=== PATIENT | male | born 1950 | race Caucasian/White ===

== ENCOUNTER → 2016-08-30 | Outpatient (CLI) | payer OTHER ==
[2016-08-30 12:07] LABS: Blood Urea Nitrogen 13 mg/dL (9-20); Non-African American GFR(MDRD) >60 (>60 ml/min/1.73 sqM)
--- NOTE | 2016-08-30 13:48 | CT ---
EXAMINATION TYPE: CT abdomen pelvis w con DATE OF EXAM: 08/30/2016 1:30 PM REFERENCE: NONE HISTORY: Prostate Cancer C61 HISTORY: Prostate CA REFERENCE: NONE CT DLP: 1441 mGy Automated exposure control for dose reduction was used. TECHNIQUE: Helical acquisition through the abdomen and pelvis was obtained following the oral ingesti on of with Oral Contrast and following intravenous administration of 100 mL of Omnipaque 300. The brenda a was reformatted in axial, coronal and sagittal projections. FINDINGS: There are emphysematous changes throughout the lungs. There is no pleural or pericardial f luid. The heart is not enlarged. Within the abdomen, the liver, spleen and gallbladder are normal. Both adrenal glands are normal. Both kidneys demonstrate function and appear morphologically normal. The pancreas is unremarkable. There is a 4.5 cm infrarenal abdominal aortic aneurysm with concentric chronic thrombus within it. Th is extends to the bifurcation but does not involve the bifurcation. There is no significant retroperitoneal, iliac or inguinal adenopathy. The bladder is unremarkable. The prostate gland is not visualized. There are occasional diverticula within the sigmoid colon. There is no radiographic evidence of diver ticulitis. The appendix is not visualized. Small bowel loops are normal. There is no evidence of free fluid or free air. There is degenerative disc disease and hypertrophic spondylosis throughout the spine. There are some sclerotic endplate changes. There is a solitary area of sclerosis in the left femoral head. This like ly represents a bone island. IMPRESSION: 1. DIFFUSE EMPHYSEMATOUS CHANGES THROUGHOUT THE LUNGS. 2. INFRARENAL ABDOMINAL AORTIC ANEURYSM WITH MAXIMAL TRANSVERSE DIMENSION OF 4.5 CM. 3. MINIMAL DIVERTICULOSIS OF THE SIGMOID COLON. 4. MILD DEGENERATIVE CHANGE WITHIN THE SPINE.
--- NOTE | 2016-08-30 16:13 | NM ---
EXAMINATION TYPE: NM bone scan whole body DATE OF EXAM: 08/30/2016 3:30 PM COMPARISON: CT abdomen pelvis same date HISTORY: Prostate carcinoma Delayed whole-body scanning was performed following the injection of 27.2 mCi Tc 99m MDP. Images acq uired 3.5 hours post injection. FINDINGS: Soft tissue uptake is within normal limits. Uptake within the knees, feet, hands, shoulders, and spin e is likely degenerative. No areas of abnormal increased or decreased radiopharmaceutical uptake to s uggest metastatic disease. IMPRESSION: Degenerative changes.
== END | disposition home or self-care (01) ==
LOC: RADCTMAIN 11:23
PROVIDERS: ATTEND Urology
DX: I71.4 Abdominal aortic aneurysm, without rupture (principal); K57.30 Diverticulosis of large intestine without perforation or abscess without bleeding; R94.8 Abnormal results of function studies of other organs and systems; C61 Malignant neoplasm of prostate
CPT/HCPCS: 82565; 84520; 74177; 78306; 36415; A9503; Q9967

== ENCOUNTER → 2017-05-29 | Outpatient (CLI) | payer OTHER | END | disposition home or self-care (01) | LOC: LABWHC1 15:42 | PROVIDERS: ATTEND Physician Assistant | DX: Z01.818 Encounter for other preprocedural examination (principal) | CPT/HCPCS: 36415; 93005 ==

== ENCOUNTER → 2018-07-16 | Outpatient (CLI) | payer OTHER ==
--- NOTE | 2018-07-17 09:16 | CTL ---
EXAMINATION TYPE: CT Low Dose Lung DATE OF EXAM ORDERED: 07/16/2018 HISTORY: Personal history of tobacco abuse. Lung cancer screening CT DLP: [address]DI: 2.7 mGy Automated exposure control for dose reduction was used. SCREENING VISIT: Initial COMPARISON: None TECHNIQUE: Low dose computed tomography scan was performed through the chest at 1 mm thick sections a nd reconstructed images in the coronal plane at [address] DIAGNOSTIC QUALITY: Satisfactory FINDINGS: LUNG NODULES: Present, detailed below: There is a solid 3 mm pulmonary nodule appearing to be contiguous with the pleural extension and ther efore possibly related to apical scarring seen on series 4 image 40. This appears solid in nature. Si milar to this there is a 2 mm nodule on series 4 image 51 on the right. There is a 2 mm subpleural solid pulmonary nodule in the right middle lobe on series 4 image 155. Along the interlobar fissure there is an elongated possible intrafissural lymph node measuring 5 mm o n image 163. 2 mm solid pulmonary nodule seen within the left upper lobe on series 4 image 139. LUNGS: COPD: Severity: Moderate Fibrosis: Severity: Minimal biapical pleural parenchymal fibrosis. Lymph nodes: Nonenlarged RIGHT PLEURAL SPACE: Effusion: None Calcification: None Thickening: None Pneumothorax: None LEFT PLEURAL SPACE: Effusion: None Calcification: None Thickening: None Pneumothorax: None HEART: Heart Size: Nonenlarged Coronary calcification: Moderate Pericardial effusion: None OTHER FINDINGS: Upper abdomen: Grossly unremarkable unenhanced limited unenhanced portions. Bony thorax: Mild multilevel degenerative changes of the thoracic spine. Supraclavicular region: The thyroid gland is slightly prominent in size as it extends to the sternal border. Other: Ascending thoracic aorta is mildly enlarged measuring up to 4.3 cm. There is mild symmetric re troareolar probable gynecomastia. IMPRESSION: 1. Bilateral pulmonary nodules that are subcentimeter corresponding to a LUNG RADS category 2. Follow -up CT is recommended in 12 months to ensure stability. 2. Moderate underlying pulmonary emphysema. 3. Mild ascending thoracic aortic aneurysmal dilatation measuring 4.[address] CHEST RECOMMENDATION: Annual low dose CT thorax is recommended CT LUNG RAD: Lung-Rad 2 Benign Appearance or Behavior
== END ==
LOC: RADCTMAIN 15:45
PROVIDERS: ATTEND Family Medicine
DX: Z12.2 Encounter for screening for malignant neoplasm of respiratory organs (principal); I71.2 Thoracic aortic aneurysm, without rupture; J43.9 Emphysema, unspecified; R91.8 Other nonspecific abnormal finding of lung field; F17.210 Nicotine dependence, cigarettes, uncomplicated

== ENCOUNTER → 2018-12-25 | Outpatient (CLI) | payer OTHER ==
[2018-12-25 09:41] LABS: African American GFR (CKD) >90 (>60 ml/min/1.73 sqM); Blood Urea Nitrogen 16 mg/dL (9-20)
--- NOTE | 2018-12-25 12:07 | CT ---
EXAMINATION TYPE: CT abdomen pelvis w con DATE OF EXAM: 12/25/2018 COMPARISON: CT abdomen and pelvis August 30, 2016 HISTORY: Prostate CA per order. 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 DLP: 1207 mGycm, Automated Exposure Control for Dose Reduction was Utilized. CONTRAST: CT scan of the abdomen and pelvis is performed with oral and with IV Contrast, patient injected with 100 mL of Isovue 300. FINDINGS: LUNG BASES: Moderate emphysematous changes noted in the visualized lung bases. LIVER/GB: No significant abnormality is appreciated. PANCREAS: No significant abnormality is seen. SPLEEN: No significant abnormality is seen. ADRENALS: No significant abnormality is seen. KIDNEYS: No significant abnormality is seen. BOWEL: Oral contrast reaches level of the proximal to mid transverse colon. There is ectatic or redun dant transverse colon. There is no suspicious small or large bowel dilatation. PROSTATE/SEMINAL VESICLES: Prostate is not visualized presumed surgically absent. No suspicious recur rent mass at level prostate bed are identified. LYMPH NODES: No greater than 1cm abdominal or pelvic lymph nodes are appreciated. OSSEOUS STRUCTURES: Mild to moderate compression fracture involving superior L1 endplate is new from prior. It is sclerotic suggesting it is chronic in age however. There is moderate disc space narrowin g with endplate sclerosis at the lumbosacral junction. There is mild to moderate although probably an terior spurring with mild to moderate disc space narrowing involving L3-L4 and L4-L5 levels. No suspi cious new sclerotic foci are seen. OTHER: There is redemonstration of infrarenal AAA measuring approximately 6 to 7 cm in length sagitta l image 39. There is moderate to severe peripheral anomaly noncalcified plaque redemonstrated. Aneury sm measures up to 4.7 x 4.4 cm transversely axial image 37 which is felt increased in size from 4.3 x 4.0 cm prior study image 41. There is fairly severe plaque in the right common iliac artery causing stenosis likely greater than 50% axial image 48 and 49 for reference but no significant change from p rior. IMPRESSION: 1. No suspicious new mass or adenopathy is identified to suggest malignant prostatic neoplastic recur rence. 2. Enlarging AAA up to 4.7 cm current study. Advise at minimum 6 month surveillance and also consider surgical or endovascular referral. Significant stenosis greater than 50% though present in the right common iliac artery 3. Interval mild to moderate compression fracture L1 level from 2017 study but felt chronic in age.
--- NOTE | 2018-12-25 16:51 | NM ---
EXAMINATION TYPE: NM bone scan whole body DATE OF EXAM: 12/25/2018 COMPARISON: Prior bone scan 08/30/2016, CT 12/25/2018 HISTORY: Prostate cancer Delayed whole-body scanning was performed following the injection of 25.4 mCi Tc 99m MDP. Images acq uired 4 hours post injection. FINDINGS: Bandlike area of increased radio from a suitable uptake is noted at approximately the L1 vertebral romel dy level which is an interval finding and corresponds to the CT abnormality. Mild additional uptake p resent at the lumbosacral junction and lumbar spine likely is degenerative. Focus of increased uptake is present over the region of the lateral acetabulum as well as within the region of the posterior s acrum, interval findings. Uptake within the maxilla and mandible is likely due to periodontal disease . Degenerative uptake seen within the wrists and shoulders, sternoclavicular joints. Uptake in the an terior neck is stable. IMPRESSION: Metastatic disease is not excluded. Pelvic, lumbar MRI may be of benefit.
== END | disposition home or self-care (01) ==
LOC: RADCTMAIN 08:26
PROVIDERS: ATTEND Urology
DX: Z08 Encounter for follow-up examination after completed treatment for malignant neoplasm (principal); I71.4 Abdominal aortic aneurysm, without rupture; Z85.46 Personal history of malignant neoplasm of prostate; Z90.79 Acquired absence of other genital organ(s)
CPT/HCPCS: 82565; 84520; 74177; 36415; 78306; A9503; Q9967 ×2

== ENCOUNTER → 2019-10-09 | Outpatient (CLI) | payer OTHER | END | disposition home or self-care (01) | LOC: LABWHC1 14:36 | PROVIDERS: ATTEND Family Medicine | DX: Z20.828 Contact with and (suspected) exposure to other viral communicable diseases (principal) ==

== ENCOUNTER → 2020-01-07 | Outpatient (CLI) | payer OTHER ==
--- NOTE | 2020-01-07 08:37 | CT ---
EXAMINATION TYPE: CT chest wo con DATE OF EXAM: 01/07/2020 COMPARISON: Prior low-dose lung screening CT July 16, 2018. Older CT January 13, 2012. HISTORY: solitary pulmonary nodule CT DLP: 360.5 mGycm. Automated Exposure Control for Dose Reduction was Utilized. TECHNIQUE: CT scan of the thorax is performed without IV contrast. FINDINGS: LUNGS: A background moderate underlying emphysematous change is redemonstrated. Stable micronodules a nd scarlike opacity 4 reference largest right middle lobe anteriorly 5 by 2 mm scarlike opacity axia l image 35. No new greater than 4 mm suspicious enlarging pulmonary nodules. No pleural effusion or p neumothorax seen bilaterally. MEDIASTINUM: Lack of IV contrast is noted to limit evaluation for mediastinal and especially hilar ad enopathy. There are no definitive greater than 1 cm hilar or mediastinal lymph nodes. No cardiomega ly or pericardial effusion is seen. Coronary artery calcification is redemonstrated. Stable ascending aortic aneurysm up to 4.2 cm on current study axial image 33. OTHER: There is partial visualization of known AAA measuring 4.1 cm transversely axial images 75. Mil d symmetric bilateral subareolar gynecomastia redemonstrated. Prominent mild to moderate height loss involving the L1 vertebra superior endplate and the anterior aspect is now identified. This was subac [place] abdominal CT December 25, 2018 now chronic in age. IMPRESSION: Moderate emphysematous change without new or enlarging suspicious nodules.
== END | disposition home or self-care (01) ==
LOC: RADCTMAIN 06:35
PROVIDERS: ATTEND Family Medicine
DX: J43.9 Emphysema, unspecified (principal); R91.1 Solitary pulmonary nodule
CPT/HCPCS: 71250

== ENCOUNTER → 2020-10-21 | Outpatient (CLI) | payer OTHER ==
[2020-10-21 15:47] LABS: African American GFR (CKD) >90 (>60 ml/min/1.73 sqM); Blood Urea Nitrogen 14 mg/dL (9-20); Non-African American GFR(CKD) 89 (>60 ml/min/1.73 sqM)
--- NOTE | 2020-10-21 16:58 | CT ---
EXAMINATION TYPE: CT angio abdomen pelvis DATE OF EXAM: 10/21/2020 COMPARISON: 12/25/2018 INDICATION: Follow up for abdominal aortic aneurysm. DLP: 1834 mGycm, Automated exposure control for dose reduction was used. CONTRAST: 100ml mL of Isovue 370. Study performed without Oral Contrast TECHNIQUE: Axial images were obtained from above the diaphragm to the pubic rami in the axial plane a t 5 mm thick sections. Reconstructed images are reviewed on the computer in the coronal plane. 3-D reconstructed images performed on a separate computer by the technologist are presented in rotated on the PACS computer. FINDINGS: Limited CT sections are obtained the lung bases. The lung bases are clear. Emphysematous changes ar e evident. CT ABDOMEN: Liver: Normal Spleen: Normal Pancreas: Normal Adrenal glands: The adrenal glands are normal. Gallbladder: Normal Kidneys: No masses are evident. No hydronephrosis is present. No cysts are present. Delayed images were obtained through the kidneys, which remain unremarkable. Aorta: Vascular calcification is within the aorta. There is an abdominal aortic aneurysm present. Th is begins inferior to the renal arteries with a maximum AP diameter of 5.1 cm. This terminates at the bifurcation. The flow lumen is smaller than the aneurysm. Iliac vessels are calcified but patent. In ternal and external iliac vessels are patent. Common femoral arteries are patent. Profunda femoris an d superficial femoral arteries within the field of view are unremarkable. Three-D reconstructed image s are reviewed which underestimate the aneurysm size. No focal stenosis is identified. Inferior vena cava: Normal. CT PELVIS: Loops of bowel within the abdomen and pelvis are normal. Studies lateral contrast limiting: Evalu ation. Appendix: Normal as visualized. Urinary bladder: Normal. Genitourinary structures: Prostate appears normal Osseous structures: No suspicious lytic or sclerotic lesions. Degenerative disc changes are in the lo wer lumbar spine. IMPRESSIONS: 1. 5.1 cm AP dimension abdominal aortic aneurysm with a smaller flow lumen. This begins in the infra renal region and terminates at the bifurcation and this has increased in size from 2019.
== END | disposition home or self-care (01) ==
LOC: RADCTMAIN 15:02
PROVIDERS: ATTEND Thoracic Surgery (Cardiothoracic Vascular Surgery)
DX: I71.4 Abdominal aortic aneurysm, without rupture (principal)
CPT/HCPCS: 82565; 84520; 36415; 74174; Q9967

== ENCOUNTER 2020-12-10 11:20 | Day surgery (SDC) | payer OTHER ==
[2020-12-09 08:34] VITALS: BMI 24.7
[~2020-12-10 11:20] MED LIST: LACTATED RINGERS 1,000 ML IV SCH
[2020-12-10 11:54] VITALS: TEMP 98.5
[2020-12-10] MEDS ORDERED: LACTATED RINGERS 1,000 ML IV ONE ×2 (12:00→13:40)
[2020-12-10] MEDS ORDERED: PROPOFOL 10 MG/ML 20 ML VIAL IV ONE (13:23)
[2020-12-10] MEDS ORDERED: LIDOCAINE 1% INJ 10MG/ML (20 ML MDV) ONE (13:23)
[2020-12-10] MEDS ORDERED: IV FLUID CONTINUATION 800 ML IV ONE (13:40)
[2020-12-10 13:44] VITALS: PULSE 69
--- NOTE | 2020-12-10 13:52 | P.PCN ---
Date of Procedure: 12/10/20 Procedure(s) Performed: BRIEF HISTORY: Patient is a 70-year-old, pleasant, white male scheduled for an upper endoscopy as a part of value should of progressive dysphagia to solids for the last 2 months duration. He lost 5 pounds since onset of the symptoms. PROCEDURE PERFORMED: Esophagogastroduodenoscopy with biopsy . PREOPERATIVE DIAGNOSIS: Progressive dysphagia to solids and weight loss of 2 months duration IV sedation per anesthesia. PROCEDURE: After informed consent was obtained, the patient was brought into the endoscopy unit. IV sedation was administered by Anesthesia under continuous monitoring. Initially the Olympus GIF-140 video endoscope was inserted into the mouth. Esophagus intubated without any difficulty. It was gradually advanced into the the distal esophagus where there was a tight esophageal stricture with thickened mucosal folds and friable mucosa suspicious for neoplasm. Gentle manipulation I was able to advance the scope into thestomach and duodenum and carefully examined. The bulb of the duodenum appeared normal. and the second part of the duodenum there was a 2 cm slightly raised polyp identified and multiple biopsies were done from this area. The scope at this time was withdrawn to the stomach, adequately insufflated with air, and upon careful examination, mucosa of the antrum, body, cardia and the fundus appeared normal. The scope was then withdrawn into the esophagus. The GE junction was located at 41 cm from the incisors. The esophagus appeared normal. There were no erosions or ulcerations seen and the patient tolerated the procedure well. IMPRESSION: 1. Thickened mucosal folds with friable mucosa and tight esophageal stricture involving the distal esophagus extending from 38-41 cm from the incisors suspicious for neoplasm it is post multiple biopsies . 2 2 cm duodenal polyp in the second part of the duodenum status post multiple biopsies]. RECOMMENDATIONS: The findings of this examination were discussed with the patient as well as his family. He was advised to follow with the biopsy results. He'll be seen in office in 4-5 days to discuss the biopsy results. In the meantime he was advised to be on a liquid and soft diet.
[2020-12-10 13:56] VITALS: BP 116/73; RESP 16
== END 2020-12-10 14:07 | disposition home or self-care (01) ==
LOC: ORWHC2ENDO 11:20
PROVIDERS: ATTEND Internal Medicine Gastroenterology
DX: K22.2 Esophageal obstruction (principal); K31.7 Polyp of stomach and duodenum; J44.9 Chronic obstructive pulmonary disease, unspecified; F17.200 Nicotine dependence, unspecified, uncomplicated; Z79.82 Long term (current) use of aspirin
CPT/HCPCS: 43239; 88305; 88342; J2001; J2704

== ENCOUNTER → 2021-01-07 | Outpatient (CLI) | payer OTHER ==
[2021-01-07 08:49] LABS: African American GFR (CKD) >90 (>60 ml/min/1.73 sqM); Blood Urea Nitrogen 17 mg/dL (9-20); Non-African American GFR(CKD) >90 (>60 ml/min/1.73 sqM)
--- NOTE | 2021-01-07 10:35 | CT ---
EXAMINATION TYPE: CT ChestAbdPelvis w con DATE OF EXAM: 01/07/2021 COMPARISON: Chest CT January 07, 2020. CT abdomen and pelvis December 25, 2018. HISTORY: follow up esophageal cancer CT DLP: 780.8 mGycm. Automated Exposure Control for Dose Reduction was Utilized. CONTRAST: CT scan of the thorax, abdomen and pelvis is performed with IV Contrast, patient injected with 100 mL of Isovue 300. FINDINGS: LUNGS: Background of moderate underlying emphysematous change is redemonstrated. No new or enlarging greater than 5 mm nodules or masses. Stable 5 x 3 mm scarlike opacity right middle lobe axial image 3 4. No pleural effusion or pneumothorax seen. MEDIASTINUM: There are no greater than 1 cm hilar or mediastinal lymph nodes. No cardiomegaly or pe ricardial effusion is seen. OTHER: Bilateral subareolar gynecomastia redemonstrated.. LIVER/GB: No significant abnormality is appreciated. PANCREAS: No significant abnormality is seen. SPLEEN: No significant abnormality is seen. ADRENALS: No significant abnormality is seen. KIDNEYS: No significant abnormality is seen. BOWEL: Oral contrast has not reached terminal ileum level making evaluation of distal bowel suboptima l. Few diverticula in the sigmoid colon are present. No suspicious small or large bowel dilatation. GENITAL ORGANS: Prostate not visualized and presumed surgically absent. LYMPH NODES: No greater than 1cm abdominal or pelvic lymph nodes are appreciated. OSSEOUS STRUCTURES: Stable quxv-be-hfzkroom height loss superior L1 endplate. Moderate disc space jyoti rowing with endplate sclerosis L5-S1 level redemonstrated. OTHER: There is more prominent infrarenal AAA up to 5.0 cm axial image 84. Length of aneurysm is 6 to 7 cm coronal image 45. This is stable for more recent study October 21, 2020. Significant surrounding n oncalcified intramural plaque redemonstrated. No extension into common iliac arteries. Persistent sli ght aneurysm and prominent noncalcified plaque in the right common iliac artery similar to prior. No new stenosis. IMPRESSION: 1. No new mass or adenopathy to suggest neoplastic recurrence.
== END | disposition home or self-care (01) ==
LOC: RADCTMAIN 08:05
PROVIDERS: ATTEND Internal Medicine Hematology & Oncology
DX: C15.5 Malignant neoplasm of lower third of esophagus (principal); R91.8 Other nonspecific abnormal finding of lung field; I71.4 Abdominal aortic aneurysm, without rupture
CPT/HCPCS: 82565; 84520; 71260; 74177; Q9967

== ENCOUNTER → 2021-03-11 | Outpatient (CLI) | payer BC ==
--- NOTE | 2021-03-14 07:37 | PE ---
EXAMINATION TYPE: PET CT fusion skull to thigh DATE OF EXAM: 03/11/2021 COMPARISON: Full body CT January 07, 2021 HISTORY: Esophageal cancer on recent endoscopic biopsy. History of several types of cancers probati on. 2004 prostate. 2005 larynx. 2017 tongue. TECHNIQUE: Following the intravenous administration of 8.96 mCi of F-18 FDG, whole body images are p erformed from the skull base to the midthigh. Images are reviewed on the computer in the coronal, ax ial, and sagittal planes. Reconstructed rotating images are created on independent workstation and r eviewed on the computer. A localization and attenuation correction CT is performed in conjunction w ith the PET scan. Blood glucose level equals 92. SCAN: Subsequent Scan FINDINGS: SKULL BASE AND NECK: No suspicious areas of abnormal hypermetabolic uptake. CHEST, MEDIASTINUM, AND HILAR REGION: Moderate underlying emphysematous change is redemonstrated. Mil d intraluminal gastric uptake, similar slightly more prominent focal just under 1.0 cm uptake in the distal esophagus max SUV at level of diaphragmatic hiatus on axial image 134 is 4.38. No definitive suspicious areas of abnormal hypermetabolic uptake. No adjacent hypermetabolic adenopat hy. ABDOMEN AND PELVIS: Mild nonspecific uptake throughout the spleen without suspicious CT lesion. Dulce l excretion. No additional areas of abnormal hypermetabolic uptake. OSSEOUS STRUCTURES: No abnormal hypermetabolic uptake. OTHER CT: Moderate underlying emphysematous change redemonstrated. Bilateral gynecomastia again seen. Mild/moderate coronary artery calcification. There is 5.3 x 5.0 cm AAA axial image 186. No iliac artery extension. Few diverticula in the sigmoid colon. Prostate not visualized similar to prior, suspected surgically absent. Moderate disc space narrowing lumbosacral junction. Mild height loss superior L1 vertebra. IMPRESSION: Small focal uptake distal esophagus at level of diaphragmatic hiatus likely corresponds t o new recently biopsy proven neoplasm or adenocarcinoma. No active hypermetabolic adenopathy or metas tatic disease identified.
== END | disposition home or self-care (01) ==
LOC: RADPETMAIN 10:17
PROVIDERS: ATTEND Internal Medicine Hematology & Oncology
DX: C15.5 Malignant neoplasm of lower third of esophagus (principal)
CPT/HCPCS: 78815; A9552

== ENCOUNTER 2021-03-14 13:57 | Day surgery (SDC) | payer BC ==
[2021-03-11 09:26] VITALS: BMI 20.5
[~2021-03-14 13:57] MED LIST changes: +ACETAMINOPHEN TAB 500 MG TAB PO PRN; +DEXAMETHASONE SOD PHOSPHATE 4 MG/ML 1 ML VIAL IV ONE; +HEPARIN SODIUM,PORCINE/PF 5,000 UNIT/0.5 ML SYRINGE SQ PRN; +HYDROmorphone 0.5 MG/0.5 ML SYRINGE IVP PRN; +ONDANSETRON 4 MG/2 ML VIAL IVP ONE; +Pre Op ABX Message 1 EACH MISC MISCELLANE ONE
[2021-03-14] MEDS ORDERED: ONDANSETRON 4 MG/2 ML VIAL ONE (14:29)
--- NOTE | 2021-03-14 14:37 | P.GSHP ---
History of Present Illness H&P Date: 03/14/21 Chief Complaint: Esophageal cancer 70-year-old male here today for Port-A-Cath placement. Patient was recently diagnosed with esophageal cancer. Patient is having neoadjuvant chemoradiation. He has not had a port previously. He thinks he will be starting chemotherapy in the next week or so. Past Medical History Past Medical History: Cancer, COPD, Osteoarthritis (OA), Prostate Disorder Additional Past Medical History / Comment(s): abdominal aortic aneurysm, frequent diarrhea, hx skin cancer, prostate cancer, throat cancer, & oral cancer. , occasional vomiting, dysphagia. History of Any Multi-Drug Resistant Organisms: None Reported Past Surgical History: Appendectomy, Orthopedic Surgery, Prostate Surgery Additional Past Surgical History / Comment(s): rt shoulder surgery, oral cancer surgery, left cataract Past Anesthesia/Blood Transfusion Reactions: No Reported Reaction Past Psychological History: Anxiety, Depression Additional Psychological History / Comment(s): spouse states alittle Smoking Status: Current every day smoker, Heavy tobacco smoker Past Alcohol Use History: None Reported Additional Past Alcohol Use History / Comment(s): 2 PPD or less., has smoked fo r 54 yrs Past Drug Use History: Marijuana Additional Drug Use History / Comment(s): CURRENT MARIJUANA GUMMIES - Past Family History Mother Family Medical History: Cancer Additional Family Medical History / Comment(s): breast Medications and Allergies Home Medications Medication Instructions Recorded Confirmed Type Loperamide [Imodium] 6 mg PO QAM PRN 02/09/15 03/14/21 History Albuterol Sulfate [Proair 1 puff INHALATION DIRECTED PRN 12/09/20 03/14/21 History Digihaler] Aspirin [Adult Low Dose Aspirin EC] 81 mg PO DAILY 12/09/20 03/14/21 History Calcium Carbonate [Calcium] 600 mg PO DAILY 12/09/20 03/14/21 History Gabapentin 300 mg PO TID 12/09/20 03/14/21 History Fluticasone/Salmeterol 1 puff INHALATION DAILY 03/11/21 03/14/21 History [Fluticasone-Salmeterol 232-14] diphenhydrAMINE [Benadryl] 50 mg PO HS PRN 03/11/21 03/14/21 History Allergies Allergy/AdvReac Type Severity Reaction Status Date / Time pregabalin [From Lyrica] Allergy "spaced Verified 03/14/21 14:25 out and off balance" Surgical - Exam Physical exam: General: Well-developed, somewhat malnourished appearing HEENT: Normocephalic, sclerae nonicteric Abdomen: Nontender, nondistended Extremities: No edema Neuro: Alert and oriented Assessment and Plan (1) Esophageal cancer Narrative/Plan: 70-year-old male with recent diagnosis of esophageal cancer. We'll proceed with Port-A-Cath placement at this time. Risks of bleeding, infection, DVT, pneumothorax, catheter malfunction, anesthesia related complications were discussed. The patient understands and wishes to proceed. Current Visit: Yes Status: Acute Code(s): C15.9 - MALIGNANT NEOPLASM OF ESOPHAGUS, UNSPECIFIED SNOMED Code(s): 332151847
[2021-03-14] MEDS ORDERED: SODIUM CHLORIDE 0.9% 100 ML with ceFAZolin 2,000 MG IV ONE ×2 (15:26)
[2021-03-14] MEDS ORDERED: LIDOCAINE 1% INJ 10MG/ML (20 ML MDV) SQ ONE ×2 (15:28)
[2021-03-14] MEDS ORDERED: ACETAMINOPHEN TAB 325 MG TAB PO PRN (15:53)
[2021-03-14] MEDS ORDERED: NALOXONE 0.4 MG/ML 1 ML VIAL IV PRN (15:53)
--- NOTE | 2021-03-14 15:56 | P.OP ---
Date of Procedure: 03/14/21 Procedure(s) Performed: PREOPERATIVE DIAGNOSIS: Esophageal cancer POSTOPERATIVE DIAGNOSIS: Same PROCEDURE: Port-A-Cath placement with fluoroscopic and ultrasound guidance SURGEON: Triston EBL: Minimal ANESTHESIA: Sedation COMPLICATIONS: None OPERATIVE PROCEDURE: Patient was brought and placed on the operative table in the supine position. The patient was sedated per anesthesia that time. The chest and neck were prepped and draped in usual sterile fashion. The ultrasound probe was used to identify the location of the right internal jugular vein. The skin was localized with lidocaine. The Seldinger needle was advanced into the IJ under ultrasound guidance. The wire was advanced through the needle under fluoroscopic guidance into the superior vena cava. A port pocket was created in the right infraclavicular location. The catheter was tunneled from the wire entrance site to the port pocket. The port was then connected to the catheter. The dilator introducer was threaded over the guidewire. The guidewire and dilator were then removed. The catheter was advanced through the introducer and introducer was then removed. The tip was seen to be in the right atrial junction via fluoroscopy. A picture of the radiograph showing the tip at the radial digital junction was taken. Port was flushed with both saline and a Hep- Lock solution. There was good flow both in and out of the port. The port was sutured in underlying tissues using 3-0 silk sutures. The subcutaneous tissues were reapproximated using 3-0 Vicryl sutures and the skin at both locations using 4-0 Monocryl sutures. Skin glue and sterile dressings then applied. DISPOSITION: Stable to recovery room
[2021-03-14] MEDS ORDERED: LIDOCAINE 1% INJ 10MG/ML (20 ML MDV) ONE (16:06)
[2021-03-14] MEDS ORDERED: PROPOFOL 10 MG/ML 20 ML VIAL IV ONE (16:06)
[2021-03-14] MEDS ORDERED: MIDAZOLAM 2 MG/2 ML VIAL ONE (16:06)
[2021-03-14] MEDS ORDERED: PHENYLEPHRINE-0.9% NACL SYG 1,000 MCG/10 ML SYRINGE ONE (16:06)
[2021-03-14] MEDS ORDERED: .fentaNYL (PF) 50 MCG/ML 2 ML AMP ONE (16:06)
[2021-03-14 16:07] VITALS: TEMP 98
--- NOTE | 2021-03-14 16:28 | XR ---
EXAMINATION TYPE: XR chest 1V portable DATE OF EXAM: 03/14/2021 COMPARISON: Chest x-ray January 13, 2012. Most recent CT January 07, 2021. HISTORY: Esophageal cancer status post Mediport catheter insertion. TECHNIQUE: Single frontal view of the chest is obtained. FINDINGS: There is new right internal jugular Mediport catheter terminating in SVC. There is backgro und moderate underlying emphysematous change without suspicious focal air space opacity, pleural effu regis, or pneumothorax seen. The cardiac silhouette size is stable and within normal limits. The os seous structures remain demineralized. IMPRESSION: Chronic emphysematous change without acute pulmonary process. No pneumothorax after Medi port catheter insertion.
[2021-03-14 17:21] VITALS: BP 136/76; PULSE 68; RESP 16
--- NOTE | 2021-03-14 17:27 | FL ---
Fluoroscopy HISTORY: Port-A-Cath insertion 7 seconds fluoroscopy time supplied to the referring clinician. 1 intraoperative C-arm images docume nt the procedure. See dictated report from general surgery.
== END 2021-03-14 17:24 | disposition home or self-care (01) ==
LOC: OR 13:57
PROVIDERS: ATTEND Surgery
DX: C15.9 Malignant neoplasm of esophagus, unspecified (principal); J44.9 Chronic obstructive pulmonary disease, unspecified; I71.9 Aortic aneurysm of unspecified site, without rupture; Z98.890 Other specified postprocedural states; Z80.3 Family history of malignant neoplasm of breast; Z80.8 Family history of malignant neoplasm of other organs or systems; Z86.19 Personal history of other infectious and parasitic diseases; F41.9 Anxiety disorder, unspecified; F32.A Depression, unspecified; F17.210 Nicotine dependence, cigarettes, uncomplicated; D69.6 Thrombocytopenia, unspecified; D68.312 Antiphospholipid antibody with hemorrhagic disorder; D47.2 Monoclonal gammopathy; A08.8 Other specified intestinal infections; Z85.21 Personal history of malignant neoplasm of larynx; Z90.79 Acquired absence of other genital organ(s); Z85.46 Personal history of malignant neoplasm of prostate; Z85.828 Personal history of other malignant neoplasm of skin; Z85.819 Personal history of malignant neoplasm of unspecified site of lip, oral cavity, and pharynx; Z79.82 Long term (current) use of aspirin; Z79.899 Other long term (current) drug therapy; Z88.8 Allergy status to other drugs, medicaments and biological substances
CPT/HCPCS: 77001; 71045; 36561; 37252; C1788; J2250; J1100; J2405; J0690; J2001; J3010; J1642; J2370; J2704; J1644

== ENCOUNTER → 2021-05-20 | Outpatient (CLI) | payer BC ==
--- NOTE | 2021-05-20 12:13 | PE ---
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 A localization and attenuation correction CT scan was performed. Correlation to prior nuclear medicine PET/CT dated 03/11/2021 Chest and neck: The area of abnormal uptake seen on prior exam at the level the distal esophagus with some esophageal thickening is present, the activity has improved in the interval. There is no cervic al or supraclavicular adenopathy, no mediastinal, axillary, or hilar adenopathy. Coronary artery calc ifications are present. There is no pleural or pericardial effusion. No evident lung mass. Emphysemat ous changes are present within the lungs. There is a port present in the right pectoral region with t ip of the catheter in the superior vena cava. Ascending aortic aneurysm is present measuring approxim ately 4.6 cm. There are changes of gynecomastia. Coronary artery calcifications are present. ABDOMEN: Abdominal aortic aneurysm measures 5.9 cm. There is no retroperitoneal adenopathy or ascites . No evident liver mass or suspicious uptake. No pelvic adenopathy. Osseous structures show degenerative disc change and facet arthropathy in the lumbar spine. At the le nicole of the anterior left fifth rib there is some uptake identified which is mild and new, previously identified uptake along the left seventh and eighth ribs laterally is mild and decreased compared to prior. There is a fracture noted at the left eighth rib as on prior. IMPRESSION: There is interval improvement in the distal esophageal uptake. Correlate for history of t rauma, rib fracture as described on the left
== END | disposition home or self-care (01) ==
LOC: RADPETMAIN 07:19
PROVIDERS: ATTEND Internal Medicine Hematology & Oncology
DX: C15.5 Malignant neoplasm of lower third of esophagus (principal)
CPT/HCPCS: 78815; A9552

== ENCOUNTER → 2021-06-10 | Outpatient (CLI) | payer BC ==
[2021-06-10 07:51] LABS: African American GFR (CKD) >90 (>60 ml/min/1.73 sqM); Blood Urea Nitrogen 11 mg/dL (9-20); Non-African American GFR(CKD) >90 (>60 ml/min/1.73 sqM)
--- NOTE | 2021-06-10 09:10 | CT ---
EXAMINATION TYPE: CT angio abdomen pelvis DATE OF EXAM: 06/10/2021 INDICATION: aortic aneurysm CT DLP: 587.70 mGy.cm Automated Exposure Control for Dose Reduction was Utilized. TECHNIQUE AND CONTRAST: CT scan of the abdomen and pelvis is performed without and with IV Contrast, patient injected with 10 0 mL of Isovue 370. MIP and 3-D reconstruction images were performed and reviewed. COMPARISON: CT dated 18 April 2020 FINDINGS: Redemonstration of the previously seen infrarenal abdominal aortic aneurysm measuring 5.5 x 5.8 cm co mpared to 5.4 x 5.6 cm previously. Large mural thrombus is seen within the aneurysm with the patent l umen measures 3.3 x 2.1 cm. The aneurysm extends for 10.5 mm. No evidence of periaortic hematoma or c ollection. No extension of the aneurysm into the common iliac arteries. Ectasia of the right common i liac artery measuring up to 16mm, partially thrombosed without significant stenosis or occlusion. Extensive arterial atherosclerotic calcifications of the visualized lower thoracic and abdominal aort a. Atherosclerotic abdominal and pelvic arteries without significant stenosis or occlusion. The right hepatic artery is seen arising from the superior mesenteric artery. Opacified inferior mesenteric ar marlin. Single renal artery supplying each kidney. Inferior esophageal wall thickening, likely corresponding to the known esophageal carcinoma, kindly r efer to the PET scan report dated 05/20/2021. Unremarkable nondistended stomach, duodenum and small romel wel. Scattered uncomplicated colonic diverticulosis with segments of nonspecific colonic thickening, correlate with coloscopy results. No definite hepatic focal lesion. Unremarkable gallbladder, spleen, pancreas, adrenals and kidneys. The urinary bladder is not distended. No suspicious abdominal or pel michelle lymphadenopathy. No sizable ascites. COPD changes of the lung bases. Osteopenia. Stable L1 upper endplate depression and degenerative changes of the lower lumbar spine. IMPRESSION: Minimal interval increase in the size of the known infrarenal abdominal aortic aneurysm as described above. Other findings as detailed above.
== END | disposition home or self-care (01) ==
LOC: RADCTMAIN 06:54
PROVIDERS: ATTEND Surgery
DX: I71.4 Abdominal aortic aneurysm, without rupture (principal)
CPT/HCPCS: 82565; 84520; 36415; 74174; Q9967

== ENCOUNTER 2021-07-08 06:02 | Inpatient (IN) | payer BC, MEDICARE ==
[2021-07-06 12:08] VITALS: BMI 22.3
[~2021-07-08 06:02] MED LIST changes: -ACETAMINOPHEN TAB 500 MG TAB PO PRN; +ALPRAZolam 0.25 MG TAB PO PRN; -HEPARIN SODIUM,PORCINE/PF 5,000 UNIT/0.5 ML SYRINGE SQ PRN; -HYDROmorphone 0.5 MG/0.5 ML SYRINGE IVP PRN; -LACTATED RINGERS 1,000 ML IV SCH; +LIDOCAINE 1% (10MG/ML) FOR IV START INTRADERMA PRN; +MIDAZOLAM 2 MG/2 ML VIAL IV PRN; -Pre Op ABX Message 1 EACH MISC MISCELLANE ONE; +SODIUM CHLORIDE 0.9% 1,000 ML in EMPTY BAG 1 BAG IV ONE; +ZOLPIDEM 5 MG TAB PO PRN
[2021-07-08] MEDS ORDERED: SODIUM CHLORIDE 0.9% 1,000 ML IV ONE (06:16)
[2021-07-08 06:54] LABS: Basophils # (A) 0.1 k/uL (0-0.2); Basophils % (A) 1 %; Eosinophils # (A) 0.6 k/uL (0-0.7); Eosinophils % (A) 6 %; HCT 38.3 % (39.0-53.0); HGB 11.8 gm/dL (13.0-17.5); Lymphocytes # (A) 1.1 k/uL (1.0-4.8); Lymphocytes % (A) 11 %; MCH 29.2 pg (25.0-35.0); MCHC 30.8 g/dL (31.0-37.0); MCV 94.7 fL (80.0-100.0); Mean Platelet Volume 8.2; Monocytes # (A) 0.7 k/uL (0-1.0); Monocytes % (A) 8 %; Neutrophils # (A) 6.7 k/uL (1.3-7.7); Neutrophils % (A) 72 %; Platelet Count 201 k/uL (150-450); RBC 4.04 m/uL (4.30-5.90); RDW 15.3 % (11.5-15.5); WBC 9.3 k/uL (3.8-10.6)
[2021-07-08] MEDS ORDERED: ceFAZolin 1 GM in SODIUM CHLORIDE 0.9% 250 ML IRRIGATION PRN (07:00)
[2021-07-08] MEDS ORDERED: fentaNYL (PF) 50 MCG/ML 2 ML AMP IVP PRN (07:00)
[2021-07-08] MEDS ORDERED: HYDROmorphone 0.5 MG/0.5 ML SYRINGE IVP PRN (07:00)
[2021-07-08 07:03] LABS: African American GFR (CKD) >90 (>60 ml/min/1.73 sqM); Anion Gap 5 mmol/L; Blood Urea Nitrogen 15 mg/dL (9-20); Calcium 8.6 mg/dL (8.4-10.2); Carbon Dioxide 26 mmol/L (22-30); Chloride 108 mmol/L (98-107); Glucose 101 mg/dL (74-99); Non-African American GFR(CKD) >90 (>60 ml/min/1.73 sqM); Sodium 139 mmol/L (137-145)
[2021-07-08] MEDS ORDERED: PHENYLEPHRINE-0.9% NACL SYG 1,000 MCG/10 ML SYRINGE ONE (08:17)
[2021-07-08] MEDS ORDERED: ONDANSETRON 4 MG/2 ML VIAL ONE (08:17)
[2021-07-08] MEDS ORDERED: NITROGLYCERIN-D5W PMX 50 MG/250 ML BOTTLE IV ONE (08:17)
[2021-07-08] MEDS ORDERED: HYDROmorphone (PF) 1 MG/ML ONE (08:17)
[2021-07-08] MEDS ORDERED: fentaNYL (PF) 50 MCG/ML 2 ML AMP ONE (08:17)
[2021-07-08] MEDS ORDERED: MIDAZOLAM 2 MG/2 ML VIAL ONE (08:17)
[2021-07-08] MEDS ORDERED: PROTAMINE SULFATE 10 MG/ML 5 ML VIAL IV ONE (08:17)
[2021-07-08] MEDS ORDERED: GLYCOPYRROLATE 0.2 MG/ML 2 ML VIAL ONE (08:17)
[2021-07-08] MEDS ORDERED: NEOSTIGMINE 1 MG/ML 10 ML VIAL ONE (08:17)
[2021-07-08] MEDS ORDERED: HEPARIN SODIUM,PORCINE 10,000 UNIT/ML 1 ML VIAL ONE (08:17)
[2021-07-08] MEDS ORDERED: PROPOFOL 10 MG/ML 20 ML VIAL IV ONE (08:17)
[2021-07-08] MEDS ORDERED: ROCURONIUM 10 MG/ML (5 ML VIAL) IV ONE (08:17)
[2021-07-08] MEDS ORDERED: LIDOCAINE 1% INJ 10MG/ML (20 ML MDV) ONE (08:17)
[2021-07-08] MEDS ORDERED: LACTATED RINGERS 1,000 ML IV ONE (08:50)
[2021-07-08] MEDS ORDERED: IOPAMIDOL-250 100ML BTL INTRAARTER ONE ×2 (10:05→10:06)
[2021-07-08] MEDS ORDERED: ALBUTEROL NEBULIZED 2.5 MG/3 ML INHALATION PRN (11:28)
--- NOTE | 2021-07-08 11:40 | IR ---
EXAMINATION TYPE: IR canal boat captain aorta DATE OF EXAM: 07/08/2021 COMPARISON: NONE HISTORY: Abdominal aortic aneurysm Fluoroscopy support supplied to the referring clinician. See dictated report from vascular surgery, 11.1 minutes fluoroscopy time, 153 intraoperative C-arm images document the procedure
--- NOTE | 2021-07-08 15:09 | P.OP ---
Date of Procedure: 07/08/21 Preoperative Diagnosis: 5.9 cm infrarenal abdominal aortic aneurysm. Postoperative Diagnosis: Same. Procedure(s) Performed: #1: Ultrasound-guided cannulation of the right femoral artery 2 with placement of percutaneous closure device. #2: Placement of aortobiiliac endograft. Implants: Endurat lls stent graft system. Anesthesia: BOOGIE Surgeon: Ck Ackreman Estimated Blood Loss (ml): 50 Pathology: none sent Condition: stable Disposition: PACU Indications for Procedure: Patient is a 70-year-old male who was followed for an infrarenal abdominal aortic aneurysm. This is increased in size and now measures 5.9 cm in greatest transverse diameter. Anatomically the patient was felt to be a good candidate for stent graft procedure. Stent graft procedure as well as open repair of the aneurysm were discussed with the patient including risk and benefits of both options. Patient wished to proceed with stent graft repair. Description of Procedure: Patient was brought to the special procedure suite. He was administered general endotracheal anesthesia delivered by the primary anesthesiology. Calle catheter is placed to gravity drainage. Intravenously administered prophylactic antibiotics were administered in the perioperative phase. The patient's lower chest, abdomen, pelvic as well as anterior thigh areas were sterilely prepped and draped in the usual manner. Utilizing ultrasound the right common femoral artery was identified. With the aid of ultrasound a multipurpose needle was utilized to cannulate the artery. Once cannulated a Softip guidewire was advanced into the iliac artery. The needle was withdrawn and replaced with a 6-Scottish sheath. Perclose device was then placed in the tended for position and the 2-8 position. A similar procedure was performed on the left common femoral artery. Glidewire was advanced from the low left over which a marker pigtail catheter was positioned at the T12/L1 level. From the right a Lunderquist wire was advanced and position in the aortic knob. The patient was administered intravenous heparin and ACT was drawn and appropriate timeframe. This was found to be 254. From the right the main body measuring 28 x 14 x 103 mm was advanced over the Lunderquist guidewire after the sheath was withdrawn. Planing angiogram was then performed noting the origins of both the right and left renal arteries. The graft was then deployed just below the origin of the renal arteries until the contralateral gate opened. From the left a Glidewire was advanced through the pigtail catheter and the patient to catheter was withdrawn, being exchanged for an angled glide catheter. [place] wire and glide catheter combination were utilized to cannulate the gait. The glide catheter was advanced into the suprarenal aortic segment and the Glidewire was exchanged for a Lunderquist wire. The marker pigtail catheter was then advanced over the guidewire and a left iliac angiogram was performed. Distance between the flow divider and the origin of the internal iliac was noted. Subsequently a 16 x 10 x 124 mm stent graft was selected. The pigtail catheter and sheath were removed and over the wire the 16 x 10 x 124 mm stent graft was positioned and successfully deployed. The delivery device was removed and a 14-Scottish sheath was placed over the wire. From the right the main body was deployed Calle. Once deployed Calle a delivery device was then removed and a 14-Scottish sheath was placed from the right. The dilator was removed and the marker pigtail catheter was then advanced. Right iliac angiogram was performed with notation of the bifurcation of the common into the external and internal segments. A 16 x 13 x 146 mm stent graft was selected and successfully deployed. The delivery system was removed. Compliant balloon dilation was then performed at all points of contact of the stent graft and [place] arterial tree and overlapping segments. A total catheter was then readvanced and positioned at the L1 level. Completion angiogram was performed which did not demonstrate any evidence of any type of endoleak. With the above findings noted sheath on the right was removed and utilizing the previously placed Perclose suture the artery was successfully closed. A similar procedure was performed on the contralateral side. The patient was administered 25 mg of protamine to reverse the heparin effect. Patient tolerated procedure well, awoke without apparent complication was transferred to the recovery area satisfactory and stable condition area a palpable dorsalis pedis pulse was noted bilaterally at the completion of the procedure.
[2021-07-08] MEDS: LACTATED RINGERS 1,000 ML IV SCH ×2 (17:19→23:27)
[2021-07-08] MEDS: GABAPENTIN 300 MG CAP PO SCH ×2 (18:00→21:42)
[2021-07-08] MEDS: HYDROcodone/APAP 5-325MG 1 EACH TAB PO PRN (21:41)
[2021-07-09 00:21] VITALS: RESP 16
[2021-07-09 08:03] LABS: African American GFR (CKD) >90 (>60 ml/min/1.73 sqM); Anion Gap 4 mmol/L; Blood Urea Nitrogen 12 mg/dL (9-20); Calcium 8.2 mg/dL (8.4-10.2); Carbon Dioxide 23 mmol/L (22-30); Chloride 109 mmol/L (98-107); Glucose 106 mg/dL (74-99); Non-African American GFR(CKD) >90 (>60 ml/min/1.73 sqM); Potassium 4.2 mmol/L (3.5-5.1); Sodium 136 mmol/L (137-145)
[2021-07-09] MEDS ORDERED: ASPIRIN 81 MG PO SCH (09:00)
[2021-07-09 09:34] VITALS: BP 110/52; PULSE 57; TEMP 98
[2021-07-09] MEDS: HYDROcodone/APAP 5-325MG 1 EACH TAB PO PRN (09:35)
[2021-07-09] MEDS: GABAPENTIN 300 MG CAP PO SCH (09:36)
[2021-07-09] MEDS ORDERED: ALBUTEROL SULFATE 90 MCG INHALATION PRN (10:41)
--- NOTE | 2021-07-09 10:53 | P.CONS ---
History of Present Illness - Reason for Consult COPD - History of Present Illness Patient is a pleasant 70-year-old male is admitted at for elective aorto iliac endograft placement for a 55.9 cm infrarenal abdominal aortic aneurysm. Patient is clinically doing well and can use to smoke about 2 packs of cigarettes per day does have history of COPD but not in acute exacerbation. Patient denied any complaints at this time. REVIEW OF SYSTEMS: CONSTITUTIONAL: No fever, no malaise, no fatigue. HEENT: No recent visual problems or hearing problems. Denied any sore throat. CARDIOVASCULAR: No chest pain, orthopnea, PND, no palpitations, no syncope. PULMONARY: No shortness of breath, no cough, no hemoptysis. GASTROINTESTINAL: No diarrhea, no nausea, no vomiting, no abdominal pain. NEUROLOGICAL: No headaches, no weakness, no numbness. HEMATOLOGICAL: Denies any bleeding or petechiae. GENITOURINARY: Denies any burning micturition, frequency, or urgency. MUSCULOSKELETAL/RHEUMATOLOGICAL: Denies any joint pain, swelling, or any muscle pain. ENDOCRINE: Denies any polyuria or polydipsia. The rest of the 14-point review of systems is negative. PHYSICAL EXAMINATION: GENERAL: The patient is alert and oriented x3, not in any acute distress. Well developed, well nourished. HEENT: Pupils are round and equally reacting to light. EOMI. No scleral icterus. No conjunctival pallor. Normocephalic, atraumatic. No pharyngeal erythema. No thyromegaly. CARDIOVASCULAR: S1 and S2 present. No murmurs, rubs, or gallops. PULMONARY: Chest is clear to auscultation, no wheezing or crackles. ABDOMEN: Soft, nontender, nondistended, normoactive bowel sounds. No palpable organomegaly. MUSCULOSKELETAL: No joint swelling or deformity. EXTREMITIES: No cyanosis, clubbing, or pedal edema. NEUROLOGICAL: Gross neurological examination did not reveal any focal deficits. SKIN: No rashes. Assessment and plan COPD Without any acute exacerbation patient can be continued on inhaled steroids and inhalational treatments and as-needed basis -Abdominal aortic aneurysm for which patient received endograft. Patient can be discharged from medical perspective cleared by vascular surgery did reviewed the home medications no need for any changes in his home medications but continuation of aspirin as per primary service counseling regarding nicotine use was provided and patient was prescribed nicotine patches. -Lipidemia -Benign prostatic hypertrophy Past Medical History Past Medical History: Cancer, COPD, Hyperlipidemia, Osteoarthritis (OA), Prostate Disorder, Skin Disorder Additional Past Medical History / Comment(s): abdominal aortic aneurysm, hx skin cancer, hx prostate cancer, hx esophageal cancer, hx oral cancer, vocal cord cancer History of Any Multi-Drug Resistant Organisms: None Reported Past Surgical History: Appendectomy, Orthopedic Surgery, Prostate Surgery Additional Past Surgical History / Comment(s): rt shoulder surgery, oral cancer surgery, left cataract, egd, colonoscopy Past Anesthesia/Blood Transfusion Reactions: No Reported Reaction Smoking Status: Current every day smoker - Past Family History Mother Family Medical History: Cancer Additional Family Medical History / Comment(s): breast Medications and Allergies Home Medications Medication Instructions Recorded Confirmed Type Loperamide [Imodium] 6 mg PO QAM PRN 02/09/15 07/06/21 History Albuterol Sulfate [Proair 1 puff INHALATION Q6HR PRN 12/09/20 07/08/21 History Digihaler] Aspirin [Adult Low Dose Aspirin EC] 81 mg PO DAILY 12/09/20 07/08/21 History Calcium Carbonate [Calcium] 600 mg PO DAILY 12/09/20 07/08/21 History Gabapentin 300 mg PO TID 12/09/20 07/08/21 History Fluticasone/Salmeterol 1 puff INHALATION DAILY 03/11/21 07/08/21 History [Fluticasone-Salmeterol 232-14] diphenhydrAMINE [Benadryl] 50 mg PO HS PRN 03/11/21 07/06/21 History Atorvastatin [Lipitor] 80 mg PO DAILY 07/06/21 07/08/21 History HYDROcodone/APAP 5-325MG [Bodfish 1 tab PO TID 07/06/21 07/08/21 History 5-325] Nicotine 21Mg/24Hr Patch [Habitrol] 1 each TRANSDERM DAILY #14 patch 07/09/21 Rx Allergies Allergy/AdvReac Type Severity Reaction Status Date / Time pregabalin [From Lyrica] Allergy "spaced Verified 07/08/21 06:58 out and off balance" Physical Exam Vitals: Vital Signs Temp Pulse Resp BP BP BP BP 07/09/21 09:33 98 F 57 L 16 110/52 07/09/21 04:00 97.8 F 66 16 90/45 07/09/21 02:00 69 16 07/09/21 00:00 97.7 F 69 16 102/62 90/53 07/08/21 20:00 66 17 07/08/21 19:57 97.6 F 66 17 112/68 07/08/21 16:10 97.8 F 65 17 119/71 07/08/21 14:45 61 17 07/08/21 14:30 97.9 F 61 17 107/67 07/08/21 13:16 66 16 121/60 129/67 07/08/21 12:46 64 16 123/67 133/79 07/08/21 12:16 68 16 122/58 121/60 07/08/21 12:01 64 16 134/56 124/70 07/08/21 11:46 64 16 134/60 125/65 07/08/21 11:31 62 16 124/70 131/76 07/08/21 11:13 62 12 131/52 07/08/21 10:58 62 14 129/51 Pulse Ox 07/09/21 09:33 95 07/09/21 04:00 93 L 07/09/21 02:00 07/09/21 00:00 92 L 07/08/21 20:00 07/08/21 19:57 97 07/08/21 16:10 95 07/08/21 14:45 07/08/21 14:30 95 07/08/21 13:16 96 07/08/21 12:46 99 07/08/21 12:16 99 07/08/21 12:01 99 07/08/21 11:46 100 07/08/21 11:31 100 07/08/21 11:13 100 07/08/21 10:58 95 Intake and Output 07/08/21 07/09/21 07/09/21 22:59 06:59 14:59 Intake Total 120 240 Output Total 300 Balance 120 -300 240 Intake: Oral 120 240 Output: Urine 300 Other: Voiding Method Toilet Toilet Toilet Urinal Urinal Urinal Results CBC & Chem 7: 07/08/21 06:25 07/09/21 07:07 Labs: Abnormal Lab Results - Last 24 Hours (Table) 07/09/21 Range/Units 07:07 Sodium 136 L (137-145) mmol/L Chloride 109 H (98-107) mmol/L Creatinine 0.56 L (0.66-1.25) mg/dL Glucose 106 H (74-99) mg/dL Calcium 8.2 L (8.4-10.2) mg/dL
[2021-07-09] MEDS ORDERED: GABAPENTIN 300 MG CAP PO SCH (16:00)
[2021-07-09] MEDS ORDERED: HYDROcodone/APAP 5-325MG 1 EACH TAB PO SCH (16:00)
[2021-07-10] MEDS ORDERED: SYMBICORT 160-4.5 MCG INHALER INHALATION SCH (08:00)
[2021-07-10] MEDS ORDERED: ATORVASTATIN 80 MG TAB PO SCH (09:00)
--- NOTE | 2021-07-28 11:47 | P.DS ---
Providers Date of admission: 07/08/21 06:02 Attending physician: Ck Ackerman DO Consults: 07/08/21 05:52 Consult to Anesthesia Routine Consulting Provider: Anesthesia,Services Consult Reason/Comments: General anesthesia for Aortic Stent procedure 07/08/21 10:58 Consult Physician Routine Consulting Provider: Carina Ravi Consult Reason/Comments: medical management Do you want consulting provider notified?: Yes Primary care physician: [facility] [place] Course: Patient was admitted to the hospital with the intent of elective repair of infrarenal abdominal aortic aneurysm. He was evaluated by the department of anesthesiology and deemed a suitable anesthetic risk. On the date of admission is taken the special procedure suite where a stent graft repair of infrarenal abdominal aortic aneurysm was performed without incident. The first postoperative night was uneventful and the following day the patient was dismissed from the hospital. Plan - Discharge Summary Discharge Rx Participant: No New Discharge Prescriptions: New Nicotine 21Mg/24Hr Patch [Habitrol] 1 each TRANSDERM DAILY #14 patch No Action Loperamide [Imodium] 6 mg PO QAM PRN PRN Reason: Diarrhea Gabapentin 300 mg PO TID HYDROcodone/APAP 5-325MG [Phillips 5-325] 1 tab PO TID Calcium Carbonate [Calcium] 600 mg PO DAILY Aspirin [Adult Low Dose Aspirin EC] 81 mg PO DAILY Albuterol Sulfate [Proair Digihaler] 1 puff INHALATION Q6HR PRN PRN Reason: Shortness Of Breath Fluticasone/Salmeterol [Fluticasone-Salmeterol 232-14] 1 puff INHALATION DAILY diphenhydrAMINE [Benadryl] 50 mg PO HS PRN PRN Reason: Insomnia Atorvastatin [Lipitor] 80 mg PO DAILY Discharge Medication List Loperamide [Imodium] 6 mg PO QAM PRN 02/09/15 [History] Albuterol Sulfate [Proair Digihaler] 1 puff INHALATION Q6HR PRN 12/09/20 [History] Aspirin [Adult Low Dose Aspirin EC] 81 mg PO DAILY 12/09/20 [History] Calcium Carbonate [Calcium] 600 mg PO DAILY 12/09/20 [History] Gabapentin 300 mg PO TID 12/09/20 [History] Fluticasone/Salmeterol [Fluticasone-Salmeterol 232-14] 1 puff INHALATION DAILY 03/11/21 [History] diphenhydrAMINE [Benadryl] 50 mg PO HS PRN 03/11/21 [History] Atorvastatin [Lipitor] 80 mg PO DAILY 07/06/21 [History] HYDROcodone/APAP 5-325MG [Phillips 5-325] 1 tab PO TID 07/06/21 [History] Nicotine 21Mg/24Hr Patch [Habitrol] 1 each TRANSDERM DAILY #14 patch 07/09/21 [Rx] Follow up Appointment(s)/Referral(s): Ck Ackerman DO [Doctor of Osteopathic Medicine] - 1 Week (Please call office Sunday to schedule an appointment within the next week. ) Patient Instructions/Handouts: Esophageal Cancer (DC) Activity/Diet/Wound Care/Special Instructions: #1: Ambulate ad rosemary. #2: May shower over her wounds starting today. #3: Please voided in all tobacco products. #4: I would like to see her in the office in one week. #5: Please continue all your home medications and diet. Discharge Disposition: HOME SELF-CARE
== END 2021-07-09 13:04 | disposition home or self-care (01) | DRG 269 ==
LOC: 2ORMAIN 06:02 → 3SCARD 11:37
PROVIDERS: ADMIT Surgery; ATTEND Surgery
PROC: 04V03DZ Restriction of Abdominal Aorta with Intraluminal Device, Percutaneous Approach (ICD-10-PCS; principal; 2021-07-08 07:30)
DX: I71.4 Abdominal aortic aneurysm, without rupture (principal); E78.5 Hyperlipidemia, unspecified; F17.210 Nicotine dependence, cigarettes, uncomplicated; J44.9 Chronic obstructive pulmonary disease, unspecified; N40.0 Benign prostatic hyperplasia without lower urinary tract symptoms; Z79.82 Long term (current) use of aspirin; Z79.899 Other long term (current) drug therapy; Z85.01 Personal history of malignant neoplasm of esophagus; Z85.21 Personal history of malignant neoplasm of larynx; Z85.46 Personal history of malignant neoplasm of prostate; Z85.819 Personal history of malignant neoplasm of unspecified site of lip, oral cavity, and pharynx; Z85.828 Personal history of other malignant neoplasm of skin; Z79.51 Long term (current) use of inhaled steroids
CPT/HCPCS: 34705; 80048; 85025; 86850; 86900; 86901

== ENCOUNTER 2021-07-22 11:08 | Day surgery (SDC) | payer BC, MEDICARE ==
[2021-07-21 09:05] VITALS: BMI 22.3
[2021-07-22] MEDS: LACTATED RINGERS 1,000 ML IV SCH ×2 (12:10→12:47)
[2021-07-22] MEDS ORDERED: LIDOCAINE 1% (10MG/ML) FOR IV START INTRADERMA ONE (12:10)
[2021-07-22 12:18] VITALS: RESP 16; TEMP 98.5
[2021-07-22] MEDS ORDERED: LIDOCAINE 1% INJ 10MG/ML (20 ML MDV) ONE (13:08)
[2021-07-22] MEDS ORDERED: PROPOFOL 10 MG/ML 20 ML VIAL IV ONE (13:08)
--- NOTE | 2021-07-22 13:23 | P.PCN ---
Date of Procedure: 07/22/21 Procedure(s) Performed: BRIEF HISTORY: Patient is a 70-year-old, pleasant, white male scheduled for an upper endoscopy as a part of follow-up of follow-up of esophageal invasive carcinoma diagnosed in December 2020. He subsequently completed radiation and chemotherapy in the April of this year. He scheduled for an follow-up upper endoscopy today.. Is complaining of intermittent dysphagia to solids. PROCEDURE PERFORMED: Esophagogastroduodenoscopy with biopsy. PREOPERATIVE DIAGNOSIS: Follow-up distal esophageal adenocarcinoma diagnosed in December 2020. IV sedation per anesthesia. PROCEDURE: After informed consent was obtained, the patient was brought into the endoscopy unit. IV sedation was administered by Anesthesia under continuous monitoring. Initially the Olympus GIF-140 video endoscope was inserted into the mouth. Esophagus intubated without any difficulty. It was gradually advanced into the stomach and duodenum and carefully examined. The bulb and the second part of the duodenum appeared normal. The scope at this time was withdrawn to the stomach, adequately insufflated with air, and upon careful examination, mucosa of the antrum, body, cardia and the fundus appeared normal. The scope was then withdrawn into the esophagus. The GE junction was located at 41 cm from the incisors. There was no obvious mass identified. However the mucosal folds in the distal esophagus appeared slightly thickened and multiple biopsies were done from this area. There was no obvious esophageal stricture identified however there was some hesitancy to the passage of the scope into the stomach at the GE junction. Multiple biopsies were done from the distal esophagus and GE junction. The rest of the esophagus appeared normal. There were no erosions or ulcerations seen and the patient tolerated the procedure well. IMPRESSION: 1. Slightly thickened folds at the GE junction and distal esophagus with no obvious masses identified. Status post multiple biopsies to rule out neoplasm. RECOMMENDATIONS: The findings of this examination were discussed with the patient as well as his family. He was advised to follow with the biopsy results. He will follow with Dr. Salgado as scheduled..
[2021-07-22 14:28] VITALS: BP 106/65; PULSE 70
== END 2021-07-22 14:20 | disposition home or self-care (01) ==
LOC: ORWHC2ENDO 11:08
PROVIDERS: ATTEND Internal Medicine Gastroenterology
DX: K20.0 Eosinophilic esophagitis (principal); C15.9 Malignant neoplasm of esophagus, unspecified; J44.9 Chronic obstructive pulmonary disease, unspecified; F17.200 Nicotine dependence, unspecified, uncomplicated; Z92.3 Personal history of irradiation; Z92.21 Personal history of antineoplastic chemotherapy; Z79.899 Other long term (current) drug therapy; Z88.8 Allergy status to other drugs, medicaments and biological substances
CPT/HCPCS: 88305; 88312; 43239; J2001; J2704

== ENCOUNTER → 2021-09-30 | Outpatient (CLI) | payer BC, MEDICARE ==
--- NOTE | 2021-10-04 20:48 | PE ---
EXAMINATION TYPE: PET CT fusion skull to thigh DATE OF EXAM: 09/30/2021 CLINICAL HISTORY: 70-year-old male C1 5.5, restaging for esophageal cancer. Chemoradiation therapy co mpleted April 2021. TECHNIQUE: Following the intravenous administration of 11.4 mCi of F-18 FDG, whole body images are performed from the skull base to the midthigh. Images are reviewed on the computer in the coronal, a xial, and sagittal planes. Reconstructed rotating images are created on independent workstation and reviewed on the computer. A localization and attenuation correction CT is performed in conjunction with the PET scan. Glucose level: 95 mg/dL. Injection site: Right AC COMPARISON: 05/20/2021 FINDINGS: PET: There is new moderate uptake in the region of the left maxillary first premolar seems to correspond t o a new empty socket or prominent periodontal disease. Correlate for any interval tooth extraction. O therwise, physiologic FDG uptake within the neck. Trace FDG associated with mild bilateral gynecomastia is similar. There is new focal mild uptake associated with a 6 mm nodule along the central right upper lobe bronc hovascular bundles showing mild focal uptake, refer to axial image 81. Max SUV 1.8. Left T9 posterior elements with mild focal uptake is new and suspicious, max SUV 1.9. Occult on CT. Left-sided fifth anterior rib end now shows some subtle sclerosis and only trace residual FDG uptake, decreased from prior, suspected site of healed fracture. Otherwise, physiologic FDG uptake within the chest. Average liver SUV 1.6. Variable mild to moderate bowel uptake likely physiologic. Some scattered excreting FDG from the kidn eys also seen in the distal ureters. There is intense abnormal hypermetabolism involving the superior and posterior right acetabulum which is new, max SUV 5.6. Some associated subtle soft tissue replacement in the marrow space here on CT b ut otherwise largely occult on CT. ATTENUATION CORRECTION CT: As stated above, query interval extraction of the left maxillary first premolar. No cervical lymphade nopathy. Retropharyngeal course right ICA. Right anterior chest wall injection port. Catheter tip lower SVC. Heart normal size. Trace anterior p ericardial effusion is similar. Scattered mild coronary artery calcifications. Aneurysmal ascending a kimberly 4.3 cm with conventional vessel branching anatomy. Mildly aneurysmal upper descending thoracic a kimberly 3.8 cm as well as lower descending thoracic aorta at 3.8 cm as well. Couple borderline sized 1 cm mediastinal lymph nodes remain unchanged, particularly in the precarinal space. COPD with moderate emphysema. Dependent atelectasis. No consolidation or pleural effusion. No mesenteric or retroperitoneal lymphadenopathy. No dilated small bowel, free fluid, free air. Mild stool burden. No pericolonic inflammatory change. Interval endovascular stent graft repair of the patient's AAA. Diomede sac caliber of 5.3 cm versus 5. 9 cm, previously. Bladder is urine distended. Prostate gland is small or surgically absent. No abnormal fluid collectio n the pelvis or pelvic lymphadenopathy. Bones: No obvious osseous destructive process. The bony findings mentioned above, especially in the r ight acetabulum and T9 vertebral body are not well demonstrated on CT. L1 superior endplate deformity is unchanged. IMPRESSION: 1. Findings highly suggestive of new osseous metastatic disease. A small focus involving the left T9 posterior elements and a much larger area of osseous involvement of the right posterior and superior acetabulum, both largely occult on CT. 2. A new 6 mm mildly hypermetabolic nodule centrally in the right upper lobe is equivocal. Reactive b ronchial lymph node and early solitary metastatic pulmonary nodule are both possible. Also, given the background of COPD, ongoing follow-up to exclude the possibility of a synchronous lung primary. 3. The previous uptake involving the left fifth anterior rib end now shows some sclerosis and only tr britton residual FDG uptake, suspected site of healed rib fracture. 4. Query interval extraction of the patient's left maxillary first premolar and associated postproced ural FDG uptake here versus uptake related to periodontal disease. 5. Incidental: Interval endovascular stent graft repair of the patient's AAA. Diomede sac caliber 5.3 cm versus 5.9 cm, previously. Additional aneurysmal thoracic aorta with the ascending measuring up to 4.3 cm and descending measuring up to 3.8 cm.
== END | disposition home or self-care (01) ==
LOC: RADXRMAIN 09:46
PROVIDERS: ATTEND Internal Medicine Hematology & Oncology
DX: C15.5 Malignant neoplasm of lower third of esophagus (principal)
CPT/HCPCS: 78815; A9552

== ENCOUNTER → 2021-10-06 | Outpatient (CLI) | payer BC ==
--- NOTE | 2021-10-07 03:09 | MR ---
EXAMINATION TYPE: MR pelvis wo/w con DATE OF EXAM: 10/06/2021 COMPARISON: HISTORY: History of prostate cancer and prostate removed 2003. Low back pain and right hip pain CONTRAST: Standard multiplanar, multisequence MRI departmental protocol images were obtained without contrast a nd with 7 mL intravenous Gadavist gadolinium contrast. The proximal femurs appear intact. No sign of avascular necrosis. There is abnormal decreased signal on the T1 images in the right acetabulum that measures 3.5 cm. This has increased fluid signal on the proton density images and shows some minimal enhancement. The sacroiliac joints are intact. There is no free fluid in the pelvis. Bladder distends smoothly. No pelvic mass. There is also abnorm al small areas of decreased signal in the posterior aspect of the right acetabulum measuring up to 12 mm. There is visualization of the lower abdominal aorta which shows aneurysm and endovascular stent. Aneurysm measures 5 cm. No sign of pelvic lymphadenopathy. There is 1 cm focus of enhancement in the right iliac bone adjacent to the sacroiliac joint. IMPRESSION: Lesions demonstrated in the right acetabulum superiorly and posteriorly as well as the right iliac romel ne are consistent with metastatic disease in this patient with a history of prostate cancer. No fract ure seen.
== END | disposition home or self-care (01) ==
LOC: RADMRIMAIN 15:10
PROVIDERS: ATTEND Internal Medicine Hematology & Oncology
DX: C61 Malignant neoplasm of prostate (principal)
CPT/HCPCS: 72197; A9585

== ENCOUNTER → 2022-02-10 | Outpatient (CLI) | payer BC, MEDICARE ==
--- NOTE | 2022-02-11 11:36 | PE ---
EXAMINATION TYPE: PET CT fusion skull to thigh DATE OF EXAM: 02/10/2022 CLINICAL INDICATION:Male, 71 years old with history of C15.5 Esophagus Cancer; TECHNIQUE: Following the intravenous administration of 10.71 mCi of F-18 FDG, whole body images are performed from the skull base to the midthigh. Images are reviewed on the computer in the coronal, axial, and sagittal planes. Reconstructed rotating images are created on independent workstation and reviewed on the computer. A non-contrast CT is performed in conjunction with the PET scan. Glucose level 108 mg/dL COMPARISON: CT 06/10/2021, 01/07/2021, PET/CT 09/30/2021, FINDINGS: Mediastinal SUV mean is 0.8. Hepatic parenchyma SUV mean is 1.6. SKULL BASE AND NECK: No suspicious FDG activity. CHEST, MEDIASTINUM, AND HILAR REGION: Mild distal esophageal FDG activity with max SUV 2.3 not signif icantly different than prior Right pulmonary upper lobe focus of increased FDG activity max SUV 2.2, previously 1.8. ABDOMEN AND PELVIS: No suspicious FDG activity. OSSEOUS STRUCTURES: Scattered sclerotic foci are seen throughout the pelvis, proximal left humeral he ad, and spine with decrease in FDG activity when comparing to prior. Examples include posterior aceta bulum max SUV 1.1, previously 5.6 and in the vertebral body at T11 max SUV 1.0, previously 1.9. Also decrease in the left T9 posterior elements with comparing to prior. Left anterior rib fracture with mild FDG activity max SUV 1.9. OTHER CT: Atherosclerosis of the arterial vasculature. Right chest wall Apdejl-t-Eeeu with tip in the superior vena cava. The ascending thoracic aorta is mildly dilated measuring up to 14 mm. There is s evere centrilobular emphysema changes throughout the lungs. Aortic biiliac stent graft is in place. T here is scattered clonic diverticula present. IMPRESSION: 1. Minimal FDG activity of the/distal esophagus which could represent esophagitis. Attention on foll ow-up imaging in this is more superior to the area of primary. 2. Positive response to therapy with decrease in FDG activity within the osseous structures as seen on prior. 3. Right upper lobe focus of increased FDG activity near the bronchus has mildly increased from prio r. Follow-up surveillance with CT examinations is recommended. Could represent bronchitis versus janie y malignancy.
== END | disposition home or self-care (01) ==
LOC: RADPETMAIN 10:11
PROVIDERS: ATTEND Internal Medicine Hematology & Oncology
DX: C15.5 Malignant neoplasm of lower third of esophagus (principal)
CPT/HCPCS: 78815; A9552

== ENCOUNTER 2022-09-20 06:00 | Day surgery (SDC) | payer BC, MEDICARE ==
[2022-09-20] MEDS ORDERED: LIDOCAINE 1% (10MG/ML) FOR IV START INTRADERMA PRN (06:18)
[2022-09-20] MEDS ORDERED: LACTATED RINGERS 1,000 ML IV SCH (06:18)
[2022-09-20] MEDS ORDERED: LACTATED RINGERS 1,000 ML IV ONE (06:24)
[2022-09-20 06:34] VITALS: TEMP 97.5
[2022-09-20] MEDS ORDERED: PROPOFOL 10 MG/ML 20 ML VIAL IV ONE (07:00)
[2022-09-20] MEDS ORDERED: LIDOCAINE 2% INJ 20 MG/ML (2 ML VIAL) ONE (07:00)
--- NOTE | 2022-09-20 07:21 | P.PCN ---
Date of Procedure: 09/20/22 Procedure(s) Performed: BRIEF HISTORY: Patient is a 71-year-old pleasant white male scheduled for an elective colonoscopy as a part of screening for colon cancer. PROCEDURE PERFORMED: Colonoscopy with snare polypectomy. PREOPERATIVE DIAGNOSIS: Screening for colon cancer. IV sedation per Anesthesia. PROCEDURE: After informed consent was obtained, the patient, was brought into the endoscopy unit. IV sedation was administered by Anesthesia under continuous monitoring. Digital rectal examination was normal. Initially the Olympus CF-160 flexible video colonoscope was then inserted in the rectum, gradually advanced into the cecum without any difficulty. Careful examination was performed as the scope was gradually being withdrawn. Ileocecal valve and the appendiceal orifice were visualized and appeared normal. Prep was excellent. Mucosa of the cecum, ascending colon, appeared normal. In the transverse colon there was a 7 mm polyp that was removed by snare polypectomy. Rest of the transverse colon, descending colon, sigmoid colon, and rectum appeared normal. Scattered sigmoid diverticulosis. Retroflexion was performed in the rectum and no lesions were seen. The patient tolerated the procedure well. IMPRESSION: 7 mm sessile transverse colon polyp status post snare polypectomy Scattered sigmoid diverticulosis Rest of the colon appeared normal RECOMMENDATIONS: Findings of this examination were discussed with the patient as well as his family.. Is advised to follow with the biopsy results. If the biopsy can have a repeat colonoscopy in 5 years
[2022-09-20 07:28] VITALS: RESP 16
[2022-09-20 07:59] VITALS: BP 130/74; PULSE 72
== END 2022-09-20 08:09 | disposition home or self-care (01) ==
LOC: ORWHC2ENDO 06:00
PROVIDERS: ATTEND Internal Medicine Gastroenterology
DX: Z12.11 Encounter for screening for malignant neoplasm of colon (principal); D12.3 Benign neoplasm of transverse colon; K57.30 Diverticulosis of large intestine without perforation or abscess without bleeding; I71.40 Abdominal aortic aneurysm, without rupture, unspecified; E78.5 Hyperlipidemia, unspecified; J44.9 Chronic obstructive pulmonary disease, unspecified; F17.210 Nicotine dependence, cigarettes, uncomplicated; Z85.21 Personal history of malignant neoplasm of larynx; Z85.46 Personal history of malignant neoplasm of prostate; Z85.01 Personal history of malignant neoplasm of esophagus; Z92.21 Personal history of antineoplastic chemotherapy; Z92.3 Personal history of irradiation; Z79.51 Long term (current) use of inhaled steroids; Z79.82 Long term (current) use of aspirin; Z79.899 Other long term (current) drug therapy; Z90.49 Acquired absence of other specified parts of digestive tract; Z88.8 Allergy status to other drugs, medicaments and biological substances
CPT/HCPCS: 88305; 45385; J2704; J2001

== ENCOUNTER → 2022-11-03 | Outpatient (CLI) | payer BC ==
--- NOTE | 2022-11-04 12:36 | PE ---
EXAMINATION TYPE: PET CT fusion skull to thigh DATE OF EXAM: 11/03/2022 CLINICAL INDICATION:Male, 71 years old with history of C15.5; TECHNIQUE: Following the intravenous administration of 11.92 mCi of F-18 FDG, whole body images are performed from the skull base to the midthigh. Images are reviewed on the computer in the coronal, axial, and sagittal planes. Reconstructed rotating images are created on independent workstation and reviewed on the computer. A non-contrast CT is performed in conjunction with the PET scan. Glucose level 115 mg/dL COMPARISON: CT 08/23/2022., PET/CT most recent 05/26/2022 FINDINGS: Mediastinal SUV mean is 1.34. Hepatic parenchyma SUV mean is 1.97. SKULL BASE AND NECK: No suspicious radiotracer activity. CHEST, MEDIASTINUM, AND HILAR REGION: * Mild FDG activity around the right upper lobe superior lobe posterior bronchus maximum SUV 3.4, pr eviously 1.6 , 2.2, and 1.8. * No abnormal FDG activity within the esophagus more within the visualized thorax. ABDOMEN AND PELVIS: No suspicious radiotracer activity. OSSEOUS STRUCTURES: No suspicious radiotracer activity on today's exam areas of sclerosis are at [place] kground levels. OTHER CT: Right chest Znfoix-k-Dxdk tip terminating in the superior vena cava. Mild gynecomastia peralta ges bilaterally. Mild atherosclerosis of the arterial vasculature and coronary arteries. Inferior aor ta aortobiiliac stent graft is present. Few scattered colonic diverticula present. Ascending thoracic aorta is ectatic 4.3 cm in transverse dimension. IMPRESSION: 1. No suspicious FDG activity within the esophagus. 2. Interval increase in right upper lobe focus of FDG activity remains indeterminate. There appears t o be a opacified bronchus similar to prior on series 3 image 81. This is thought to involve the right upper lobe posterior segment bronchus near its origin consider bronchoscopy throughout underlying ma ss.
== END | disposition home or self-care (01) ==
LOC: RADPETMAIN 12:46
PROVIDERS: ATTEND Internal Medicine Hematology & Oncology
DX: C15.5 Malignant neoplasm of lower third of esophagus (principal)
CPT/HCPCS: 78815; A9552

== ENCOUNTER → 2023-04-04 | Outpatient (CLI) | payer BC ==
[2023-04-04 19:31] LABS: ALT 11 U/L (10-49); AST 19 U/L (14-35); Chol/HDL Ratio 3.26 Ratio
== END | disposition home or self-care (01) ==
LOC: LABWHC1 14:08
PROVIDERS: ATTEND Internal Medicine Cardiovascular Disease
DX: E78.2 Mixed hyperlipidemia (principal)
CPT/HCPCS: 36415; 80061; 84450; 84460

== ENCOUNTER → 2023-05-04 | Outpatient (CLI) | payer BC ==
--- NOTE | 2023-05-06 10:23 | PE ---
EXAMINATION TYPE: PET CT fusion skull to thigh DATE OF EXAM: 05/04/2023 CLINICAL INDICATION:Male, 72 years old with history of C15.5 Esophageal CA; TECHNIQUE: Following the intravenous administration of 12.49 mCi of F-18 FDG, whole body images are performed from the skull base to the midthigh. Images are reviewed on the computer in the coronal, axial, and sagittal planes. Reconstructed rotating images are created on independent workstation and reviewed on the computer. A non-contrast CT is performed in conjunction with the PET scan. Glucose level 68 mg/dL CT DLP: 438 mGycm, Automated exposure control for dose reduction was used. COMPARISON: CT None, PET/CT 11/03/2022 and dating back to 03/11/2021 FINDINGS: Mediastinal SUV mean is 1.9. Hepatic parenchyma SUV mean is 2.1. SKULL BASE AND NECK: No suspicious radiotracer activity. CHEST, MEDIASTINUM, AND HILAR REGION: * Right perihilar FDG activity max SUV 14.5, previously 2.2 that extends along the large airway seri es 3 image 97 . There may be postobstructive secretions within the upper lung airways. * Small pulmonary nodule in the right medial lower lung next to an osteophyte max SUV 2.4, likely ph ysiologic. * No abnormal uptake within the esophagus. ABDOMEN AND PELVIS: No suspicious radiotracer activity. MUSCULOSKELETAL STRUCTURES: * No suspicious radiotracer activity. * Physiologic uptake within the rotator cuff muscles max SUV 6.5. * Left superior acetabular uptake max SUV 18.7, previously 1.[address] correlate. * Other areas of sclerosis throughout the osseous structures including the right acetabulum with ext ensive sclerosis does not demonstrate abnormal uptake. Other sclerotic lesions throughout the spine a lso do not demonstrate uptake. OTHER CT: Right chest wall Gbuisy-l-Gkal tip terminating superior vena cava. Mild gynecomastia. Aorto biiliac stent graft is present. There is severe emphysema changes throughout the lungs. IMPRESSION: 1. Bronchial wall thickening with FDG activity concerning for malignancy/progression of disease. Not seen on immediate prior 10/26/2022. Small amount uptake was seen here on 02/10/2022 and 05/26/2022. Con aircraft refueller bronchoscopy with attention to the right upper lung airways 2. Focus of intense uptake along the superior left acetabulum concerning for active neoplasm. 3. Scattered sclerotic areas are seen throughout the osseous structures which are stable from 022. Findings most compatible with posttreatment changes.
== END | disposition home or self-care (01) ==
LOC: RADPETMAIN 15:30
PROVIDERS: ATTEND Internal Medicine Hematology & Oncology
DX: C15.5 Malignant neoplasm of lower third of esophagus (principal); Z85.01 Personal history of malignant neoplasm of esophagus
CPT/HCPCS: 78815; A9552

== ENCOUNTER → 2023-06-29 | Outpatient (CLI) | payer BC ==
--- NOTE | 2023-07-06 11:31 | MR ---
EXAMINATION TYPE: MR hip LT wo/w con DATE OF EXAM: 07/02/2023 COMPARISON: PET CT scan 05/04/2023, CT scan abdomen and pelvis 12/25/2018, and CT scan 11/03/2022, PET C T scan 05/26/2022, 09/30/2021, CT scan 12/25/2018, 08/30/2016 HISTORY: Left hip pain, Hx Lung and prostate cancer, CONTRAST: Standard multiplanar, multisequence MRI departmental protocol images were obtained without contrast a nd with 8 mL intravenous Gadavist gadolinium contrast. FINDINGS: The area of concern involving the anterior column\superior left acetabulum and a straight abnormal ma rrow signal characteristics. There is enhancement postcontrast lesion is felt compatible (. Multiple areas of sclerosis noted on the most recent CT scan demonstrate demonstrate concordant abnor mal signal pattern but demonstrate no definite enhancement. These foci are stable from the most recen t PET scan. However, are not seen on more distant CT scans dating back to 2016, 2018, or 2020. Althou gh small sclerotic metastatic foci are not excluded, these likely represent post therapeutic changes There is an additional area of abnormal signal involving the roof of the right acetabulum measuring 3 cm. There is peripheral rim enhancement. A lesion is not seen by prior CT scan. Guy to be suspiciou s for metastases or treated metastases. No pathologic adenopathy within the pelvis. The bladder distends normally. Changes of diverticulosis. No soft tissue mass is seen. Heterogeneous marrow within the lumbar spine likely related to marrow co nversion and discogenic marrow changes. There is multilevel severe degenerative disc disease of the v isualized lower lumbar spine. IMPRESSION: 1. Findings involving the anterior column\superior left acetabulum are concordant with recent PET/CT findings and compatible with metastases. 2. Lesion involving the right superior and posterior acetabulum was not present on numerous prior CT exams but appears stable from recent PET scan. There is peripheral rim enhancement. A treated metasta ses would be in the differential diagnosis. 3. Stable numerous areas of abnormal signal throughout the visualized osseous structures which are sc lerotic on prior CT scans. Favor these represent post therapeutic changes.
== END | disposition home or self-care (01) ==
LOC: RADMRIMAIN 16:26
PROVIDERS: ATTEND Radiology Radiation Oncology
DX: C34.11 Malignant neoplasm of upper lobe, right bronchus or lung (principal); C15.5 Malignant neoplasm of lower third of esophagus; Z92.21 Personal history of antineoplastic chemotherapy; Z85.828 Personal history of other malignant neoplasm of skin; Z85.46 Personal history of malignant neoplasm of prostate
CPT/HCPCS: 73723; A9585

== ENCOUNTER → 2023-10-01 | Outpatient (CLI) | payer BC ==
[2023-10-01 12:18] LABS: African American GFR (CKD) >90 (>60 ml/min/1.73 sqM); Blood Urea Nitrogen 22 mg/dL (9-20); Non-African American GFR(CKD) >90 (>60 ml/min/1.73 sqM)
--- NOTE | 2023-10-01 20:37 | CT ---
EXAMINATION TYPE: CT chest w con DATE OF EXAM: 10/01/2023 COMPARISON: 05/31/2023 HISTORY: 72-year-old C61, C34.11 f/u lung ca TECHNIQUE: Contiguous axial scanning of the chest after the administration of 100 mL of Isovue 300. Coronal/sagittal reconstructions performed. CT DLP: 307.6mGycm. Automatic exposure control utilized for a dose reduction. FINDINGS: Right anterior chest wall injection port with catheter tip at the mid SVC. Heart normal size without pericardial effusion. Mild aneurysm ascending aorta 4.1 cm is unchanged. Mild atherosclerotic plaque throughout the thoraci c aorta with conventional arch vessel branching anatomy. Borderline ectatic upper descending thoracic aorta 3.1 cm. Mildly dilated main right and left pulmonary arteries up to 2.6 cm disease suggesting underlying pulm onary arterial hypertension. Mild bilateral gynecomastia. Unchanged 1 cm right hilar lymph node. No thoracic lymphadenopathy by CT size criteria. However, the previous endobronchial soft tissue right suprahilar region within the right upper lobe b ronchus shows improvement. Minimal residual soft tissue thickening remains here, axial image 27. However, there are 3 new areas of nodularity within the right upper lobe measuring 2.3 x 1.0 cm, axia l image 18; 1.2 cm axial image 28; and 1.3 cm axial image 30. A few additional smaller pulmonary nodules measuring up to 5 mm also noted at the midlung level not clearly seen previously, axial image 38 and 40. No pleural effusion. Moderately advanced centrilobular emphysema. Visualized upper abdomen with partially visualized abdominal aortic endovascular stent graft. Bones: Chronic superior endplate deformity of L1. No osseous destructive process. IMPRESSION: 1. Previous endobronchial soft tissue right upper lobe bronchus shows improvement. Minimal residual s oft tissue thickening remains here. 2. However, there are new areas of nodularity throughout the right lung, largest in the right upper l obe measuring up to 2.3 cm. Infectious foci and new areas of neoplastic disease are in the differenti al. Short interval follow-up advised. 3. Background COPD with moderate to advanced emphysema.
== END | disposition home or self-care (01) ==
LOC: RADCTMAIN 11:27
PROVIDERS: ATTEND Internal Medicine Hematology & Oncology
DX: C61 Malignant neoplasm of prostate (principal); C34.11 Malignant neoplasm of upper lobe, right bronchus or lung; C15.5 Malignant neoplasm of lower third of esophagus; D69.6 Thrombocytopenia, unspecified; J43.9 Emphysema, unspecified; J44.9 Chronic obstructive pulmonary disease, unspecified
CPT/HCPCS: 82565; 84520; 71260; 36415; Q9967

== ENCOUNTER → 2024-01-04 | Outpatient (CLI) | payer MEDICARE ==
--- NOTE | 2024-01-06 22:50 | PE ---
EXAMINATION TYPE: PET CT fusion skull to thigh DATE OF EXAM: 01/04/2024 COMPARISON: CT chest 10/01/2023 Prior PET/CT: 05/04/2023 HISTORY: Esophageal cancer TECHNIQUE: Following the intravenous administration of 9.59 mCi of F-18 FDG, whole body images are p erformed from the skull base to the midthigh. Images are reviewed on the computer in the coronal, ax ial, and sagittal planes. Reconstructed rotating images are created on independent workstation and r eviewed on the computer. A localization and attenuation correction CT is performed in conjunction w ith the PET scan. DLP: 448.46 mGycm SCAN: Subsequent Blood glucose: 128 mg/dL Average Mediastinum SUV: 2.34 Average Liver SUV: 2.88 FINDINGS: NECK: No abnormal uptake THORAX: There is uptake within a small nodule within the posterior right lung, image 70, SUV 3.07. Ri ght hilar uptake may be present, image 70, SUV 2.53. A right infrahilar nodule has mild uptake measur ing 2.5 SUV, image 23. There is peripheral uptake within the posterior medial right midlung. Image 96 , SUV 3. I. Some mild uptake may be within the mid esophagus which is nonspecific. Esophagitis early recurrence c ould be considered. Example images 81, SUV 2.47. Image 61, SUV 4.6 ABDOMEN: Mild heterogeneity within the liver. Although not diagnostic of early metastasis could be co nsidered PELVIS: No abnormal uptake OSSEOUS STRUCTURES: Increased uptake is in the superior acetabular region on the left. This is increa sed in size from the prior examination. SUV measures 8.53 and is compatible with worsening neoplasm. LOCALIZATION CT: A stented aortic aneurysm is evident. Right inguinal hernia. COMPARISON: Uptake within the acetabulum has increased in size over the interval. Uptake within the r ight lung nodules is diminished from comparison. Possible uptake within the esophagus may be new. IMPRESSION: 1. Increasing size and intensity of a left acetabular metastatic osseous lesion. 2. Improved right lung nodules with diminished uptake compared to prior examination. 3. Mild nonspecific uptake may be within the esophagus in the liver. Early metastasis is not excluded . Consider EGD for evaluation of the esophagus. Consider MRI with contrast for evaluation of the live r. 4. Incidental note of right inguinal hernia without bowel involvement. [facility], , 01/06/2024 10:47 PM
== END | disposition home or self-care (01) ==
LOC: RADPETMAIN 14:18
PROVIDERS: ATTEND Internal Medicine Hematology & Oncology
DX: C15.5 Malignant neoplasm of lower third of esophagus
CPT/HCPCS: 78815

== ENCOUNTER 2024-02-02 17:53 | Emergency (ER) | payer MEDICARE ==
[2024-02-02 18:04] VITALS: RESP 18; TEMP 98.6
--- NOTE | 2024-02-02 18:12 | ED ---
Fall HPI - General Chief Complaint: Fall Stated Complaint: fall, head/back pain Time Seen by Provider: 02/02/24 17:54 Source: patient, EMS, RN notes reviewed Mode of arrival: EMS Limitations: no limitations - History of Present Illness Initial Comments: This is a 73-year-old male who presents to the emergency department for a fall. Patient fell 3 days ago getting off of a semi truck. States that the step he slipped on was about 3 feet off of the ground. Denies hitting his head or any loss of consciousness. Currently complains of pain over the left side of his neck, left shoulder, and left hip. He has some pain over the right shoulder as well. States that the left hip is the most bothersome. Pain is only prominent when trying to move. He is still able to ambulate if he uses a walker, but states that it is painful. Not taking any blood thinners. His sister called EMS today when she noticed that he was not getting much better. Not currently taking anything for pain. He was given Toradol by EMS with improvement in symptoms. MD Complaint: fall - Related Data Home Medications Medication Instructions Recorded Confirmed Loperamide [Imodium] 6 mg PO QAM PRN 02/09/15 05/31/23 Albuterol Sulfate [Proair 1 puff INHALATION Q6HR PRN 12/09/20 05/31/23 Digihaler] Aspirin [Adult Low Dose Aspirin EC] 81 mg PO DAILY 12/09/20 05/31/23 Calcium Carbonate [Calcium] 600 mg PO DAILY 12/09/20 05/31/23 Gabapentin 400 mg PO TID 12/09/20 05/31/23 Fluticasone Propion/Salmeterol 1 puff INHALATION BID 03/11/21 05/31/23 [Fluticasone-Salmeterol 232-14] diphenhydrAMINE [Benadryl] 50 mg PO HS PRN 03/11/21 05/31/23 Atorvastatin [Lipitor] 80 mg PO DAILY 07/06/21 05/31/23 Isosorbide Mononitrate [Isosorbide 30 mg PO DAILY 09/18/22 05/31/23 Mononitrate ER] Vitamin D3(Unknown Dose) 1 tab PO DAILY 09/18/22 05/31/23 Previous Rx's Medication Instructions Recorded Ketorolac [Toradol] 10 mg PO Q6HR PRN #15 tab 02/02/24 methocarbamoL [Robaxin-750] 1,500 mg PO TID PRN #30 tab 02/02/24 Allergies Allergy/AdvReac Type Severity Reaction Status Date / Time pregabalin [From Lyrica] Allergy "spaced Verified 05/31/23 13:56 out and off balance" Review of Systems ROS Statement: Those systems with pertinent positive or pertinent negative responses have been documented in the HPI. ROS Other: All systems not noted in ROS Statement are negative. 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 pt states he has been coughing up some blood and has spot on his lung per PET scan. History of Any Multi-Drug Resistant Organisms: None Reported Past Surgical History: Appendectomy, Orthopedic Surgery, Prostate Surgery Additional Past Surgical History / Comment(s): rt shoulder surgery, oral cancer surgery, left cataract, prostatectomy, aortic stent in abdomen Past Anesthesia/Blood Transfusion Reactions: No Reported Reaction Past Psychological History: No Psychological Hx Reported Smoking Status: Current every day smoker - Past Family History Sister(s) Family Medical History: Deep Vein Thrombosis (DVT) Mother Family Medical History: Cancer Additional Family Medical History / Comment(s): Breast cancer. General Exam Limitations: no limitations General appearance: alert, in no apparent distress Head exam: Present: atraumatic, normocephalic, normal inspection Eye exam: Present: normal appearance, PERRL, EOMI. Absent: scleral icterus, conjunctival injection, periorbital swelling Neck exam: Present: normal inspection, full ROM. Absent: tenderness, meningismus, lymphadenopathy Respiratory exam: Present: normal lung sounds bilaterally. Absent: respiratory distress, wheezes, rales, rhonchi, stridor Cardiovascular Exam: Present: regular rate, normal rhythm, normal heart sounds. Absent: systolic murmur, diastolic murmur, rubs, gallop, clicks Extremities exam: Present: other (Tenderness to palpation of the bilateral shoulders. Full range of motion. 2+ radial pulses bilaterally. Tenderness to palpation over the left hip. Range of motion limited by pain. No shortening or rotation. 2+ DP and PT pulses) Neurological exam: Present: alert, oriented X3, CN II-XII intact Psychiatric exam: Present: normal affect, normal mood Skin exam: Present: warm, dry, intact, normal color. Absent: rash Course Vital Signs 02/02/24 02/02/24 17:56 20:00 Temperature 98.6 F Pulse Rate 84 86 Respiratory 18 18 Rate Blood Pressure 116/70 119/76 O2 Sat by Pulse 97 99 Oximetry Medical Decision Making - Medical Decision Making This is a 73 year old male who presents to the emergency department for a fall. Was pt. sent in by a medical professional or institution? @ -No Did you speak to anyone other than the patient for history? @ -No Did you review nursing and triage notes? @ -Yes, and I agree, it is accurate with regards to the patient's symptoms. Were old charts reviewed? @ -No Differential Diagnosis? @ -Differential Musculoskeletal: Muscular strain, contusion, ligament sprain, fracture, arthritis, septic arthritis, bursitis, cellulitis, muscle spasm, nerve compression, DVT, arterial occlusion, herpes zoster, electrolyte abnormality, tumor.... This is not meant to be in all inclusive list EKG interpreted by me (3pts min.)? @ -Not obtained X-rays interpreted by me (1pt min.)? @ -X-ray of the left hip and AP pelvis and bilateral shoulders obtained. My interpretation of all images identifies no acute fractures. CT interpreted by me (1pt min.)? @ -Computed tomography scan of the brain and c-spine obtained. My interpretation identifies no evidence of an acute intracranial hemorrhage, skull fracture, or cervical spine fracture. CT scan of the pelvis obtained. My interpretation identifies no acute fractures. U/S interpreted by me (1pt. min.)? @ -Not obtained What testing was considered but not performed? (CT, X-rays, U/S, labs)? Why? @ -None What meds were considered but not given? Why? @ -None Did you discuss the management of the patient with other professionals? @ -No Did you reconcile home meds? @ -No Was smoking cessation discussed for >3mins.? @ -I discussed smoking cessation for greater than 3 minutes. The risk of smoking were discussed with the patient including but not limited to risks of cancer, stroke, coronary artery disease and COPD. Also discussed with patient were multiple methods of quitting smoking. Lastly we discussed the financial cost of smoking. Was critical care preformed (if so, how long)? @ -No Were there social determinants of health that impacted care today? How? (Homelessness, low income, unemployed, alcoholism, drug addiction, transpor tation, low edu. Level, literacy, decrease access to med. care, fpc, rehab)? @ -No Was there de-escalation of care discussed even if they declined? (Discuss DNR or withdrawal of care, Hospice)? @ -No What co-morbidities impacted this encounter? (DM, HTN, Smoking, COPD, CAD, Cancer, CVA, Hep., AIDS, mental health diagnosis, sleep apnea, morbid obesity)? @ -Smoking, osteoarthritis Was patient admitted / discharged? @ -Discharged. Computed tomography scan of the brain/c-spine obtained revealing no acute intracranial process or cervical spine fracture. CT scan of the pelvis obtained revealing no acute fractures. X-ray of the left hip and AP pelvis and x-ray of the bilateral shoulders obtained as well. All imaging revealed no acute fractures. The CT scan of the pelvis incidentally noted findings suggestive of colitis. Patient denies any GI symptoms. Toradol and Robaxin prescribed for pain control. Patient was able to get up and ambulate in the emergency department and was also able to get into his family's car without much assistance and was comfortable with discharge home. Advised follow-up with his primary care provider. Patient discharged home in stable condition. Case discussed with ED attending Dr. Stanley. Return precautions reviewed in depth, the patient is instructed to return to the emergency department with any new, worsening, or concerning symptoms. Patient verbalized understanding. Undiagnosed new problem with uncertain prognosis? @ -None Drug Therapy requiring intensive monitoring for toxicity (Heparin, Nitro, Insulin, Cardizem)? @ -None Were any procedures done? @ -None Diagnosis/symptom? @ -Fall, left hip pain, bilateral shoulder pain Acute, or Chronic, or Acute on Chronic? @ -Acute Uncomplicated (without systemic symptoms) or Complicated (systemic symptoms)? @ -Uncomplicated Side effects of treatment? @ -None Exacerbation, Progression, or Severe Exacerbation] @ -Not applicable Poses a threat to life or bodily function? @ -No - Radiology Data Radiology results: report reviewed, image reviewed Disposition Clinical Impression: Fall, Left hip pain, Shoulder pain, Nicotine dependence Disposition: HOME SELF-CARE Condition: Fair Instructions (If sedation given, give patient instructions): Fall Prevention for Older Adults (ED), Hip Pain (ED) Additional Instructions: Return to the emergency department with any new, worsening, or concerning symptoms. Take the Toradol with Tylenol as needed for pain relief. If you choose to take the Toradol, do not take any other anti-inflammatories such as ibuprofen, take one or the other. Take the Robaxin as 1 to 2 tablets up to 3-4 times daily. Follow up with your primary care provider in 1-2 days. Prescriptions: methocarbamoL [Robaxin-750] 1,500 mg PO TID PRN #30 tab PRN Reason: Pain Ketorolac [Toradol] 10 mg PO Q6HR PRN #15 tab PRN Reason: Pain Is patient prescribed a controlled substance at d/c from ED?: No Referrals: Stanton Ontiveros DO [Primary Care Provider] - 1-2 days Time of Disposition: 19:49
--- NOTE | 2024-02-02 19:02 | CT ---
EXAMINATION TYPE: CT brain melissa painting DATE OF EXAM: 02/02/2024 COMPARISON: CT chest 10/01/2023 HISTORY: 73-year-old male pain after fall. Patient reports 3 days ago falling from the step of his tr uck approximately 3 ft off the ground. Patient denies hitting head, loss of consciousness, being dizz y or lightheaded prior to falling. Patient complaining of pain in head, neck, back, right arm, left h ip. CT DLP: 1392.5 mGycm Automated exposure control for dose reduction was used. Technique: Examination of the head was done in axial plane without intravenous contrast. Coronal and sagittal reconstructions performed. CT of the cervical spine was obtained in axial plane without intravenous injection of contrast mater ial. Coronal and sagittal reformatted images were obtained from the axial views for evaluation of f ractures, spinal alignment and canal. FINDINGS: Head: There is no evidence of acute intracranial hemorrhage, acute ischemic changes, mass, mass-effect, or extra-axial fluid collection. There is no effacement of cerebral sulci or basal subarachnoid cister ns. There is no hydrocephalus. There is no midline shift. Atkins-white matter distinction is preserv ed. Leftward nasal septal deviation. Mild mucosal thickening ethmoid air cells. Orbits and globes are int act. No calvarial fracture. Mastoid air cells well pneumatized. Cervical spine: No craniocervical junction, predental space widening, or prevertebral soft tissue swelling. Degenerat madison change C1 dens articulation. Severe degenerative disc disease throughout as well as multilevel facet and uncovertebral joint arthr opathy. Disc osteophyte complexes contributing to moderate mild canal stenoses at multiple levels. No acute fracture seen. Degenerative grade 1 retrolisthesis C4-C5 and C5-C6. Trace grade 1 anterolisthesis T2-T3. Possible early developing 7 mm nodule right upper lung not seen previously. Moderate emphysematous ch mesha. Multilevel facet and uncovertebral joint arthropathy. There is variable moderate to severe bilateral neural foraminal stenosis throughout. Sagittal and coronal reformatted images confirm above findings. COMBINED IMPRESSION: 1. No acute intracranial abnormality seen. 2. No acute fracture of the cervical spine. Moderately advanced spondylotic change with degenerative grade 1 spondylolisthesis C4-C5, C5-C6, and T2-T3. 3. Multilevel moderate spinal canal stenosis. Variable moderate to severe bilateral neural foraminal stenoses. 4. Possible developing 7 mm right upper lung pulmonary nodule. Background COPD. Appropriate oncologic follow-up recommended. [facility], , 02/02/2024 7:00 PM
--- NOTE | 2024-02-02 19:24 | XR ---
EXAMINATION TYPE: XR shoulder complete 3 views each side BILAT, XR Hip 2 views LT and AP Pelvis DATE OF EXAM: 02/02/2024 COMPARISON: NONE HISTORY: 73-year-old male pain after fall FINDINGS: Right shoulder: Postsurgical shortening distal right clavicle at the AC joint. Smooth delineation of the greater tube rosity. Mild degenerative spurring glenohumeral joint. No acute fracture, subluxation, dislocation se en. Right anterior chest wall injection port noted, tip is estimated at the mid SVC. Left shoulder: Degenerative change AC joint with joint space narrowing and marginal spurring. There is narrowing of the subacromial space and some sclerosis of the greater tuberosity. No acute fracture, subluxation, o r dislocation. Pelvis and left hip: Aortobiiliac endovascular stent graft. Osteopenia. Mild marginal spurring in both hips no acute fract ure, subluxation, or dislocation seen. No lytic lesion superior left acetabulum. IMPRESSION: 1. Right shoulder: Postsurgical resection distal right clavicle. Mild degenerative spurring glenohume ral joint. No acute osseous abnormality seen. 2. Left shoulder: Severe AC joint. Some narrowing of the subacromial space may reflect an underlying rotator cuff tear. Otherwise, no acute osseous abnormality seen. 3. Pelvis and left hip: No acute osseous abnormality seen. Aortobiiliac endovascular stent graft. Kno wn lytic lesion superior left acetabulum. Patchy osteopenia throughout. [facility], , 02/02/2024 7:22 PM
--- NOTE | 2024-02-02 19:30 | CT ---
EXAMINATION TYPE: CT pelvis wo con DATE OF EXAM: 02/02/2024 COMPARISON: PET/CT 01/04/2024 HISTORY: 73-year-old male fall and left hip pain, Patient reports 3 days ago falling from the step of his truck approximately 3 ft off the ground. Patient denies hitting head, loss of consciousness, bunny ng dizzy or lightheaded prior to falling. Patient complaining of pain in head, neck, back, right arm, left hip. TECHNIQUE: Contiguous axial scanning of the pelvis without IV contrast. Coronal and sagittal reconstr uctions performed. Reconstructions generated on a dedicated workstation. CT DLP: 323.1 mGycm Automated exposure control for dose reduction was used. FINDINGS: Aortobiiliac endovascular stent graft. There is some circumferential thickening at the proximal to mi d sigmoid colon. Moderate to large stool burden. Lytic lesion superior left acetabulum appears larger at 2.5 cm versus 2.2 cm, previously. There is gr eater degree of moth eaten appearance and cortical breakthrough at the anterior cortical margin. No discrete fracture is identified. Patchy osteopenia throughout. Stable sclerosis posterior right ac etabulum. Moderate degenerative disc disease and facet arthropathy visualized lower lumbar spine. Small right inguinal hernia containing nonobstructed small bowel loops. IMPRESSION: 1. KNOWN LYTIC METASTATIC DISEASE SUPERIOR LEFT ACETABULUM. THE LESION MAY BE MINIMALLY LARGER AT 2.5 CM VERSUS 2.2 CM, PREVIOUSLY. Greater degree of moth-eaten appearance with small area of cortical br eakthrough at the anterior acetabular cortex. 2. Background osteopenia. No displaced fracture. 3. Circumferential wall thickening proximal to mid sigmoid colon. Correlate for symptoms of underlyin g colitis/acute diverticulitis. 4. Small right inguinal hernia containing some nonobstructed small bowel loops. [facility], , 02/02/2024 7:28 PM
[2024-02-02] MEDS: KETOROLAC 15 MG/ML 1 ML VIAL IM STA (19:52)
[2024-02-02] MEDS: ACET/COD 300 MG/30 MG STARTER PACK 6 TAB BTL PO STA (19:54)
[2024-02-02] MEDS: IBUPROFEN 600 MG STARTER PACK 4 TAB BTL PO STA (19:55)
[2024-02-02] MEDS: CYCLOBENZAPRINE 10MG STARTER 3 TAB BTL PO STA (19:55)
[2024-02-02 20:02] VITALS: BP 119/76; PULSE 86
== END 2024-02-02 20:09 | disposition home or self-care (01) ==
LOC: EC 17:53
CPT/HCPCS: 70450; 72125; 72192; 73502; 96372; 99284; 99406

== ENCOUNTER → 2024-04-18 | Outpatient (CLI) | payer MEDICARE ==
[2024-04-18 12:04] LABS: African American GFR (CKD) >90 (>60 ml/min/1.73 sqM); Blood Urea Nitrogen 22 mg/dL (9-20); Non-African American GFR(CKD) 89 (>60 ml/min/1.73 sqM)
--- NOTE | 2024-04-18 14:38 | CT ---
EXAMINATION TYPE: CT ChestAbdPelvis w con CT DLP: 787.6 mGycm, Automated exposure control for dose reduction was used. DATE OF EXAM: 04/18/2024 1:42 PM COMPARISON: CT pelvis 02/02/2024, PET/CT 01/04/2024, 05/04/2023, 11/03/2022, 05/26/2022, level [address] 10/01/2023, 05/31/2023, CTA abdomen and pelvis 06/10/2021 CLINICAL INDICATION:Male, 73 years old with history of C34.11 MALIGNANT NEOPLASM OF UPPER LOBE, RIGHT BRO; PHH, LUNG CA Technique: Multiple axial images of the chest, abdomen, and pelvis were obtained following the intrav enous administration of 100 mL Isovue-300. Oral contrast was administered. Two-dimensional coronal an d sagittal reconstructions were obtained. Findings: CHEST: LUNGS/ PLEURA: Advanced centrilobular emphysematous changes. No pleural effusion, pneumothorax, focal consolidation. The size of peripheral anterior right upper lobe 4 mm pulmonary nodule (series 7, im age 18). Similar appearance of posterior right upper lung focal opacity measuring up to 1.2 cm (serie s 7, image 24). This demonstrated some mild radiotracer uptake in heart PET/CT. Left upper lobe perip heral linear reticular scarring. Stable peripheral anterior left lower lobe 8 mm nodular opacity (ser ies 7, image 58). No corresponding FDG activity in prior PET/CT. Similar right superior perihilar zakia ear scarring. New posterior right upper lobe 6 mm pleural-based nodule (series 7, image 17). AIRWAY: Patent and unremarkable.. HEART: Size within normal limits.No pericardial effusion. Small coronary artery calcifications. MEDIASTINUM: No evidence of adenopathy. VASCULATURE: Stable ascending thoracic aortic aneurysm measuring up to 4.2 cm. Mild atherosclerotic calcification of the aorta and its branches. Right anterior chest wall IJ approach report with distal tip the catheter in the low SVC. No filling defect identified within the central pulmonary vasculatu re to suggest pulmonary embolism. MUSCULOSKELETAL: No acute osseous abnormalities. Bilateral shoulder arthropathy. Diffuse bone deminer alization. SOFT TISSUES/LYMPH NODES: Bilateral gynecomastia. LOWER NECK: No significant findings. ABDOMEN: ABDOMEN LIVER: Unremarkable GALLBLADDER AND BILE DUCTS: Unremarkable. PANCREAS: Unremarkable. SPLEEN: Unremarkable. ADRENAL GLANDS: Unremarkable. KIDNEYS AND URETERS: No evidence of hydronephrosis or renal calculus. The kidneys enhance symmetrical ly. Contrast is demonstrated within both collecting systems on the delayed phase. PELVIS BLADDER: Unremarkable REPRODUCTIVE: Prostate gland is surgically absent. ABDOMEN & PELVIS STOMACH AND BOWEL: Small hiatal hernia with circumferential wall thickening at the GE junction.Enteri c contrast reaches the mid small bowel. Moderate colonic stool burden. Few scattered distal colonic d iverticula without evidence for acute diverticulitis. No evidence of bowel obstruction. PERITONEUM: No evidence of pneumoperitoneum or free fluid. VASCULATURE: Postsurgical changes from aortobiiliac stent graft. Mild atherosclerotic calcification o f the aorta and its branches. The celiac access and SMA are widely patent. The bilateral single renal arteries are widely patent. Poor visualization of the SHEILA. The excluded distal abdominal aortic aneu rysm sac measures up to 4.0 cm. MUSCULOSKELETAL: No acute osseous abnormalities. Diffuse bone demineralization. Known metastatic lyti c lesion superior left acetabulum is redemonstrated with more sclerotic heterogenous appearance. Ther e is similar heterogenous sclerotic appearance within the superior aspect of the right acetabulum fro m prior exam. Similar sclerotic appearance of the posterior right acetabulum. These are at sites of p rior treated metastasis. Multilevel degenerative changes of the visualized spine. Similar superior en dplate compression deformity versus Schmorl's node involving the L1 vertebral body. LYMPH NODES: No evidence for lymphadenopathy. SOFT TISSUE/ABDOMINAL WALL: Right inguinal hernia containing nonobstructive small bowel. IMPRESSION: 1. Known lytic metastasis to a disease and lungs appear left acetabulum demonstrates a more scleroti c appearance from prior CT. She also sclerotic regions within the right acetabulum from prior metasta sis are stable. No new definitive osseous metastatic lesions. 2. Similar right upper lobe nodular opacity within couple new peripheral right upper lung nodular op acities measuring less than 1 cm. May reflect an infectious/inflammatory process however metastasis i s not excluded. Consider follow-up CT chest in 3 months. 3. Circumferential wall thickening of the esophagus at the GE junction with small hiatal hernia. Cor relate for esophagitis/GERD. 4. Postsurgical changes from aortobiiliac stent graft. Stable ascending thoracic aortic aneurysm shaunna suring 4.2 cm. [facility], Workstation: [id number], 04/18/2024 2:36 PM
== END | disposition home or self-care (01) ==
LOC: RADCTMAIN 11:16
PROVIDERS: ATTEND Internal Medicine Hematology & Oncology
DX: C34.11 Malignant neoplasm of upper lobe, right bronchus or lung (principal); K44.9 Diaphragmatic hernia without obstruction or gangrene; I71.21 Aneurysm of the ascending aorta, without rupture
CPT/HCPCS: 82565; 84520; 71260; 74177; 36415; Q9967

== ENCOUNTER 2024-04-26 20:00 | Inpatient (IN) | payer MEDICARE ==
[2024-04-26 20:10] LABS: Glucose,Whole Blood 107 mg/dL (70-110)
--- NOTE | 2024-04-26 20:14 | ED ---
Fall HPI - General Chief Complaint: Fall Stated Complaint: Fall Time Seen by Provider: 04/26/24 20:03 Source: patient, EMS, RN notes reviewed, old records reviewed Mode of arrival: EMS Limitations: no limitations - History of Present Illness Initial Comments: This is a 73-year-old male to the ER for evaluation presents today for evaluation of altered mental status. Patient is found down fall with left hip pain. 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 Fall Witnessed: yes, by family Place Fall Occurred: home Loss of Consciousness: none Prolonged Down Time?: no Symptoms Prior to Fall: none Location: head Severity: moderate Severity scale (1-10): 3 Context: tripped/slipped Associated Symptoms: denies - Related Data Home Medications Medication Instructions Recorded Confirmed Aspirin [Adult Low Dose Aspirin EC] 81 mg PO DAILY 12/09/20 04/27/24 Atorvastatin [Lipitor] 80 mg PO DAILY 07/06/21 04/27/24 Isosorbide Mononitrate [Isosorbide 30 mg PO DAILY 09/18/22 04/27/24 Mononitrate ER] Albuterol Sulfate [Albuterol 1 puff INHALATION RT-Q6H PRN 04/27/24 04/27/24 Sulfate Hfa] Gabapentin 600 mg PO TID 04/27/24 04/27/24 Previous Rx's Medication Instructions Recorded HYDROcodone/APAP 7.5-325MG [Flint 1 tab PO QID PRN #4 tab 05/01/24 7.5-325] Heparin Sodium,Porcine (1 ml) 5,000 unit SQ Q8HR each 05/01/24 [Heparin Sodium] Nicotine 21Mg/24Hr Patch [Habitrol] 1 patch TRANSDERM DAILY patch 05/01/24 Sennosides [Senokot] 8.6 mg PO BID tab 05/01/24 bisacodyL [Dulcolax] 10 mg PO DAILY PRN tab 05/01/24 polyethylene glycoL 3350 [Miralax] 17 gm PO DAILY packet 05/01/24 Allergies Allergy/AdvReac Type Severity Reaction Status Date / Time pregabalin [From Lyrica] Allergy "spaced Verified 04/27/24 08:57 out and off balance" Review of Systems ROS Statement: Those systems with pertinent positive or pertinent negative responses have been documented in the HPI. ROS Other: All systems not noted in ROS Statement are negative. 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 pt states he has been coughing up some blood and has spot on his lung per PET scan. Bone CA L hip History of Any Multi-Drug Resistant Organisms: None Reported Past Surgical History: Appendectomy, Orthopedic Surgery, Prostate Surgery Additional Past Surgical History / Comment(s): rt shoulder surgery, oral cancer surgery, left cataract, prostatectomy, aortic stent in abdomen Past Anesthesia/Blood Transfusion Reactions: No Reported Reaction Past Psychological History: No Psychological Hx Reported Smoking Status: Current every day smoker Past Alcohol Use History: None Reported Past Drug Use History: None Reported - Past Family History Sister(s) Family Medical History: Deep Vein Thrombosis (DVT) Mother Family Medical History: Cancer Additional Family Medical History / Comment(s): Breast cancer. General Exam Limitations: no limitations General appearance: alert, in no apparent distress Head exam: Present: atraumatic, normocephalic, normal inspection Eye exam: Present: normal appearance, PERRL, EOMI. Absent: scleral icterus, conjunctival injection, periorbital swelling ENT exam: Present: normal exam, mucous membranes moist Neck exam: Present: normal inspection. Absent: tenderness, meningismus, l ymphadenopathy Respiratory exam: Present: normal lung sounds bilaterally. Absent: respiratory distress, wheezes, rales, rhonchi, stridor Cardiovascular Exam: Present: regular rate, normal rhythm, normal heart sounds. Absent: systolic murmur, diastolic murmur, rubs, gallop, clicks GI/Abdominal exam: Present: soft, normal bowel sounds. Absent: distended, tenderness, guarding, rebound, rigid Extremities exam: Present: normal inspection, full ROM, normal capillary refill. Absent: tenderness, pedal edema, joint swelling, calf tenderness Back exam: Present: normal inspection Neurological exam: Present: alert, oriented X3, CN II-XII intact Psychiatric exam: Present: normal affect, normal mood Skin exam: Present: warm, dry, intact, normal color. Absent: rash Course Vital Signs 04/26/24 04/26/24 04/27/24 20:04 23:59 04:00 Temperature 98.2 F Pulse Rate 85 86 80 Respiratory 18 16 16 Rate Blood Pressure 157/76 132/81 144/92 O2 Sat by Pulse 97 96 100 Oximetry 04/27/24 04/27/24 04/27/24 06:00 08:47 10:06 Temperature 98.2 F Pulse Rate 77 84 84 Respiratory 16 16 16 Rate Blood Pressure 134/71 131/69 134/79 O2 Sat by Pulse 100 92 L 92 L Oximetry 04/27/24 04/27/24 04/27/24 11:17 12:53 13:04 Temperature Pulse Rate 90 89 Respiratory 16 18 Rate Blood Pressure 125/64 133/105 119/66 O2 Sat by Pulse 92 L 94 L Oximetry 04/27/24 04/27/24 13:17 14:23 Temperature Pulse Rate 100 100 Respiratory 18 18 Rate Blood Pressure 119/66 119/66 O2 Sat by Pulse 93 L 93 L Oximetry - Reevaluation(s) Reevaluation #1: 04/26/24 20:14 Medical records reviewed Reevaluation #2: 04/26/24 20:14 Patient symptoms unchanged Reevaluation #3: 04/26/24 21:26 Patient informed of results and questions answered Reevaluation #4: Was pt. sent in by a medical professional or institution (, PA, [employer]ER, urgent care, hospital, or intermediate...) When possible be specific @ -no Did you speak to anyone other than the patient for history (EMS, parent, family, police, friend...)? What history was obtained from this source @ -no Did you review nursing and triage notes (agree or disagree)? Why? @ -agree Are old charts reviewed (outside hosp., previous admission, EMS record, old EKG, old radiological studies, urgent care reports/EKG's, intermediate records)? Report findings @ -yes Differential Diagnosis (chest pain, altered mental status, abdominal pain women, abdominal pain men, vaginal bleeding, weakness, fever, dyspnea, syncope, he adache, dizziness, GI bleed, back pain, seizure, CVA, palpatations, mental health, musculoskeletal)? @ -prior EKG interpreted by me (3pts min.). @ -yes X-rays interpreted by me (1pt min.). @ -yes negative for acute disease CT interpreted by me (1pt min.). @ -Yes negative for acute disease U/S interpreted by me (1pt. min.). @ -no What testing was considered but not performed or refused? (CT, X-rays, U/S, labs)? Why? @ -none What meds were considered but not given or refused? Why? @ -none Did you discuss the management of the patient with other professionals (professionals i.e. Dr., PA, [employer]ER, lab, RT, psych nurse, dialysis social worker, gleason gear generator, teacher, sales and service officer, director case)? Give summary @ -no Was smoking cessation discussed for >3mins.? @ -no Was critical care preformed (if so, how long)? @ -no Were there social determinants of health that impacted care today? How? (Homelessness, low income, unemployed, alcoholism, drug addiction, transportation, low edu. Level, literacy, decrease access to med. care, snf, rehab)? @ -none Was there de-escalation of care discussed even if they declined (Discuss DNR or withdrawal of care, Hospice)? DNR status @ -no What co-morbidities impacted this encounter? (DM, HTN, Smoking, COPD, CAD, Cancer, CVA, ARF, Chemo, Hep., AIDS, mental health diagnosis, sleep apnea, morbid obesity)? @ -none Was patient admitted / discharged? Hospital course, mention meds given and route, prescriptions, significant lab abnormalities, going to OR and other pertinent info. @ - 73 male to the ER for evaluation of severe weakness and debility will admit for severe dehydration PT OT Admitted Undiagnosed new problem with uncertain prognosis? @ -no Drug Therapy requiring intensive monitoring for toxicity (Heparin, Nitro, Insulin, Cardizem)? @ -no Were any procedures done? @ -no Diagnosis/symptom? @ -Debility weakness multiple falls hip pain Acute, or Chronic, or Acute on Chronic? @ -Acute Uncomplicated (without systemic symptoms) or Complicated (systemic symptoms)? @ -Complicated Side effects of treatment? @ -no Exacerbation, Progression, or Severe Exacerbation? @ -exacerbation Poses a threat to life or bodily function? How? (Chest pain, USA, ID, pneumonia, PE, COPD, DKA, ARF, appy, cholecystitis, CVA, Diverticulitis, Homicidal, Suicid al, threat to staff... and all critical care pts) @ -yes extremes of age Reevaluation #5: Differential Weakness: Hypoglycemia, shock, sepsis, hyponatremia, anemia, infection, ID, ETOH, adverse medicine reaction, overdose, stroke, this is not meant to be an all-inclusive l ist. - Consultations Consultation #1: Spoke with [facility] who agrees to admit this patient Medical Decision Making - Medical Decision Making 73 male to the ER for evaluation of severe weakness and debility will admit for severe dehydration PT OT - Lab Data Result diagrams: 04/29/24 05:22 04/29/24 05:22 Lab Results 04/26/24 04/26/24 04/26/24 Range/Units 20:08 20:19 20:19 WBC 9.3 (3.8-10.6) k/uL RBC 3.56 L (4.30-5.90) m/uL Hgb 10.3 L (13.0-17.5) gm/dL Hct 32.3 L (39.0-53.0) % MCV 90.8 (80.0-100.0) fL MCH 29.1 (25.0-35.0) pg MCHC 32.0 (31.0-37.0) g/dL RDW 18.0 H (11.5-15.5) % Plt Count 171 (150-450) k/uL MPV 8.6 Neutrophils % 85 % Lymphocytes % 4 % Monocytes % 9 % Eosinophils % 1 % Basophils % 0 % Neutrophils # 7.9 H (1.3-7.7) k/uL Lymphocytes # 0.4 L (1.0-4.8) k/uL Monocytes # 0.9 (0-1.0) k/uL Eosinophils # 0.1 (0-0.7) k/uL Basophils # 0.0 (0-0.2) k/uL Hypochromasia Moderate Anisocytosis Slight Macrocytosis PT 12.8 H (10.0-12.5) sec INR 1.2 H (<1.2) APTT 27.1 (22.0-30.0) sec Sodium (137-145) mmol/L Potassium (3.5-5.1) mmol/L Chloride (98-107) mmol/L Carbon Dioxide (22-30) mmol/L Anion Gap mmol/L BUN (9-20) mg/dL Creatinine (0.66-1.25) mg/dL Est GFR (CKD-EPI) (>=60) Est GFR (CKD-EPI)AfAm (>60 ml/min/1.73 sqM) Est GFR (CKD-EPI)NonAf (>60 ml/min/1.73 sqM) BUN/Creatinine Ratio (12.00-20.00) Ratio Glucose (74-99) mg/dL POC Glucose (mg/dL) 107 (70-110) mg/dL POC Glu Dam Tender Assistant ID Phyllis Pickens Plasma Lactic Acid Prieto (0.7-2.0) mmol/L Calcium (8.4-10.2) mg/dL Phosphorus (2.5-4.5) mg/dL Magnesium (1.6-2.3) mg/dL Total Bilirubin (0.2-1.3) mg/dL AST (17-59) U/L ALT (4-49) U/L Alkaline Phosphatase (38-126) U/L Creatine Kinase (55-170) U/L Troponin I (0.000-0.034) ng/mL NT-Pro-B Natriuret Pep pg/mL Total Protein (6.3-8.2) g/dL Albumin (3.5-5.0) g/dL TSH (0.465-4.680) mIU/L Urine Color Urine Appearance (Clear) Urine pH (5.0-8.0) Ur Specific Bigfoot (1.001-1.035) Urine Protein (Negative) Urine Glucose (UA) (Negative) Urine Ketones (Negative) Urine Blood (Negative) Urine Nitrite (Negative) Urine Bilirubin (Negative) Urine Urobilinogen (<2.0) mg/dL Ur Leukocyte Esterase (Negative) 04/26/24 04/26/24 04/26/24 Range/Units 20:19 20:19 20:19 WBC (3.8-10.6) k/uL RBC (4.30-5.90) m/uL Hgb (13.0-17.5) gm/dL Hct (39.0-53.0) % MCV (80.0-100.0) fL MCH (25.0-35.0) pg MCHC (31.0-37.0) g/dL RDW (11.5-15.5) % Plt Count (150-450) k/uL MPV Neutrophils % % Lymphocytes % % Monocytes % % Eosinophils % % Basophils % % Neutrophils # (1.3-7.7) k/uL Lymphocytes # (1.0-4.8) k/uL Monocytes # (0-1.0) k/uL Eosinophils # (0-0.7) k/uL Basophils # (0-0.2) k/uL Hypochromasia Anisocytosis Macrocytosis PT (10.0-12.5) sec INR (<1.2) APTT (22.0-30.0) sec Sodium 133 L (137-145) mmol/L Potassium 3.9 (3.5-5.1) mmol/L Chloride 97 L (98-107) mmol/L Carbon Dioxide 30 (22-30) mmol/L Anion Gap 6 mmol/L BUN 21 H (9-20) mg/dL Creatinine 0.65 L (0.66-1.25) mg/dL Est GFR (CKD-EPI) (>=60) Est GFR (CKD-EPI)AfAm >90 (>60 ml/min/1.73 sqM) Est GFR (CKD-EPI)NonAf >90 (>60 ml/min/1.73 sqM) BUN/Creatinine Ratio (12.00-20.00) Ratio Glucose 96 (74-99) mg/dL POC Glucose (mg/dL) (70-110) mg/dL POC Glu Dam Tender Assistant ID Plasma Lactic Acid Prieto 1.3 (0.7-2.0) mmol/L Calcium 8.9 (8.4-10.2) mg/dL Phosphorus 3.2 (2.5-4.5) mg/dL Magnesium 1.7 (1.6-2.3) mg/dL Total Bilirubin 1.2 (0.2-1.3) mg/dL AST 53 (17-59) U/L ALT 19 (4-49) U/L Alkaline Phosphatase 374 H (38-126) U/L Creatine Kinase 548 H (55-170) U/L Troponin I 0.035 H* (0.000-0.034) ng/mL NT-Pro-B Natriuret Pep 3770 pg/mL Total Protein 5.8 L (6.3-8.2) g/dL Albumin 3.1 L (3.5-5.0) g/dL TSH 2.680 (0.465-4.680) mIU/L Urine Color Urine Appearance (Clear) Urine pH (5.0-8.0) Ur Specific Bigfoot (1.001-1.035) Urine Protein (Negative) Urine Glucose (UA) (Negative) Urine Ketones (Negative) Urine Blood (Negative) Urine Nitrite (Negative) Urine Bilirubin (Negative) Urine Urobilinogen (<2.0) mg/dL Ur Leukocyte Esterase (Negative) 04/26/24 04/26/24 04/27/24 Range/Units 22:26 23:59 05:17 WBC (3.8-10.6) k/uL RBC (4.30-5.90) m/uL Hgb (13.0-17.5) gm/dL Hct (39.0-53.0) % MCV (80.0-100.0) fL MCH (25.0-35.0) pg MCHC (31.0-37.0) g/dL RDW (11.5-15.5) % Plt Count (150-450) k/uL MPV Neutrophils % % Lymphocytes % % Monocytes % % Eosinophils % % Basophils % % Neutrophils # (1.3-7.7) k/uL Lymphocytes # (1.0-4.8) k/uL Monocytes # (0-1.0) k/uL Eosinophils # (0-0.7) k/uL Basophils # (0-0.2) k/uL Hypochromasia Anisocytosis Macrocytosis PT (10.0-12.5) sec INR (<1.2) APTT (22.0-30.0) sec Sodium (137-145) mmol/L Potassium (3.5-5.1) mmol/L Chloride (98-107) mmol/L Carbon Dioxide (22-30) mmol/L Anion Gap mmol/L BUN (9-20) mg/dL Creatinine (0.66-1.25) mg/dL Est GFR (CKD-EPI) (>=60) Est GFR (CKD-EPI)AfAm (>60 ml/min/1.73 sqM) Est GFR (CKD-EPI)NonAf (>60 ml/min/1.73 sqM) BUN/Creatinine Ratio (12.00-20.00) Ratio Glucose (74-99) mg/dL POC Glucose (mg/dL) (70-110) mg/dL POC Glu Dam Tender Assistant ID Plasma Lactic Acid Prieto (0.7-2.0) mmol/L Calcium (8.4-10.2) mg/dL Phosphorus (2.5-4.5) mg/dL Magnesium (1.6-2.3) mg/dL Total Bilirubin (0.2-1.3) mg/dL AST (17-59) U/L ALT (4-49) U/L Alkaline Phosphatase (38-126) U/L Creatine Kinase (55-170) U/L Troponin I 0.032 0.028 (0.000-0.034) ng/mL NT-Pro-B Natriuret Pep pg/mL Total Protein (6.3-8.2) g/dL Albumin (3.5-5.0) g/dL TSH (0.465-4.680) mIU/L Urine Color Yellow Urine Appearance Clear (Clear) Urine pH 5.5 (5.0-8.0) Ur Specific Bigfoot 1.038 H (1.001-1.035) Urine Protein Trace H (Negative) Urine Glucose (UA) Negative (Negative) Urine Ketones 1+ H (Negative) Urine Blood Negative (Negative) Urine Nitrite Negative (Negative) Urine Bilirubin 1+ H (Negative) Urine Urobilinogen 3.0 (<2.0) mg/dL Ur Leukocyte Esterase Negative (Negative) 04/27/24 04/27/24 04/29/24 Range/Units 05:17 05:18 05:22 WBC 7.8 (3.8-10.6) k/uL RBC 3.70 L (4.30-5.90) m/uL Hgb 10.6 L (13.0-17.5) gm/dL Hct 35.4 L (39.0-53.0) % MCV 95.5 (80.0-100.0) fL MCH 28.6 (25.0-35.0) pg MCHC 30.0 L (31.0-37.0) g/dL RDW 17.9 H (11.5-15.5) % Plt Count 161 (150-450) k/uL MPV 8.5 Neutrophils % 84 % Lymphocytes % 5 % Monocytes % 7 % Eosinophils % 1 % Basophils % 0 % Neutrophils # 6.6 (1.3-7.7) k/uL Lymphocytes # 0.4 L (1.0-4.8) k/uL Monocytes # 0.5 (0-1.0) k/uL Eosinophils # 0.1 (0-0.7) k/uL Basophils # 0.0 (0-0.2) k/uL Hypochromasia Marked Anisocytosis Slight Macrocytosis Slight PT (10.0-12.5) sec INR (<1.2) APTT (22.0-30.0) sec Sodium 134 L 138 (137-145) mmol/L Potassium 3.5 3.4 L (3.5-5.1) mmol/L Chloride 100 94 L (98-107) mmol/L Carbon Dioxide 28 29.5 (22-30) mmol/L Anion Gap 6 14.50 H mmol/L BUN 17 9.0 (9-20) mg/dL Creatinine 0.63 L 0.8 (0.66-1.25) mg/dL Est GFR (CKD-EPI) 93 (>=60) Est GFR (CKD-EPI)AfAm >90 (>60 ml/min/1.73 sqM) Est GFR (CKD-EPI)NonAf >90 (>60 ml/min/1.73 sqM) BUN/Creatinine Ratio 11.25 L (12.00-20.00) Ratio Glucose 88 84 (74-99) mg/dL POC Glucose (mg/dL) (70-110) mg/dL POC Glu Dam Tender Assistant ID Plasma Lactic Acid Prieto (0.7-2.0) mmol/L Calcium 8.4 8.2 L (8.4-10.2) mg/dL Phosphorus 3.6 (2.5-4.5) mg/dL Magnesium 1.7 (1.6-2.3) mg/dL Total Bilirubin 0.9 (0.2-1.3) mg/dL AST 48 (17-59) U/L ALT 18 (4-49) U/L Alkaline Phosphatase 377 H (38-126) U/L Creatine Kinase (55-170) U/L Troponin I (0.000-0.034) ng/mL NT-Pro-B Natriuret Pep pg/mL Total Protein 5.3 L (6.3-8.2) g/dL Albumin 2.8 L (3.5-5.0) g/dL TSH (0.465-4.680) mIU/L Urine Color Urine Appearance (Clear) Urine pH (5.0-8.0) Ur Specific Bigfoot (1.001-1.035) Urine Protein (Negative) Urine Glucose (UA) (Negative) Urine Ketones (Negative) Urine Blood (Negative) Urine Nitrite (Negative) Urine Bilirubin (Negative) Urine Urobilinogen (<2.0) mg/dL Ur Leukocyte Esterase (Negative) 04/29/24 Range/Units 05:22 WBC 7.5 (3.8-10.6) k/uL RBC 3.37 L (4.30-5.90) m/uL Hgb 9.8 L (13.0-17.5) gm/dL Hct 31.0 L (39.0-53.0) % MCV 92.0 (80.0-100.0) fL MCH 29.0 (25.0-35.0) pg MCHC 31.6 (31.0-37.0) g/dL RDW 18.0 H (11.5-15.5) % Plt Count 168 (150-450) k/uL MPV 8.4 Neutrophils % 85 % Lymphocytes % 4 % Monocytes % 8 % Eosinophils % 0 % Basophils % 0 % Neutrophils # 6.4 (1.3-7.7) k/uL Lymphocytes # 0.3 L (1.0-4.8) k/uL Monocytes # 0.6 (0-1.0) k/uL Eosinophils # 0.0 (0-0.7) k/uL Basophils # 0.0 (0-0.2) k/uL Hypochromasia Moderate Anisocytosis Slight Macrocytosis PT (10.0-12.5) sec INR (<1.2) APTT (22.0-30.0) sec Sodium (137-145) mmol/L Potassium (3.5-5.1) mmol/L Chloride (98-107) mmol/L Carbon Dioxide (22-30) mmol/L Anion Gap mmol/L BUN (9-20) mg/dL Creatinine (0.66-1.25) mg/dL Est GFR (CKD-EPI) (>=60) Est GFR (CKD-EPI)AfAm (>60 ml/min/1.73 sqM) Est GFR (CKD-EPI)NonAf (>60 ml/min/1.73 sqM) BUN/Creatinine Ratio (12.00-20.00) Ratio Glucose (74-99) mg/dL POC Glucose (mg/dL) (70-110) mg/dL POC Glu Dam Tender Assistant ID Plasma Lactic Acid Prieto (0.7-2.0) mmol/L Calcium (8.4-10.2) mg/dL Phosphorus (2.5-4.5) mg/dL Magnesium (1.6-2.3) mg/dL Total Bilirubin (0.2-1.3) mg/dL AST (17-59) U/L ALT (4-49) U/L Alkaline Phosphatase (38-126) U/L Creatine Kinase (55-170) U/L Troponin I (0.000-0.034) ng/mL NT-Pro-B Natriuret Pep pg/mL Total Protein (6.3-8.2) g/dL Albumin (3.5-5.0) g/dL TSH (0.465-4.680) mIU/L Urine Color Urine Appearance (Clear) Urine pH (5.0-8.0) Ur Specific Bigfoot (1.001-1.035) Urine Protein (Negative) Urine Glucose (UA) (Negative) Urine Ketones (Negative) Urine Blood (Negative) Urine Nitrite (Negative) Urine Bilirubin (Negative) Urine Urobilinogen (<2.0) mg/dL Ur Leukocyte Esterase (Negative) - EKG Data -: EKG Interpreted by Me (EKG is sinus 85 VT 116 QRS 111 QTc 440) - Radiology Data Radiology results: report reviewed (CT brain C-spine chest and pelvis x-ray left hip x-ray negative for traumatic injury), image reviewed Disposition Clinical Impression: Fall, Debility, Weakness Disposition: ADMITTED IP TO THIS [facility] Condition: Fair Is patient prescribed a controlled substance at d/c from ED?: No Time of Disposition: 21:20
[2024-04-26] MEDS: SODIUM CHLORIDE 0.9% 1,000 ML IV STA ×2 (20:19→20:20)
[2024-04-26] MEDS: ONDANSETRON 4 MG/2 ML VIAL IVP STA (20:20)
[2024-04-26] MEDS: MORPHINE SULFATE 4 MG/ML SYRINGE IV STA (20:20)
[2024-04-26 20:31] LABS: Anisocytosis Slight; Basophils % (A) 0 %; Eosinophils # (A) 0.1 k/uL (0-0.7); Eosinophils % (A) 1 %; HCT 32.3 % (39.0-53.0); HGB 10.3 gm/dL (13.0-17.5); Hypochromasia Moderate; Lymphocytes # (A) 0.4 k/uL (1.0-4.8); Lymphocytes % (A) 4 %; MCH 29.1 pg (25.0-35.0); MCV 90.8 fL (80.0-100.0); Mean Platelet Volume 8.6; Monocytes # (A) 0.9 k/uL (0-1.0); Monocytes % (A) 9 %; Neutrophils # (A) 7.9 k/uL (1.3-7.7); Neutrophils % (A) 85 %; Platelet Count 171 k/uL (150-450); RBC 3.56 m/uL (4.30-5.90); WBC 9.3 k/uL (3.8-10.6)
--- NOTE | 2024-04-26 20:43 | XR ---
EXAMINATION TYPE: XR chest 2V DATE OF EXAM: 04/26/2024 8:39 PM COMPARISON: Chest radiographs from 03/14/2021 CLINICAL INDICATION: Male, 73 years old with history of Weakness; [facility] TECHNIQUE: XR chest 2V Frontal and lateral views of the chest. FINDINGS: Lungs/Pleura: There is flattening of the diaphragm with increased lucency of the lungs. No evidence o f pneumothorax, pleural effusion or focal consolidation. Pulmonary vascularity: Unremarkable. Heart/mediastinum: Cardiomediastinal silhouette is unremarkable. Musculoskeletal: No acute osseous pathology. Other findings: None Right [id number] with tip in the superior vena cava. IMPRESSION: 1. Low lung volumes, No acute cardiopulmonary disease process. 2. COPD changes. [facility], , 04/26/2024 8:41 PM
[2024-04-26 20:45] LABS: ALT 19 U/L (4-49); AST 53 U/L (17-59); African American GFR (CKD) >90 (>60 ml/min/1.73 sqM); Albumin 3.1 g/dL (3.5-5.0); Alkaline Phosphatase 374 U/L (38-126); Anion Gap 6 mmol/L; Blood Urea Nitrogen 21 mg/dL (9-20); Calcium 8.9 mg/dL (8.4-10.2); Carbon Dioxide 30 mmol/L (22-30); Chloride 97 mmol/L (98-107); Creatine Kinase 548 U/L (55-170); Glucose 96 mg/dL (74-99); Magnesium 1.7 mg/dL (1.6-2.3); Non-African American GFR(CKD) >90 (>60 ml/min/1.73 sqM); Phosphorus 3.2 mg/dL (2.5-4.5); Sodium 133 mmol/L (137-145); Total Bilirubin 1.2 mg/dL (0.2-1.3); Total Protein 5.8 g/dL (6.3-8.2)
[2024-04-26 20:46] LABS: Potassium 3.9 mmol/L (3.5-5.1)
[2024-04-26 20:53] LABS: NT-Pro-B-Type Natriuretic Pept 3770 pg/mL
[2024-04-26 21:03] LABS: INR 1.2 (<1.2); Partial Thromboplastin Time 27.1 sec (22.0-30.0); Prothrombin Time 12.8 sec (10.0-12.5)
--- NOTE | 2024-04-26 21:20 | XR ---
EXAMINATION TYPE: XR Hip LT and AP Pelvis DATE OF EXAM: 04/26/2024 8:48 PM COMPARISON: 02/02/2024 CLINICAL INDICATION: Male, 73 years old with history of fall; PHH, pain TECHNIQUE: XR Hip LT and AP Pelvis; hip was examined in the frontal and lateral projections and a AP pelvis. FINDINGS: No evidence for acute process, joint dislocation or significant soft tissue swelling. Osteo phyte formation of the superior acetabulum of the hip. There is mild joint space narrowing. IMPRESSION: 1. No evidence for acute process. 2. Mild to moderate hip osteoarthrosis. [facility], , 04/26/2024 9:18 PM
[2024-04-26] MEDS ORDERED: ONDANSETRON 4 MG/2 ML VIAL IVP PRN (21:23)
[2024-04-26] MEDS ORDERED: NALOXONE 0.4 MG/ML 1 ML VIAL IV PRN (21:23)
--- NOTE | 2024-04-26 21:34 | CT ---
EXAMINATION TYPE: CT brain cspine wo con DATE OF EXAM: 04/26/2024 9:11 PM COMPARISON: 02/02/2024 CLINICAL INDICATION: Male, 73 years old with history of fall; Fell yesterday, No LOC, No thinners., p ain TECHNIQUE: Brain: Multiple axial CT images of the brain were obtained without IV contrast. Cspine: Axial CT images from the skull base to the inferior aspect of T2 we obtained without intraven ous contrast. Coronal and sagittal reformatted images were also reviewed. . CT DLP: 1416.9 mGycm, Automated exposure control for dose reduction was used. FINDINGS: Brain: Extra-axial spaces: No abnormal extra-axial fluid collections. Ventricular system: Dilatation in proportion to cerebral atrophy. Cerebral parenchyma: Cerebral atrophy. No acute intraparenchymal hemorrhage or mass effect. The camacho -white junction is well differentiated. Scattered hypoattenuating areas are seen within the white mat ter. Cerebellum: Unremarkable. Mass effect: No evidence of midline shift. Intracranial vasculature: Atherosclerotic calcifications of the intracranial vessels. Soft tissues: Normal. Calvarium/osseous structures: No depressed skull fracture. Paranasal sinuses and mastoid air cells: Clear. Visualized orbits: Orbital contents are intact. Cervical spine: Fracture: None. Osseous structures: Multilevel degenerative disc disease changes with endplate spurring and disc oste ophyte complex's. Vertebral alignment: Within normal limits. Spinal canal/Neural Foramina: No evidence of significant spinal canal narrowing. No evidence for sign ificant neural foraminal stenosis. Neck soft tissues: Prevertebral soft tissues are within normal limits. Other: The airway is patent. [id number] emphysema changes in lung apices. Right central venous catheter present. Multiple punctate and more larger opacities are seen within the right lung apex shaunna suring up to 11 mm, previously 8 mm and 2624. IMPRESSION: 1. No acute intracranial process. 2. Nonspecific white matter changes, likely secondary to chronic small vessel ischemic disease. 3. No evidence of cervical spine fracture. 4. Moderate to severe multilevel degenerative disc disease. 5. Slightly larger right apex grouped nodules compared to prior. [facility], , 04/26/2024 9:31 PM
[2024-04-26] MEDS: HYDROmorphone 1 MG/ML 1 ML SYRINGE IVP STA (21:42)
[2024-04-26] MEDS: SODIUM CHLORIDE 0.9% 1,000 ML IV SCH (21:45)
[2024-04-26 22:37] LABS: Appearance,Urine Clear (Clear); Bilirubin,Urine 1+ (Negative); Blood,Urine Negative (Negative); Color,Urine Yellow; Glucose,Urine (UA) Negative (Negative); Ketones,Urine 1+ (Negative); Leukocyte Esterase,Urine Negative (Negative); Nitrite,Urine Negative (Negative); PH, Urine 5.5 (5.0-8.0); Protein,Urine Trace (Negative); Specific Gravity,Urine 1.038 (1.001-1.035)
[2024-04-27] MEDS: MORPHINE SULFATE 4 MG/ML SYRINGE IV PRN (04:30)
[2024-04-27 05:31] LABS: Anisocytosis Slight; Basophils % (A) 0 %; Eosinophils # (A) 0.1 k/uL (0-0.7); Eosinophils % (A) 1 %; HCT 35.4 % (39.0-53.0); HGB 10.6 gm/dL (13.0-17.5); Hypochromasia Marked; Lymphocytes # (A) 0.4 k/uL (1.0-4.8); Lymphocytes % (A) 5 %; MCH 28.6 pg (25.0-35.0); MCV 95.5 fL (80.0-100.0); Macrocytosis Slight; Mean Platelet Volume 8.5; Monocytes # (A) 0.5 k/uL (0-1.0); Monocytes % (A) 7 %; Neutrophils # (A) 6.6 k/uL (1.3-7.7); Neutrophils % (A) 84 %; Platelet Count 161 k/uL (150-450); RDW 17.9 % (11.5-15.5); WBC 7.8 k/uL (3.8-10.6)
[2024-04-27 05:48] LABS: ALT 18 U/L (4-49); AST 48 U/L (17-59); African American GFR (CKD) >90 (>60 ml/min/1.73 sqM); Albumin 2.8 g/dL (3.5-5.0); Alkaline Phosphatase 377 U/L (38-126); Anion Gap 6 mmol/L; Blood Urea Nitrogen 17 mg/dL (9-20); Calcium 8.4 mg/dL (8.4-10.2); Carbon Dioxide 28 mmol/L (22-30); Chloride 100 mmol/L (98-107); Glucose 88 mg/dL (74-99); Magnesium 1.7 mg/dL (1.6-2.3); Non-African American GFR(CKD) >90 (>60 ml/min/1.73 sqM); Phosphorus 3.6 mg/dL (2.5-4.5); Potassium 3.5 mmol/L (3.5-5.1); Sodium 134 mmol/L (137-145); Total Bilirubin 0.9 mg/dL (0.2-1.3); Total Protein 5.3 g/dL (6.3-8.2)
[2024-04-27] MEDS: PANTOPRAZOLE 40 MG/10 ML VIAL IV SCH (08:58)
[2024-04-27] MEDS: ASPIRIN 81 MG PO SCH (10:37)
[2024-04-27] MEDS: ISOSORBIDE MONONITRATE ER 30 MG TAB.ER.24H PO SCH (10:37)
[2024-04-27] MEDS: ATORVASTATIN 80 MG TAB PO SCH (10:37)
[2024-04-27] MEDS: HYDROcodone/APAP 7.5-325MG 1 EACH TAB PO PRN (10:39)
--- NOTE | 2024-04-27 11:06 | P.HPIM ---
History of Present Illness This is a pleasant 73 years old male with past medical history of esophageal cancer, and also recently diagnosed with hip cancer and he is supposed to get radiotherapy this coming Sunday. He presents because of fall. He was bringing his groceries from the car to the house when he lost his step and he fell. Patient denies dizziness or loss of consciousness. After fall on his left side of the hip, is complaining from pain 6/10, he could not get up. He denies chest pain or dyspnea. No specific GI or symptoms. He complains from little cough and phlegm He smokes about 2 packs/day and he was counseled to quit and he agrees to the nicotine patch. No alcohol or illicit drugs. On exam he has significant bilateral leg swelling Patient is hemodynamically stable, afebrile Hemoglobin 10.6 other than that his CBC, BMP, LFT and INR were unremarkable Troponin is elevated 0.035, repeat troponin is normal at 0.032 at 0.032 at 0.0 28 proBNP is elevated 3770 CT of the head and brain is negative for acute process but there is slightly large right apex lung nodules Chest x-ray showing low lung volume with COPD chronic changes, no acute process other than that EKG sinus rhythm at [address] elevation but there is ST depression in V3-V5 Review of Systems Review of systems CONSTITUTIONAL: No fever, no malaise, no fatigue. HEENT: No recent visual problems or hearing problems. Denied any sore throat. CARDIOVASCULAR: No orthopnea, PND, no palpitations, no syncope. PULMONARY: No shortness of breath, no cough, no hemoptysis. GASTROINTESTINAL: No diarrhea, no nausea, no vomiting, no abdominal pain. Normoactive bowel sounds. NEUROLOGICAL: No headaches, no weakness, no numbness. HEMATOLOGICAL: Denies any bleeding or petechiae. GENITOURINARY: Denies any burning micturition, frequency, or urgency. MUSCULOSKELETAL/RHEUMATOLOGICAL: Denies any joint pain, swelling, or any muscle pain. ENDOCRINE: Denies any polyuria or polydipsia. 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 pt states he has been coughing up some blood and has spot on his lung per PET scan. Bone CA L hip History of Any Multi-Drug Resistant Organisms: None Reported Past Surgical History: Appendectomy, Orthopedic Surgery, Prostate Surgery Additional Past Surgical History / Comment(s): rt shoulder surgery, oral cancer surgery, left cataract, prostatectomy, aortic stent in abdomen Past Anesthesia/Blood Transfusion Reactions: No Reported Reaction Past Psychological History: No Psychological Hx Reported Smoking Status: Current every day smoker Past Alcohol Use History: None Reported Past Drug Use History: None Reported - Past Family History Sister(s) Family Medical History: Deep Vein Thrombosis (DVT) Mother Family Medical History: Cancer Additional Family Medical History / Comment(s): Breast cancer. Medications and Allergies Home Medications Medication Instructions Recorded Confirmed Type Aspirin [Adult Low Dose Aspirin EC] 81 mg PO DAILY 12/09/20 04/27/24 History Atorvastatin [Lipitor] 80 mg PO DAILY 07/06/21 04/27/24 History Isosorbide Mononitrate [Isosorbide 30 mg PO DAILY 09/18/22 04/27/24 History Mononitrate ER] Albuterol Sulfate [Albuterol 1 puff INHALATION RT-Q6H PRN 04/27/24 04/27/24 History Sulfate Hfa] Gabapentin 600 mg PO TID 04/27/24 04/27/24 History HYDROcodone/APAP 7.5-325MG [[place] 1 tab PO QID PRN 04/27/24 04/27/24 History 7.5-325] Allergies Allergy/AdvReac Type Severity Reaction Status Date / Time pregabalin [From Lyrica] Allergy "spaced Verified 04/27/24 08:57 out and off balance" Physical Exam Vitals: Vital Signs Temp Pulse Resp BP Pulse Ox 04/27/24 10:06 84 16 134/79 92 L 04/27/24 08:47 98.2 F 84 16 131/69 92 L 04/27/24 06:00 77 16 134/71 100 04/27/24 04:00 80 16 144/92 100 04/26/24 23:59 86 16 132/81 96 04/26/24 20:04 98.2 F 85 18 157/76 97 Intake and Output 04/26/24 04/27/24 04/27/24 22:59 06:59 14:59 Other: Weight 79.379 kg GENERAL: The patient is alert and oriented x3, not in any acute distress. Well developed, well nourished. HEENT: Pupils are round and equally reacting to light. EOMI. No scleral icterus. No conjunctival pallor. Normocephalic, atraumatic. No pharyngeal erythema. No thyromegaly. CARDIOVASCULAR: S1 and S2 present. No murmurs, rubs, or gallops. PULMONARY: Chest is clear to auscultation, no wheezing , no crackles. ABDOMEN: Soft, nontender, nondistended, normoactive bowel sounds. No palpable organomegaly. -MUSCULOSKELETAL: No joint swelling or deformity. Tenderness in the left hip area -EXTREMITIES: No cyanosis, clubbing,. Bilateral pitting leg edema 3+. NEUROLOGICAL: Gross neurological examination did not reveal any focal deficits. SKIN: No rashes. no petechiae. Results CBC & Chem 7: 04/27/24 05:17 04/27/24 05:18 Labs: Abnormal Lab Results - Last 24 Hours (Table) 04/26/24 04/26/24 04/26/24 Range/Units 20:19 20:19 20:19 RBC 3.56 L (4.30-5.90) m/uL Hgb 10.3 L (13.0-17.5) gm/dL Hct 32.3 L (39.0-53.0) % MCHC (31.0-37.0) g/dL RDW 18.0 H (11.5-15.5) % Neutrophils # 7.9 H (1.3-7.7) k/uL Lymphocytes # 0.4 L (1.0-4.8) k/uL PT 12.8 H (10.0-12.5) sec INR 1.2 H (<1.2) Sodium 133 L (137-145) mmol/L Chloride 97 L (98-107) mmol/L BUN 21 H (9-20) mg/dL Creatinine 0.65 L (0.66-1.25) mg/dL Alkaline Phosphatase 374 H (38-126) U/L Creatine Kinase 548 H (55-170) U/L Troponin I (0.000-0.034) ng/mL Total Protein 5.8 L (6.3-8.2) g/dL Albumin 3.1 L (3.5-5.0) g/dL Ur Specific [place] (1.001-1.035) Urine Protein (Negative) Urine Ketones (Negative) Urine Bilirubin (Negative) 04/26/24 04/26/24 04/27/24 Range/Units 20:19 22:26 05:17 RBC 3.70 L (4.30-5.90) m/uL Hgb 10.6 L (13.0-17.5) gm/dL Hct 35.4 L (39.0-53.0) % MCHC 30.0 L (31.0-37.0) g/dL RDW 17.9 H (11.5-15.5) % Neutrophils # (1.3-7.7) k/uL Lymphocytes # 0.4 L (1.0-4.8) k/uL PT (10.0-12.5) sec INR (<1.2) Sodium (137-145) mmol/L Chloride (98-107) mmol/L BUN (9-20) mg/dL Creatinine (0.66-1.25) mg/dL Alkaline Phosphatase (38-126) U/L Creatine Kinase (55-170) U/L Troponin I 0.035 H* (0.000-0.034) ng/mL Total Protein (6.3-8.2) g/dL Albumin (3.5-5.0) g/dL Ur Specific [place] 1.038 H (1.001-1.035) Urine Protein Trace H (Negative) Urine Ketones 1+ H (Negative) Urine Bilirubin 1+ H (Negative) 04/27/24 Range/Units 05:18 RBC (4.30-5.90) m/uL Hgb (13.0-17.5) gm/dL Hct (39.0-53.0) % MCHC (31.0-37.0) g/dL RDW (11.5-15.5) % Neutrophils # (1.3-7.7) k/uL Lymphocytes # (1.0-4.8) k/uL PT (10.0-12.5) sec INR (<1.2) Sodium 134 L (137-145) mmol/L Chloride (98-107) mmol/L BUN (9-20) mg/dL Creatinine 0.63 L (0.66-1.25) mg/dL Alkaline Phosphatase 377 H (38-126) U/L Creatine Kinase (55-170) U/L Troponin I (0.000-0.034) ng/mL Total Protein 5.3 L (6.3-8.2) g/dL Albumin 2.8 L (3.5-5.0) g/dL Ur Specific [place] (1.001-1.035) Urine Protein (Negative) Urine Ketones (Negative) Urine Bilirubin (Negative) Assessment and Plan Assessment: Fall without syncope Elevated troponin Left hip pain secondary to fall Bilateral leg swelling Recent history of hip cancer supposed to get radiotherapy in 1 week History of esophageal cancer hyperlipidemia Osteoarthritis COPD Plan: continue with aspirin and Lipitor Cardiology team consult Continue with PT/OT evaluation Pain management Orthopedic team consult Discontinue IV fluid and start IV Lasix Hematology/oncology team consult Labs and medication were reviewed.. Continue same treatment. Continue with sy mptomatic treatment. Resume home medication. Monitor labs and vitals. DVT and GI prophylaxis. Further recommendations as per clinical course of the patient DVT prophylaxis: Subcutaneous heparin GI Prophylaxis: Pepcid PT/OT: Pending Prognosis is guarded
[2024-04-27] MEDS ORDERED: FUROSEMIDE 40 MG TAB PO SCH (11:15)
[2024-04-27] MEDS: FUROSEMIDE 10 MG/ML 4 ML VIAL IV SCH (11:20)
[2024-04-27] MEDS: GABAPENTIN 300 MG CAP PO SCH (15:11)
[2024-04-27] MEDS: HEPARIN SODIUM,PORCINE 5,000 UNIT/ML 1 ML VIAL SQ SCH (15:12)
[2024-04-27] MEDS: NICOTINE 21MG/24HR PATCH TRANSDERM SCH (15:12)
[2024-04-28 10:29] VITALS: BMI 24.4
--- NOTE | 2024-04-28 11:11 | P.CRDCN ---
History of Present Illness Consult date: 04/28/24 Reason for Consult (text): High troponin, ST depression History of present illness: This is a 73-year-old male patient of Dr. Gladys Cordero with past medical history of coronary artery disease diagnosed on CT scan, tobacco use, hyperlipidemia, esop hageal cancer, history of aortoiliac endograft done in [address] Hayes. We have been asked to evaluate the patient for high troponin and ST depression. Patient presented to the hospital due to altered mental status and had a fall with left hip pain. Patient denies mental status changes. He states that he has had ongoing pain and after the fall became significantly worse. He states he was bringing his groceries in and tripped. He has been using crutches prior to the fall. He denies having any chest pain or chest pressure no shortness of breath. Regarding esophageal cancer, patient was scheduled to start radiation therapy today. Blood pressure 131/66, heart rate 93, pulse ox 98% on 2 L nasal cannula. -EKG: Sinus rhythm, incomplete right bundle branch block, LAD, T wave abnorm ality -Chest x-ray: Low lung volumes. No acute process. COPD. -Left hip and pelvis x-ray: No acute process -CT head and cervical spine. No acute intracranial process. No evidence of cervical spine fracture. -Laboratory studies: WBC 7.8, hemoglobin 10.6. Sodium 134, potassium 3.5, BUN 17 and creatinine 0.63. Troponin 0.035, 0.032 and 0.028. proBNP 3770. -Home cardiac medications: Aspirin 81 mg daily, atorvastatin 80 mg daily, isosorbide 30 mg daily -Lexiscan Cardiolite stress test performed in the office on 04/13/2023 reveals negative stress test by EKG criteria. Normal myocardial perfusion and function. Review Of Systems: At the time of my exam: CONSTITUTIONAL: Denies fever or chills. HEENT: Denies blurred vision, vision changes, or eye pain. Denies hemoptysis CARDIOVASCULAR: Denies chest pain. Denies orthopnea. Denies PND. Denies palpitations RESPIRATORY: Denies shortness of breath. GASTROINTESTINAL: Denies abdominal pain. Denies nausea or vomiting. HEMATOLOGIC: Denies bleeding disorders. GENITOURINARY: Denies any blood in urine. SKIN: Denies puritis. Denies rash. Physical examination: Gen: This is a 73-year-old male in no acute distress VS: reviewed HEENT: Head is atraumatic, normocephalic. Pupils equal, round. Sclerae is anicteric. Voice is hoarse. NECK: Supple. No JVD. LUNGS: Clear to auscultation. No wheezes or rhonchi. No intercostal retractions. HEART: Regular rate and rhythm. No murmur. ABDOMEN: Soft No tenderness. EXTREMITIES: No pedal edema. No calf tenderness. NEUROLOGICAL: Patient is awake, alert and oriented x3. Assessment: Elevated troponins type II OK Fall, mechanical Left hip pain Coronary artery disease Hyperlipidemia Esophageal cancer Tobacco use Plan: Resume patient's home cardiac medications Obtain 2-D echocardiogram and Doppler study to assess cardiac structure and function If echocardiogram is unremarkable, no plan for any further cardiac workup. Patient had a recent Lexiscan stress test done in the office which was negative. Thank you kindly for this consultation. Nurse practitioner note has been reviewed, I agree with documented findings and plan of care. Patient was seen and examined. I 73-year-old Past Medical History Past Medical History: Cancer, COPD, Hyperlipidemia, Musculoskeletal Disorder, Osteoarthritis (OA), Prostate Disorder, Skin Disorder Additional Past Medical History / Comment(s): abdominal aortic aneurysm has 1 stent, diarrhea, hx skin cancer, hx prostate cancer, hx throat/vocal cord cancer, hx oral cancer, esophageal cancer-had chemo & radiation completed 04/2021, couple patches of itchy skin, 90% blockage in one of coronary arteries- taking nitrate for, takes gabapentin for back pain. pt states he has been coughing up some blood and has spot on his lung per PET scan. Bone CA L hip History of Any Multi-Drug Resistant Organisms: None Reported Past Surgical History: Appendectomy, Orthopedic Surgery, Prostate Surgery Additional Past Surgical History / Comment(s): rt shoulder surgery, oral cancer surgery, left cataract, prostatectomy, aortic stent in abdomen Past Anesthesia/Blood Transfusion Reactions: No Reported Reaction Past Psychological History: No Psychological Hx Reported Smoking Status: Current every day smoker Past Alcohol Use History: None Reported Additional Past Alcohol Use History / Comment(s): 2 PPD, has smoked for 54 yrs Past Drug Use History: None Reported - Past Family History Sister(s) Family Medical History: Deep Vein Thrombosis (DVT) Mother Family Medical History: Cancer Additional Family Medical History / Comment(s): Breast cancer. Medications and Allergies Home Medications Medication Instructions Recorded Confirmed Type Aspirin [Adult Low Dose Aspirin EC] 81 mg PO DAILY 12/09/20 04/27/24 History Atorvastatin [Lipitor] 80 mg PO DAILY 07/06/21 04/27/24 History Isosorbide Mononitrate [Isosorbide 30 mg PO DAILY 09/18/22 04/27/24 History Mononitrate ER] Albuterol Sulfate [Albuterol 1 puff INHALATION RT-Q6H PRN 04/27/24 04/27/24 History Sulfate Hfa] Gabapentin 600 mg PO TID 04/27/24 04/27/24 History HYDROcodone/APAP 7.5-325MG [[place] 1 tab PO QID PRN 04/27/24 04/27/24 History 7.5-325] Allergies Allergy/AdvReac Type Severity Reaction Status Date / Time pregabalin [From Lyrica] Allergy "spaced Verified 04/27/24 08:57 out and off balance" Physical Exam Vitals: Vital Signs Temp Pulse Pulse Resp BP BP Pulse Ox 04/28/24 07:13 97.5 F L 93 20 131/66 98 04/28/24 00:35 98.5 F 89 18 124/68 98 04/27/24 19:06 98.3 F 71 16 118/83 91 L 04/27/24 14:30 98.2 F 103 H 16 122/63 94 L 04/27/24 14:23 100 18 119/66 93 L 04/27/24 13:17 100 18 119/66 93 L 04/27/24 13:04 119/66 04/27/24 12:53 89 18 133/105 94 L 04/27/24 11:17 90 16 125/64 92 L 04/27/24 10:06 84 16 134/79 92 L 04/27/24 08:47 98.2 F 84 16 131/69 92 L Intake and Output 04/27/24 04/28/24 04/28/24 22:59 06:59 14:59 Output Total 225 200 Balance -225 -200 Output: Urine 225 200 Other: Voiding Method Urinal Urinal # Voids 1 Results 04/27/24 05:17 04/27/24 05:18 Current Medications Generic Name Dose Route Start Last Admin Trade Name Freq PRN Reason Stop Dose Admin Hydrocodone Bitart/Acetaminophen 1 each 04/27/24 10:21 04/28/24 07:49 Hydrocodone/Apap 7.5-325mg 1 Each Tab PO 1 each QID PRN Administration Moderate Pain (Scale 4 to 6) Albuterol Sulfate 2.5 mg 04/27/24 10:21 Albuterol Nebulized 2.5 Mg/3 Ml INHALATION RT-Q6H PRN Shortness Of Breath Aspirin 81 mg 04/27/24 10:30 04/28/24 07:39 Aspirin 81 Mg PO 81 mg DAILY FAVIOLA Administration Atorvastatin Calcium 80 mg 04/27/24 10:30 04/28/24 07:39 Atorvastatin 80 Mg Tab PO 80 mg DAILY FAVIOLA Administration Furosemide 40 mg 04/27/24 11:15 04/28/24 07:39 Furosemide 10 Mg/Ml 4 Ml Vial IV 40 mg DAILY FAVIOLA Administration Gabapentin 600 mg 04/27/24 16:00 04/28/24 07:38 Gabapentin 300 Mg Cap PO 600 mg TID FAVIOLA Administration Heparin Sodium (Porcine) 5,000 unit 04/27/24 16:00 04/28/24 07:39 Heparin Sodium,Porcine 5,000 Unit/Ml 1 Ml Vial SQ 5,000 unit Q8HR FAVIOLA Administration Isosorbide Mononitrate 30 mg 04/27/24 10:30 04/28/24 07:38 Isosorbide Mononitrate Er 30 Mg Tab.Er.24h PO 30 mg DAILY FAVIOLA Administration Morphine Sulfate 4 mg 04/26/24 21:23 04/27/24 15:12 Morphine Sulfate 4 Mg/Ml Syringe IV 4 mg Q4HR PRN Administration Severe Pain (Scale 7 to 10) Naloxone HCl 0.2 mg 04/26/24 21:23 Naloxone 0.4 Mg/Ml 1 Ml Vial IV Q2M PRN Opioid Reversal Nicotine 1 patch 04/27/24 15:00 04/28/24 07:38 Nicotine 21mg/24hr Patch TRANSDERM 1 patch DAILY FAVIOLA Administration Ondansetron HCl 4 mg 04/26/24 21:23 Ondansetron 4 Mg/2 Ml Vial IVP Q8HR PRN Nausea And Vomiting Pantoprazole Sodium 40 mg 04/27/24 09:00 04/28/24 07:39 Pantoprazole 40 Mg/10 Ml Vial IV 40 mg DAILY FAVIOLA Administration Petrolatum 1 applic 04/27/24 23:58 Zinc Oxide Paste (Z-Guard) 1 Applic TOPICAL Q2HR PRN Wound Healing Protocol Intake and Output 04/27/24 04/28/24 04/28/24 22:59 06:59 14:59 Output Total 225 200 Balance -225 -200 Output: Urine 225 200 Other: Voiding Method Urinal Urinal # Voids 1 04/27/24 05:17 04/27/24 05:18
--- NOTE | 2024-04-28 13:04 | P.CNOR ---
History of Present Illness - [facility] Consult date: 04/28/24 Requesting physician: Lamonte E Sheet Consult reason: other (left hip pain after fall) History of present illness: Patient is a 73-year-old male who presents to the emergency department for evaluation due to altered mental status. Patient was found down after a fall with left hip pain. Patient does have a history of metastatic esophageal cancer with metastasis to the left acetabulum. Orthopedics was consulted due to left hip pain after the fall. Patient was seen at bedside this morning on 5 N. lying in the semirecumbent position. Patient states normally he does ambulate with t he aid of crutches. He says he has not ambulated since this past Sunday. Patient says he does follow with Dr. Salgado in regards to his cancer treatments. Patient states he has had some ongoing left hip pain as well as some low back pain. Patient denies any recent traumas or new areas of pain. Patient denies any previous surgery to the left hip. Patient also mentions she does have a history of some arthritis in the left hip. Patient states the pain is 6/10. Patient denies any saddle anesthesia. Patient denies any other orthopedic complaints at this time. Past Medical History Past Medical History: Cancer, COPD, Hyperlipidemia, Musculoskeletal Disorder, Osteoarthritis (OA), Prostate Disorder, Skin Disorder Additional Past Medical History / Comment(s): abdominal aortic aneurysm has 1 stent, diarrhea, hx skin cancer, hx prostate cancer, hx throat/vocal cord cancer, hx oral cancer, esophageal cancer-had chemo & radiation completed 04/2021, couple patches of itchy skin, 90% blockage in one of coronary arteries-taking nitrate for, takes gabapentin for back pain. pt states he has been coughing up some blood and has spot on his lung per PET scan. Bone CA L hip History of Any Multi-Drug Resistant Organisms: None Reported Past Surgical History: Appendectomy, Orthopedic Surgery, Prostate Surgery Additional Past Surgical History / Comment(s): rt shoulder surgery, oral cancer surgery, left cataract, prostatectomy, aortic stent in abdomen Past Anesthesia/Blood Transfusion Reactions: No Reported Reaction Past Psychological History: No Psychological Hx Reported Smoking Status: Current every day smoker Past Alcohol Use History: None Reported Additional Past Alcohol Use History / Comment(s): 2 PPD, has smoked for 54 yrs Past Drug Use History: None Reported - Past Family History Sister(s) Family Medical History: Deep Vein Thrombosis (DVT) Mother Family Medical History: Cancer Additional Family Medical History / Comment(s): Breast cancer. Medications and Allergies Home Medications Medication Instructions Recorded Confirmed Type Aspirin [Adult Low Dose Aspirin EC] 81 mg PO DAILY 12/09/20 04/27/24 History Atorvastatin [Lipitor] 80 mg PO DAILY 07/06/21 04/27/24 History Isosorbide Mononitrate [Isosorbide 30 mg PO DAILY 09/18/22 04/27/24 History Mononitrate ER] Albuterol Sulfate [Albuterol 1 puff INHALATION RT-Q6H PRN 04/27/24 04/27/24 History Sulfate Hfa] Gabapentin 600 mg PO TID 04/27/24 04/27/24 History HYDROcodone/APAP 7.5-325MG [[place] 1 tab PO QID PRN 04/27/24 04/27/24 History 7.5-325] Allergies Allergy/AdvReac Type Severity Reaction Status Date / Time pregabalin [From Lyrica] Allergy "spaced Verified 04/27/24 08:57 out and off balance" Physical Examination Inspection: Negative for any open fractures, significant open wounds/erythema. Some closed wounds present to the bilateral lower extremities over the shins. Sensation is equal, symmetric, by intact throughout the upper and lower extremities on exam. There is moderate tenderness with patient diffusely throughout the left hip. Some mild tenderness with patient diffusely throughout the lumbar spine at midline. Nontender on rest of exam. Patient does have limited range of motion in the left lower extremity and knee flexion's extension and hip flexion's extension secondary to referred pain, weakness and stiffness in the left hip. Patient is able to dorsi and plantarflex the left ankle albeit with limited motion. Patient is able to flex the right knee while resting in bed to about 60 degrees. Patient does have good range of motion throughout the bilateral upper extremities on exam. 4-/5 in all major motor groups in left lower extremity. 4/5 in all major motor groups in right lower extremity. 4+/5 in bilateral upper extremities =. Radial pulses intact, 2+ bilaterally. Cap refill under 3 seconds in digits of upper extremities. Negative Homans bilaterally. Results - Labs Labs: H & H 04/26/24 04/27/24 Range/Units 20:19 05:17 Hgb 10.3 L 10.6 L (13.0-17.5) gm/dL Hct 32.3 L 35.4 L (39.0-53.0) % Coagulation 04/26/24 Range/Units 20:19 INR 1.2 H (<1.2) Result Diagrams: 04/27/24 05:17 04/27/24 05:18 - Diagnostic results Hip x-ray: report reviewed, image reviewed (X-ray of the pelvis is negative for any fractures. There is evident osteoarthritis bilaterally. Negative for any dislocations.) Assessment and Plan Assessment: 1. Bilateral hip osteoarthritis; left hip pain; history of esophageal cancer with metastasis to the left acetabulum Plan: 1. Bilateral hip osteoarthritis; left hip pain; history of esophageal cancer with metastasis to the left acetabulum -I did discuss the findings of the imaging and exam with my attending, Dr. Turcios. At this time we are not recommending any emergent/urgent orthopedic surgical intervention. We are trevon mmending conservative measures with the use of pain medication and PT/OT. Patient may perform gentle range of motion exercises while resting in bed. Appreciate PT/OT recommendations. Patient okay to get up with the use of walker and assistance and bear weight to the bilateral lower extremities as tolerated. At this time we will defer the rest of the management to the primary medical team. Patient may follow-up in the outpatient setting as needed with Dr. Turcios. Orthopedics is signing off at this time. Please do not hesitate to contact us for any further questions. 2. Appreciate medical, cardiology, oncology management 3. Pain management -[place]; gabapentin 4. DVT prophylaxis -aspirin; heparin 5. GI prophylaxis -Protonix 6. PT/OT -weightbearing as tolerated with walker and assistance 7. Encourage incentive spirometer use 8. Appreciate consult Time with Patient: Less than 30
--- NOTE | 2024-04-28 19:40 | P.PN ---
Subjective This is a pleasant 73 years old male with past medical history of esophageal cancer, and also recently diagnosed with hip cancer and he is supposed to get radiotherapy this coming Sunday. He presents because of fall. He was bringing his groceries from the car to the house when he lost his step and he fell. Patient denies dizziness or loss of co nsciousness. After fall on his left side of the hip, is complaining from pain 09/16, he could not get up. He denies chest pain or dyspnea. No specific GI or symptoms. He complains from little cough and phlegm He smokes about 2 packs/day and he was counseled to quit and he agrees to the nicotine patch. No alcohol or illicit drugs. On exam he has significant bilateral leg swelling Patient is hemodynamically stable, afebrile Hemoglobin 10.6 other than that his CBC, BMP, LFT and INR were unremarkable Troponin is elevated 0.035, repeat troponin is normal at 0.032 at 0.032 at 0.0 28 proBNP is elevated 3770 CT of the head and brain is negative for acute process but there is slightly large right apex lung nodules Chest x-ray showing low lung volume with COPD chronic changes, no acute process other than that EKG sinus rhythm at [address] elevation but there is ST depression in V3-V5 04/28 Patient complaining from left hip pain secondary to acetabular metastatic disease related to his esophageal cancer Sister at bedside Patient states that he is supposed to get radiotherapy today but he missed his appointment because of the hospital Patient states he was able to ambulate at home using crutches with his left hip pain. No other new complaint no chest pain and dyspnea. And elevated troponin deemed by dog pound attendant secondary to type 2 diabetes mellitus We will consult hematology/oncology team And will consult PT/OT pending the recommendation Orthopedic team also evaluated the patient today per their recommendation no surgical intervention and patient can put weight on the lower extremity as tolerated Review of systems PULMONARY: No shortness of breath, no cough GASTROINTESTINAL: No diarrhea, no nausea, no vomiting, no abdominal pain. Normoactive bowel sounds. NEUROLOGICAL: No headaches, no weakness, no numbness. HEMATOLOGICAL: Denies any bleeding or petechiae. GENITOURINARY: Denies any burning micturition, frequency, or urgency. Active Medications Generic Name Dose Route Start Last Admin Trade Name Freq PRN Reason Stop Dose Admin Hydrocodone Bitart/Acetaminophen 1 each 04/27/24 10:21 04/28/24 07:49 Hydrocodone/Apap 7.5-325mg 1 Each Tab PO 1 each QID PRN Administration Moderate Pain (Scale 4 to 6) Albuterol Sulfate 2.5 mg 04/27/24 10:21 Albuterol Nebulized 2.5 Mg/3 Ml INHALATION RT-Q6H PRN Shortness Of Breath Aspirin 81 mg 04/27/24 10:30 04/28/24 07:39 Aspirin 81 Mg PO 81 mg DAILY FAVIOLA Administration Atorvastatin Calcium 80 mg 04/27/24 10:30 04/28/24 07:39 Atorvastatin 80 Mg Tab PO 80 mg DAILY FAVIOLA Administration Furosemide 40 mg 04/27/24 11:15 04/28/24 07:39 Furosemide 10 Mg/Ml 4 Ml Vial IV 40 mg DAILY FAVIOLA Administration Gabapentin 600 mg 04/27/24 16:00 04/28/24 17:24 Gabapentin 300 Mg Cap PO 600 mg TID FAVIOLA Administration Heparin Sodium (Porcine) 5,000 unit 04/27/24 16:00 04/28/24 17:24 Heparin Sodium,Porcine 5,000 Unit/Ml 1 Ml Vial SQ 5,000 unit Q8HR FAVIOLA Administration Isosorbide Mononitrate 30 mg 04/27/24 10:30 04/28/24 07:38 Isosorbide Mononitrate Er 30 Mg Tab.Er.24h PO 30 mg DAILY FAVIOLA Administration Morphine Sulfate 4 mg 04/26/24 21:23 04/28/24 17:27 Morphine Sulfate 4 Mg/Ml Syringe IV 4 mg Q4HR PRN Administration Severe Pain (Scale 7 to 10) Naloxone HCl 0.2 mg 04/26/24 21:23 Naloxone 0.4 Mg/Ml 1 Ml Vial IV Q2M PRN Opioid Reversal Nicotine 1 patch 04/27/24 15:00 04/28/24 07:38 Nicotine 21mg/24hr Patch TRANSDERM 1 patch DAILY FAVIOLA Administration Ondansetron HCl 4 mg 04/26/24 21:23 Ondansetron 4 Mg/2 Ml Vial IVP Q8HR PRN Nausea And Vomiting Pantoprazole Sodium 40 mg 04/27/24 09:00 04/28/24 07:39 Pantoprazole 40 Mg/10 Ml Vial IV 40 mg DAILY FAVIOLA Administration Petrolatum 1 applic 04/27/24 23:58 Zinc Oxide Paste (Z-Guard) 1 Applic TOPICAL Q2HR PRN Wound Healing Protocol Objective - Vital Signs Vital signs: Vital Signs Temp 99.2 F 04/28/24 12:25 Pulse 94 04/28/24 12:25 Resp 18 04/28/24 12:25 BP 91/48 04/28/24 12:25 Pulse Ox 95 04/28/24 12:25 FiO2 Intake & Output 04/27/24 04/28/24 04/28/24 18:59 06:59 18:59 Output Total 822 593 9861 Balance -550 -425 -1350 Weight 79.379 kg 79.379 kg Output: Urine 697 696 [id number] Other: Voiding Method Urinal Urinal Urinal # Voids 1 - Exam GENERAL: The patient is alert and oriented x3, not in any acute distress. Well developed, well nourished. HEENT: Pupils are round and equally reacting to light. EOMI. No scleral icterus. No conjunctival pallor. Normocephalic, atraumatic. No pharyngeal erythema. No thyromegaly. CARDIOVASCULAR: S1 and S2 present. No murmurs, rubs, or gallops. PULMONARY: Chest is clear to auscultation, no wheezing , no crackles. ABDOMEN: Soft, nontender, nondistended, normoactive bowel sounds. No palpable organomegaly. MUSCULOSKELETAL: No joint swelling or deformity. -EXTREMITIES: No cyanosis, clubbing, or pedal edema. Mild left hip tenderness, with limitation of movement because of pain NEUROLOGICAL: Gross neurological examination did not reveal any focal deficits. SKIN: No rashes. no petechiae. - Labs CBC & Chem 7: 04/27/24 05:17 04/27/24 05:18 Assessment and Plan Assessment: Fall without syncope Elevated troponin secondary to type 2 [place] Left hip pain secondary to metastatic esophageal cancer to the left acetabulum Bilateral leg swelling Recent history of hip cancer supposed to get radiotherapy in 1 week History of esophageal cancer hyperlipidemia Osteoarthritis COPD Plan: Consult hematology/oncology team and radiation oncology continue with aspirin and Lipitor C follow-up echocardiogram and if it is unremarkable is going to be cleared by dog pound attendant Continue with PT/OT evaluation Pain management Orthopedic team consult signed off the case, no need for surgical intervention Discontinue IV fluid and start IV Lasix Hematology/oncology team consult Labs and medication were reviewed.. Continue same treatment. Continue with symptomatic treatment. Resume home medication. Monitor labs and vitals. DVT and GI prophylaxis. Further recommendations as per clinical course of the patient DVT prophylaxis: Subcutaneous heparin GI Prophylaxis: Pepcid PT/OT: Pending Prognosis is guarded
[2024-04-29] MEDS: ZINC OXIDE PASTE (Z-GUARD) 1 APPLIC TOPICAL PRN (08:36)
[2024-04-29 08:41] LABS: BUN/Creat Ratio 11.25 Ratio (12.00-20.00); Calcium 8.2 mg/dL (8.7-10.3); Carbon Dioxide 29.5 mmol/L (21.6-31.8); Chloride 94 mmol/L (96-109); Glucose 84 mg/dL (70-110); Potassium 3.4 mmol/L (3.5-5.5); Sodium 138 mmol/L (135-145)
[2024-04-29] MEDS: POTASSIUM CHLORIDE ER 20 MEQ TAB.ER PO STA (11:59)
[2024-04-29 12:53] LABS: Anisocytosis Slight; Basophils % (A) 0 %; Eosinophils % (A) 0 %; HGB 9.8 gm/dL (13.0-17.5); Hypochromasia Moderate; Lymphocytes # (A) 0.3 k/uL (1.0-4.8); Lymphocytes % (A) 4 %; MCHC 31.6 g/dL (31.0-37.0); Mean Platelet Volume 8.4; Monocytes # (A) 0.6 k/uL (0-1.0); Monocytes % (A) 8 %; Neutrophils # (A) 6.4 k/uL (1.3-7.7); Neutrophils % (A) 85 %; Platelet Count 168 k/uL (150-450); RBC 3.37 m/uL (4.30-5.90); WBC 7.5 k/uL (3.8-10.6)
--- NOTE | 2024-04-29 13:19 | P.PN ---
Subjective This is a pleasant 73 years old male with past medical history of esophageal cancer, and also recently diagnosed with hip cancer and he is supposed to get radiotherapy this coming Sunday. He presents because of fall. He was bringing his groceries from the car to the house when he lost his step and he fell. Patient denies dizziness or loss of co nsciousness. After fall on his left side of the hip, is complaining from pain 09/16, he could not get up. He denies chest pain or dyspnea. No specific GI or symptoms. He complains from little cough and phlegm He smokes about 2 packs/day and he was counseled to quit and he agrees to the nicotine patch. No alcohol or illicit drugs. On exam he has significant bilateral leg swelling Patient is hemodynamically stable, afebrile Hemoglobin 10.6 other than that his CBC, BMP, LFT and INR were unremarkable Troponin is elevated 0.035, repeat troponin is normal at 0.032 at 0.032 at 0.0 28 proBNP is elevated 3770 CT of the head and brain is negative for acute process but there is slightly large right apex lung nodules Chest x-ray showing low lung volume with COPD chronic changes, no acute process other than that EKG sinus rhythm at [address] elevation but there is ST depression in V3-V5 04/28 Patient complaining from left hip pain secondary to acetabular metastatic disease related to his esophageal cancer Sister at bedside Patient states that he is supposed to get radiotherapy today but he missed his appointment because of the hospital Patient states he was able to ambulate at home using crutches with his left hip pain. No other new complaint no chest pain and dyspnea. And elevated troponin deemed by cleaning crew member secondary to type 2 diabetes mellitus We will consult hematology/oncology team And will consult PT/OT pending the recommendation Orthopedic team also evaluated the patient today per their recommendation no surgical intervention and patient can put weight on the lower extremity as tolerated 04/29 Patient still complaining from pain in his left hip area related to his metastatic cancerous disease Patient evaluated by radiation oncology today and they were trying to give him a dose of radiotherapy however patient declined because he feels so weak and tired I discussed the case with the patient and his sister at bedside. Looks like patient wants to pursue treatment with more palliative approach. The patient and his sister both asked me for him to be DNR and also they ask for hospice consult which is requested Patient is currently looks pain controlled and continue on narcotics and stool softeners as ordered Possible patient will need to be discharged to facility under hospice care if needed as it is hard for him to manage his care at home by himself or with limited family help Objective - Vital Signs Vital signs: Vital Signs Temp 97.8 F 04/29/24 11:55 Pulse 94 04/29/24 11:55 Resp 16 04/29/24 11:55 BP 99/55 04/29/24 11:55 Pulse Ox 99 04/29/24 11:55 FiO2 Intake & Output 04/28/24 04/29/24 04/29/24 18:59 06:59 18:59 Intake Total 240 797 Output Total 1950 100 Balance -1950 140 797 Weight 79.379 kg Intake: Oral 240 797 Output: Urine 1950 100 Other: Voiding Method Urinal Urinal Diaper Incontinent # Voids 1 2 - Exam GENERAL: The patient is alert and oriented x3, not in any acute distress. Well developed, well nourished. HEENT: Pupils are round and equally reacting to light. EOMI. No scleral icterus. No conjunctival pallor. Normocephalic, atraumatic. No pharyngeal erythema. No thyromegaly. CARDIOVASCULAR: S1 and S2 present. No murmurs, rubs, or gallops. PULMONARY: Chest is clear to auscultation, no wheezing , no crackles. ABDOMEN: Soft, nontender, nondistended, normoactive bowel sounds. No palpable organomegaly. MUSCULOSKELETAL: No joint swelling or deformity. -EXTREMITIES: No cyanosis, clubbing, or pedal edema. Mild left hip tenderness, with limitation of movement because of pain NEUROLOGICAL: Gross neurological examination did not reveal any focal deficits. SKIN: No rashes. no petechiae. - Labs CBC & Chem 7: 04/29/24 05:22 04/29/24 05:22 Labs: Abnormal Lab Results - Last 24 Hours (Table) 04/29/24 04/29/24 Range/Units 05:22 05:22 RBC 3.37 L (4.30-5.90) m/uL Hgb 9.8 L (13.0-17.5) gm/dL Hct 31.0 L (39.0-53.0) % RDW 18.0 H (11.5-15.5) % Lymphocytes # 0.3 L (1.0-4.8) k/uL Potassium 3.4 L (3.5-5.5) mmol/L Chloride 94 L (96-109) mmol/L Anion Gap 14.50 H (4.00-12.00) mmol/L BUN/Creatinine Ratio 11.25 L (12.00-20.00) Ratio Calcium 8.2 L (8.7-10.3) mg/dL Assessment and Plan Assessment: Fall without syncope Elevated troponin secondary to type 2 DC Left hip pain secondary to metastatic esophageal cancer to the left acetabulum Bilateral leg swelling Recent history of hip cancer supposed to get radiotherapy in 1 week History of esophageal cancer hyperlipidemia Osteoarthritis COPD Plan: Patient and sister asking for the patient to be DNR and asking for hospice consult which is requested upon their wishes. This looks appropriate and helpful for the patient to control his symptoms and directly care towards the symptoms rather than the disease itself. Consult hematology/oncology team and radiation oncology continue with aspirin and Lipitor C follow-up echocardiogram and if it is unremarkable is going to be cleared by cleaning crew member Continue with PT/OT evaluation Pain management Orthopedic team consult signed off the case, no need for surgical intervention Discontinue IV fluid and start IV Lasix Hematology/oncology team consult Labs and medication were reviewed.. Continue same treatment. Continue with symptomatic treatment. Resume home medication. Monitor labs and vitals. DVT and GI prophylaxis. Further recommendations as per clinical course of the patient DVT prophylaxis: Subcutaneous heparin GI Prophylaxis: Pepcid PT/OT: Pending Prognosis is guarded
--- NOTE | 2024-04-29 13:20 | P.PN ---
Subjective Progress Note Date: 04/29/24 Reason for Consult (text): High troponin, ST depression History of present illness: This is a 73-year-old male patient of Dr. Gladys Cordero with past medical history of coronary artery disease diagnosed on CT scan, tobacco use, hyperlipidemia, esophageal cancer, history of aortoiliac endograft done in [address] Hayes. We have been asked to evaluate the patient for high troponin and ST depression. Patient presented to the hospital due to altered mental status and had a fall with left hip pain. Patient denies mental status changes. He states that he has had ongoing pain and after the fall became significantly worse. He states he was bringing his groceries in and tripped. He has been using crutches prior to the fall. He denies having any chest pain or chest pressure no shortness of breath. Regarding esophageal cancer, patient was scheduled to start radiation therapy today. Blood pressure 131/66, heart rate 93, pulse ox 98% on 2 L nasal cannula. -EKG: Sinus rhythm, incomplete right bundle branch block, LAD, T wave abnormality -Chest x-ray: Low lung volumes. No acute process. COPD. -Left hip and pelvis x-ray: No acute process -CT head and cervical spine. No acute intracranial process. No evidence of cervical spine fracture. -Laboratory studies: WBC 7.8, hemoglobin 10.6. Sodium 134, potassium 3.5, BUN 17 and creatinine 0.63. Troponin 0.035, 0.032 and 0.028. proBNP 3770. -Home cardiac medications: Aspirin 81 mg daily, atorvastatin 80 mg daily, isosorbide 30 mg daily -Lexiscan Cardiolite stress test performed in the office on 04/13/2023 reveals negative stress test by EKG criteria. Normal myocardial perfusion and function. 04/29 Patient seen and examined. Patient is complaining of significant hip pain. He has been seen by orthopedics with no plan for any surgical interventions. Patient is also not eating or drinking. He was scheduled for radiation therapy but has refused that due to pain. Blood pressure 120/64, heart rate 109, pulse ox 97% on 3 L nasal cannula. Sodium 138, potassium 3.4, BUN 9 and creatinine 0.8. Patient has been maintained on IV Lasix 40 mg daily. Repeat chest x-ray will be ordered as well as CBC. Echocardiogram is pending. Physical examination: Gen: This is a 73-year-old male uncomfortable d/t pain VS: reviewed HEENT: Head is atraumatic, normocephalic. Pupils equal, round. Sclerae is anicteric. Voice is hoarse. NECK: Supple. No JVD. LUNGS: Clear to auscultation. No wheezes or rhonchi. No intercostal retractions. HEART: Regular rate and rhythm. No murmur. ABDOMEN: Soft No tenderness. EXTREMITIES: No pedal edema. No calf tenderness. NEUROLOGICAL: Patient is awake, alert and oriented x3. Assessment: Elevated troponins type II VT Fall, mechanical Left hip pain Coronary artery disease Hyperlipidemia Esophageal cancer with metastatic disease Tobacco use Plan: Continue patient's home cardiac medications Continue patient on IV Lasix 40 mg daily Monitor ANDRE, daily weights, electrolytes and renal function Repeat chest x-ray for CHF follow-up Obtain 2-D echocardiogram and Doppler study to assess cardiac structure and function Nurse practitioner note has been reviewed, I agree with documented findings and plan of care. Patient was seen and examined. I 73-year-old Objective - Vital Signs Vital signs: Vital Signs Temp 98.1 F 04/29/24 07:08 Pulse 109 H 04/29/24 08:42 Resp 16 04/29/24 07:08 BP 120/64 04/29/24 08:42 Pulse Ox 97 04/29/24 08:42 FiO2 Intake & Output 04/28/24 04/29/24 04/29/24 18:59 06:59 18:59 Intake Total 240 797 Output Total 1950 100 Balance -1950 140 797 Weight 79.379 kg Intake: Oral 240 797 Output: Urine 1950 100 Other: Voiding Method Urinal Urinal Diaper Incontinent # Voids 1 2 - Labs CBC & Chem 7: 04/29/24 05:22 04/29/24 05:22 Labs: Abnormal Lab Results - Last 24 Hours (Table) 04/29/24 Range/Units 05:22 Potassium 3.4 L (3.5-5.5) mmol/L Chloride 94 L (96-109) mmol/L Anion Gap 14.50 H (4.00-12.00) mmol/L BUN/Creatinine Ratio 11.25 L (12.00-20.00) Ratio Calcium 8.2 L (8.7-10.3) mg/dL
[2024-04-29] MEDS: SENNOSIDES 8.6 MG TAB PO SCH (14:04)
[2024-04-29] MEDS: bisacodyL 5 MG TABLET.DR PO PRN (14:04)
[2024-04-29] MEDS: polyethylene glycoL 3350 17 GM POWD.PACK PO SCH (14:04)
--- NOTE | 2024-04-29 15:09 | XR ---
EXAMINATION TYPE: XR chest 1V portable DATE OF EXAM: 04/29/2024 COMPARISON: 04/26/2024 CLINICAL INDICATION: Male, 73 years old with history of CHF; , TECHNIQUE: XR chest 1V portable views of the chest. FINDINGS: The lungs are clear and there is no pneumothorax, pleural effusion, or focal pneumonia. Heart size normal and no overt failure. Osseous structures demonstrate hypertrophic and degenerative changes of the spine. Emphysematous changes. Mediport catheter seen with the tip overlying the SVC. Suspect ther e is a metallic device overlying the upper vertebral column possibly related to IVC filter correlate clinically. IMPRESSION: 1. COPD. The interstitium is slightly increased relative to the prior exam and could represent early venous congestion or interstitial pneumonitis. [facility], , 04/29/2024 3:07 PM
--- NOTE | 2024-04-29 18:02 | CA ---
Transthoracic Echo Report Name: Shaun Arreola Age: 73 Gender: M : 1950 Exam Date: 04/29/2024 14:54 Exam Location: [facility] Ht (in): 71 Wt (lb): 175 Ordering Physician: Jackie Barriga Attending/Referring Phys: [id number], Linus Camera Supervisor Kate Christianson, MATTHEW Procedure CPT: Indications: LVF Cardiac Hx: Technical Quality: Technically difficult study Contrast 1: Total Dose (mL): Contrast 2: Total Dose (mL): MEASUREMENTS (Male / Female) Normal Values 2D ECHO LV Diastolic Diameter PLAX 4.8 cm 4.2 - 5.9 / 3.9 - 5.3 cm LV Systolic Diameter PLAX 3.7 cm IVS Diastolic Thickness 1.0 cm 0.6 - 1.0 / 0.6 - 0.9 cm LVPW Diastolic Thickness 1.1 cm 0.6 - 1.0 / 0.6 - 0.9 cm LV Relative Wall Thickness 0.4 RV Internal Dim ED PLAX 3.5 cm LA Systolic Diameter LX 2.9 cm 3.0 - 4.0 / 2.7 - 3.8 cm M-MODE LV Diastolic Diameter MM 5.0 cm 4.2 - 5.9 / 3.9 - 5.3 cm LV Systolic Diameter MM 3.2 cm LV Cardiac Index MM Teich 3635.7 cm???/min???m??? IVS Diastolic Thickness MM 0.9 cm 0.6 - 1.0 / 0.6 - 0.9 cm LVPW Diastolic Thickness MM 0.9 cm 0.6 - 1.0 / 0.6 - 0.9 cm LV Relative Wall Thickness MM 0.4 0.24 - 0.42 / 0.22 - 0.42 LV Mass Index MM 80.4 g/m??? 49 - 115 / 43 - 95 g/m??? Aortic Root Diameter MM 3.2 cm AV Cusp Separation MM 2.1 cm DOPPLER AV Peak Velocity 92.7 cm/s AV Peak Gradient 3.4 mmHg MV Area PHT 2.8 cm??? Mitral E Point Velocity 57.4 cm/s Mitral A Point Velocity 75.5 cm/s Mitral E to A Ratio 0.8 MV Deceleration Time 273.7 ms TR Peak Velocity 210.9 cm/s TR Peak Gradient 17.8 mmHg Right Ventricular Systolic Press 22.8 mmHg FINDINGS Left Ventricle Left ventricular ejection fraction is estimated at 50-55 %. Left ventricular cavity size normal. Left ventricular wall thickness normal. Right Ventricle Mild right ventricular dilatation. Right ventricular systolic pressure within normal limits. Right Atrium Right atrium not well visualized. No right atrial thrombus or mass seen. Left Atrium Normal left atrial size. No left atrial thrombus or mass present. Mitral Valve Mitral valve not well visualized. Aortic Valve Aortic valve not well visualized. Mild aortic regurgitation. Tricuspid Valve Structurally normal tricuspid valve. Mild tricuspid regurgitation. Pulmonic Valve Structurally normal pulmonic valve. Trace pulmonic regurgitation. Pericardium No pericardial effusion. Aorta Normal size aortic root and proximal ascending aorta. CONCLUSIONS Left ventricular ejection fraction 50-55% Mild aortic regurgitation Mild tricuspid regurgitation No pericardial effusion Previewed by: Dr. Roosevelt Anand DO (Electronically Signed) Final Date: 29 April 2024 18:01
--- NOTE | 2024-04-29 18:20 | P.CONS ---
History of Present Illness - Reason for Consult Consult date: 04/29/24 Hx eso carcinoma, bone mets Requesting physician: Lamonte E Sheet - Chief Complaint weak, fall, debility - History of Present Illness Mr. Arreola is a pleasant patient of Dr. Salgado'freddie with a history of prostate cancer as well as esophageal carcinoma. Patient was diagnosed December 2020 when he presented with complaints of progressive dysphagia, EGD revealed thickened mucosal folds with friable mucosa at distal esophagus extending from 38 to 41 cm from incisor, biopsy positive for invasive adenocarcinoma with high- grade dysplasia, HER2 negative, NGS positive for TP53, PIK 3 and CDK 2A mutations. Low TMB, MS-S, PDL CPS score to. Staging CT CAP revealed no evidence of metastatic disease. EUS revealed completely obstructing mass endoscopic stage T3 N0. 03/11/2021 PET was negative for metastatic disease. Patient was started on neoadjuvant treatment with FOLFOX and radiation, completed 04/22/2021. Follow-up scans showed significant improvement. Patient was sent to [facility] for consideration for esophagectomy however, due to aneurysm he was referred back to vascular, ultimately he was not felt to be a surgical candidate. 07/27/2021 repeat EGD and biopsy was negative for malignancy. 10/04/2021 follow-up PET showed osseous mets at T9 and large area right posterior acetabulum, 6 mm right upper lobe lung nodule, PSA was 84. Patient had Hx of prostate carcinoma with prostatectomy in 2003. In October 2017 PSA was 1.97. 11/2018 PSA was 13.1, he was given a dose of Lupron at that time. PSA 0.3 in November 2019. February 2020 it was up to 6.7. He was given another dose of Lupron. 11/2021 he was started on Lupron and Xgeva. 02/10/[address] wed improvement in pelvic lesions related to metastatic prostate cancer, mild uptake at distal esophagus. PSA and PET scans have continued to be monitored with no evidence of disease, PSA <1. 04/14/2023 PET scan showed uptake right perihilar area associated with postobstructive changes in the right upper lobe, new uptake left acetabulum, stable sclerotic pelvic lesions. 05/31/2023 transbronchial biopsy of right upper lobe, positive for squamous cell carcinoma, lung primary. MRI of the hip 07/06/2023 showed a new lesion, patient refused bone biopsy. PSA was at 1.4. He was started on concurrent weekly Taxol/carbo with radiation, completed August 2023. 01/03/2024 PET showed improvement in lung ca ncer, no recurrent esophageal cancer however, left acetabulum lesion was increasing. Repeat CT CAP showed stable bone lesions, 2 subcentimeter lung nodules. Patient was referred to Rad Onc for painful bone mets, lost insurance and has not had treatment of any kind since Dec 2023. Maintenance immunotherapy with Imfinzi for NSCLC was denied by insurance. Plan to continue on Lupron. CT CAP 04/18/24-with contrast known lytic metastatic disease to left acetabulum more sclerotic appearance, no new definitive bony lesions. Similar right upper lobe nodule opacity measuring less than 1 cm circumferential thickening at the esophagus Pt currently admitted for fall, general debility. He reports that he has been ambulating with crutches because of the pain. He states that it was a misstep. He denied any headaches, dizziness, syncope, numbness or tingling, no vision loss or other neurological symptoms. Patient denies any other problems other than the pain in the right hip. X-ray of the left hip and pelvis no evidence for an acute process, mild to moderate hip osteoarthritis. Head and cervical spine CT without contrast no acute intercranial process, moderate to severe multilevel degenerative disc disease no fractures. Cardiology has seen the patient for elevated trop and ST elevation. Orthopedics has evaluated, no orthopedic surgical intervention planned. Pending Rad Onc evaluation Review of Systems 14 point review of systems is negative except as stated in HPI Past Medical History Past Medical History: Cancer, COPD, Hyperlipidemia, Musculoskeletal Disorder, Osteoarthritis (OA), Prostate Disorder, Skin Disorder Additional Past Medical History / Comment(s): abdominal aortic aneurysm has 1 stent, diarrhea, hx skin cancer, hx prostate cancer, hx throat/vocal cord cancer, hx oral cancer, esophageal cancer-had chemo & radiation completed 04/2021, couple patches of itchy skin, 90% blockage in one of coronary arteries- taking nitrate for, takes gabapentin for back pain. pt states he has been coughing up some blood and has spot on his lung per PET scan. Bone CA L hip History of Any Multi-Drug Resistant Organisms: None Reported Past Surgical History: Appendectomy, Orthopedic Surgery, Prostate Surgery Additional Past Surgical History / Comment(s): rt shoulder surgery, oral cancer surgery, left cataract, prostatectomy, aortic stent in abdomen Past Anesthesia/Blood Transfusion Reactions: No Reported Reaction Past Psychological History: No Psychological Hx Reported Smoking Status: Current every day smoker Past Alcohol Use History: None Reported Additional Past Alcohol Use History / Comment(s): 2 PPD, has smoked for 54 yrs Past Drug Use History: None Reported - Past Family History Sister(s) Family Medical History: Deep Vein Thrombosis (DVT) Mother Family Medical History: Cancer Additional Family Medical History / Comment(s): Breast cancer. Medications and Allergies Home Medications Medication Instructions Recorded Confirmed Type Aspirin [Adult Low Dose Aspirin EC] 81 mg PO DAILY 12/09/20 04/27/24 History Atorvastatin [Lipitor] 80 mg PO DAILY 07/06/21 04/27/24 History Isosorbide Mononitrate [Isosorbide 30 mg PO DAILY 09/18/22 04/27/24 History Mononitrate ER] Albuterol Sulfate [Albuterol 1 puff INHALATION RT-Q6H PRN 04/27/24 04/27/24 History Sulfate Hfa] Gabapentin 600 mg PO TID 04/27/24 04/27/24 History HYDROcodone/APAP 7.5-325MG [[place] 1 tab PO QID PRN 04/27/24 04/27/24 History 7.5-325] Allergies Allergy/AdvReac Type Severity Reaction Status Date / Time pregabalin [From Lyrica] Allergy "spaced Verified 04/27/24 08:57 out and off balance" Physical Exam Vitals: Vital Signs Temp Pulse Resp BP Pulse Ox 04/29/24 11:55 97.8 F 94 16 99/55 99 04/29/24 08:42 109 H 120/64 97 04/29/24 07:08 98.1 F 72 16 98/57 97 04/29/24 01:44 98.1 F 102 H 17 118/69 93 L 04/28/24 19:19 97.5 F L 109 H 18 112/62 93 L 04/28/24 17:25 137/76 Intake and Output 04/29/24 04/29/24 04/29/24 06:59 14:59 22:59 Intake Total 240 1037 Balance 240 1037 Intake: Oral 240 1037 Other: Voiding Method Urinal Diaper Incontinent # Voids 2 - Constitutional General appearance: average body habitus, cooperative, no acute distress - EENT Eyes: anicteric sclerae, EOMI, poor dentition ENT: hearing grossly normal, normal oropharynx - Neck Neck: no lymphadenopathy - Respiratory Respiratory: bilateral: CTA - Cardiovascular Rhythm: regular Heart sounds: normal: S1, S2 Abnormal Heart Sounds: no systolic murmur, no diastolic murmur, no rub, no S3 Gallop, no S4 Gallop, no click, no other leg Peripheral Edema: bilateral: None - Gastrointestinal General gastrointestinal: no absent bowel sounds, no decreased bowel sounds, no distended, no hepatomegaly, no hyperactive bowel sounds, normal bowel sounds, no organomegaly, no rigid, no scaphoid, soft, no splenomegaly, no tenderness, no umbilical hernia, no ventral hernia - Integumentary Dry skin. Patient reports that the small abrasions on his forehead are from him falling asleep at his desk and his head occasionally hitting the table - Neurologic Neurologic: CNII-XII intact (Grossly) - Musculoskeletal Musculoskeletal: generalized weakness, strength equal bilaterally - Psychiatric Psychiatric: A&O x's 3, appropriate affect, intact judgment & insight Results CBC & Chem 7: 04/29/24 05:22 04/29/24 05:22 Labs: Abnormal Lab Results - Last 24 Hours (Table) 04/29/24 04/29/24 Range/Units 05:22 05:22 RBC 3.37 L (4.30-5.90) m/uL Hgb 9.8 L (13.0-17.5) gm/dL Hct 31.0 L (39.0-53.0) % RDW 18.0 H (11.5-15.5) % Lymphocytes # 0.3 L (1.0-4.8) k/uL Potassium 3.4 L (3.5-5.5) mmol/L Chloride 94 L (96-109) mmol/L Anion Gap 14.50 H (4.00-12.00) mmol/L BUN/Creatinine Ratio 11.25 L (12.00-20.00) Ratio Calcium 8.2 L (8.7-10.3) mg/dL Comments: X-ray reports reviewed CT Scan - head: report reviewed Assessment and Plan (1) Fall Current Visit: Yes Status: Acute Priority: High Code(s): W19.XXXA - UNSPECIFIED FALL, INITIAL ENCOUNTER SNOMED Code(s): 6954945 (2) Oligometastatic cancer Current Visit: Yes Status: Acute Priority: High Code(s): C79.9 - SECONDARY MALIGNANT NEOPLASM OF UNSPECIFIED SITE SNOMED Code(s): 8481566996 (3) Pain due to malignant neoplasm metastatic to bone Current Visit: Yes Status: Acute Priority: High Code(s): G89.3 - NEOPLASM RELATED PAIN (ACUTE) (CHRONIC); C79.51 - SECONDARY MALIGNANT NEOPLASM OF BONE SNOMED Code(s): 100483891 (4) Prostate carcinoma Current Visit: Yes Status: Chronic Priority: Medium Code(s): C61 - MALIGNANT NEOPLASM OF PROSTATE SNOMED Code(s): 041224975 (5) Carcinoma, lung Current Visit: Yes Status: Chronic Priority: Medium Code(s): C34.90 - MALIGNANT NEOPLASM OF UNSP PART OF UNSP BRONCHUS OR LUNG SNOMED Code(s): 340178200 (6) Esophageal cancer Current Visit: Yes Status: Chronic Priority: Medium Code(s): C15.9 - MALIGNANT NEOPLASM OF ESOPHAGUS, UNSPECIFIED SNOMED Code(s): 826634093 (7) Anemia Current Visit: Yes Status: Chronic Priority: Medium Code(s): D64.9 - ANEMIA, UNSPECIFIED SNOMED Code(s): 442953765 Plan: Fall, worse pain post fall -Patient states he has been walking with crutches because of painful bone let. He states that fall was a misstep. He reports that he fell on the left side where he has the bone met. -Patient was previously referred to radiation oncology for painful bone mets. Due to start treatment soon. Radiation Oncology consulted -Continue aggressive pain management, titrate for patient comfort -Medications for prevention of narcotic induced constipation History of prostate cancer, esophageal cancer and lung cancer -Diagnosis and treatment of each as stated in HPI -Patient remains on Lupron for prostate cancer. Most recent PSA 1.9 on 04/22 -Patient is not on any treatment for esophageal or lung cancer -Most recent CT CAP 04/18. No evidence of disease other than one acetabular bony metastasis. Oligometastatic disease. Patient has refused biopsy of the same, Dr. Salgado thinks that the bone met is from lung cancer. -Patient was referred to radiation oncology for painful bony metastases, he was supposed to start radiation soon. -Cont routine imaging and f/u with Dr. Salgado Mild anemia -Mild chronic anemia, secondary to extensive history of treatment for malignancy -Baseline hemoglobin 10 range -Continue to monitor for now. Transfuse for hemoglobin less than 7. -Further workup for the same can be completed outpatient
[2024-04-30] MEDS: ALBUTEROL NEBULIZED 2.5 MG/3 ML INHALATION PRN (09:35)
--- NOTE | 2024-04-30 11:12 | P.PN ---
Subjective Progress Note Date: 04/30/24 Reason for Consult (text): High troponin, ST depression History of present illness: This is a 73-year-old male patient of Dr. Gladys Cordero with past medical history of coronary artery disease diagnosed on CT scan, tobacco use, hyperlipidemia, esophageal cancer, history of aortoiliac endograft done in [address] Hayes. We have been asked to evaluate the patient for high troponin and ST depression. Patient presented to the hospital due to altered mental status and had a fall with left hip pain. Patient denies mental status changes. He states that he has had ongoing pain and after the fall became significantly worse. He states he was bringing his groceries in and tripped. He has been using crutches prior to the fall. He denies having any chest pain or chest pressure no shortness of breath. Regarding esophageal cancer, patient was scheduled to start radiation therapy today. Blood pressure 131/66, heart rate 93, pulse ox 98% on 2 L nasal cannula. -EKG: Sinus rhythm, incomplete right bundle branch block, LAD, T wave abnormality -Chest x-ray: Low lung volumes. No acute process. COPD. -Left hip and pelvis x-ray: No acute process -CT head and cervical spine. No acute intracranial process. No evidence of cervical spine fracture. -Laboratory studies: WBC 7.8, hemoglobin 10.6. Sodium 134, potassium 3.5, BUN 17 and creatinine 0.63. Troponin 0.035, 0.032 and 0.028. proBNP 3770. -Home cardiac medications: Aspirin 81 mg daily, atorvastatin 80 mg daily, isosorbide 30 mg daily -Lexiscan Cardiolite stress test performed in the office on 04/13/2023 reveals negative stress test by EKG criteria. Normal myocardial perfusion and function. 04/29 Patient seen and examined. Patient is complaining of significant hip pain. He has been seen by orthopedics with no plan for any surgical interventions. Patient is also not eating or drinking. He was scheduled for radiation therapy but has refused that due to pain. Blood pressure 120/64, heart rate 109, pulse ox 97% on 3 L nasal cannula. Sodium 138, potassium 3.4, BUN 9 and creatinine 0.8. Patient has been maintained on IV Lasix 40 mg daily. Repeat chest x-ray will be ordered as well as CBC. Echocardiogram is pending. 04/30 Patient seen and examined. Patient is complaining of some shortness of breath and has some wheezing noted today. He has some sputum production that he cannot seem to bring up. He is encouraged to use his inhalers. Blood pressure 95/57, heart rate 70s, pulse ox 92% on 2 L nasal cannula. No repeat blood work today. Patient has been maintained on IV Lasix 40 mg daily. Echocardiogram reveals EF 50 to 55%, mild aortic regurgitation, mild tricuspid regurgitation, no pericardial effusion. Repeat chest x-ray COPD, possible venous congestion or interstitial pneumonitis. Physical examination: Gen: This is a 73-year-old male uncomfortable d/t pain VS: reviewed HEENT: Head is atraumatic, normocephalic. Pupils equal, round. Sclerae is anicteric. Voice is hoarse. NECK: Supple. No JVD. LUNGS: Bilateral wheezing. No intercostal retractions. HEART: Regular rate and rhythm. No murmur. ABDOMEN: Soft No tenderness. EXTREMITIES: No pedal edema. No calf tenderness. NEUROLOGICAL: Patient is awake, alert and oriented x3. Assessment: Elevated troponins type II CT Fall, mechanical Left hip pain Coronary artery disease Hyperlipidemia Esophageal cancer with metastatic disease Tobacco use Plan: Continue patient's home cardiac medications Continue patient on IV Lasix 40 mg daily Monitor ANDRE, daily weights, electrolytes and renal function Patient encouraged to use inhalers Nurse practitioner note has been reviewed, I agree with documented findings and plan of care. Patient was seen and examined. I 73-year-old Objective - Vital Signs Vital signs: Vital Signs Temp 98.0 F 04/30/24 07:06 Pulse 95 04/30/24 01:10 Resp 16 04/30/24 07:06 BP 95/57 04/30/24 08:31 Pulse Ox 92 L 04/30/24 07:06 FiO2 Intake & Output 04/29/24 04/30/24 04/30/24 18:59 06:59 18:59 Intake Total 2357 480 237 Output Total 800 200 Balance 1557 280 237 Intake: Oral 2357 480 237 Output: Urine 800 200 Other: Voiding Method Urinal Urinal Diaper Diaper Incontinent Incontinent # Voids 5 # Bowel Movements 1 0 - Labs CBC & Chem 7: 04/29/24 05:22 04/29/24 05:22 Labs: Abnormal Lab Results - Last 24 Hours (Table) 04/29/24 Range/Units 05:22 RBC 3.37 L (4.30-5.90) m/uL Hgb 9.8 L (13.0-17.5) gm/dL Hct 31.0 L (39.0-53.0) % RDW 18.0 H (11.5-15.5) % Lymphocytes # 0.3 L (1.0-4.8) k/uL
--- NOTE | 2024-04-30 17:54 | P.PN ---
Subjective Progress Note Date: 04/30/24 Principal diagnosis: Pain from 1 metastatic site. Hx of 4 malignancies In follow-up today patient is reporting that he has pain control. He reports that he is no longer going to pursue active medical treatment for any disorders. He is opting for comfort measures. No new complaints. Objective - Vital Signs Vital signs: Vital Signs Temp 97.7 F 04/30/24 11:39 Pulse 85 04/30/24 11:39 Resp 16 04/30/24 11:39 BP 99/59 04/30/24 11:39 Pulse Ox 92 L 04/30/24 11:39 FiO2 Intake & Output 04/29/24 04/30/24 04/30/24 18:59 06:59 18:59 Intake Total 2357 480 1734 Output Total 827 575 6960 Balance 1557 280 134 Intake: Oral 2357 480 1734 Output: Urine 376 810 3636 Other: Voiding Method Urinal Urinal Diaper Diaper Incontinent Incontinent # Voids 5 # Bowel Movements 1 0 - Constitutional General appearance: Present: average body habitus, cooperative, no acute distress - EENT Eyes: Present: anicteric sclerae, EOMI ENT: Present: hearing grossly normal - Respiratory Details: Respirations even and unlabored at rest Respiratory: bilateral: CTA - Cardiovascular Rhythm: regular - Gastrointestinal General gastrointestinal: Present: normal bowel sounds, soft - Neurologic Neurologic: Present: CNII-XII intact - Musculoskeletal Musculoskeletal: Present: generalized weakness - Psychiatric Psychiatric: Present: A&O x's 3, appropriate affect, intact judgment & insight - Labs CBC & Chem 7: 04/29/24 05:22 04/29/24 05:22 Assessment and Plan (1) Fall Current Visit: Yes Status: Acute Priority: High Code(s): W19.XXXA - UNSPECIFIED FALL, INITIAL ENCOUNTER SNOMED Code(s): 6557754 (2) Oligometastatic cancer Current Visit: Yes Status: Acute Priority: High Code(s): C79.9 - SECONDARY MALIGNANT NEOPLASM OF UNSPECIFIED SITE SNOMED Code(s): 9921579236 (3) Pain due to malignant neoplasm metastatic to bone Current Visit: Yes Status: Acute Priority: High Code(s): G89.3 - NEOPLASM RELATED PAIN (ACUTE) (CHRONIC); C79.51 - SECONDARY MALIGNANT NEOPLASM OF BONE SNOMED Code(s): 268705429 (4) Prostate carcinoma Current Visit: Yes Status: Chronic Priority: Medium Code(s): C61 - MALIGNANT NEOPLASM OF PROSTATE SNOMED Code(s): 160297186 (5) Carcinoma, lung Current Visit: Yes Status: Chronic Priority: Medium Code(s): C34.90 - MALIGNANT NEOPLASM OF UNSP PART OF UNSP BRONCHUS OR LUNG SNOMED Code(s): 955042438 (6) Esophageal cancer Current Visit: Yes Status: Chronic Priority: Medium Code(s): C15.9 - MALIGNANT NEOPLASM OF ESOPHAGUS, UNSPECIFIED SNOMED Code(s): 117208899 (7) Anemia Current Visit: Yes Status: Chronic Priority: Medium Code(s): D64.9 - ANEMIA, UNSPECIFIED SNOMED Code(s): 692054418 Plan: Fall, worse pain post fall -Patient states he has been walking with crutches because of painful bone let. He states that fall was a misstep. He reports that he fell on the left side where he has the bone met. -Patient was previously referred to radiation oncology for painful bone mets. Was supposed to start treatment. He is no longer wanting treatment -Reporting good pain control at this time -Medications for prevention of narcotic induced constipation History of prostate cancer, esophageal cancer and lung cancer -Diagnosis and treatment of each as stated in consult -Patient on Lupron for prostate cancer. Most recent PSA 1.9 on 04/22 -Patient is not on any treatment for esophageal or lung cancer -Most recent CT CAP 04/18. No evidence of disease other than one acetabular bony metastasis. Oligometastatic disease. Patient has refused biopsy of the same, Dr. Salgado thinks that the bone met is from lung cancer. -Patient was referred to radiation oncology for painful bony metastases, he was supposed to start radiation soon. Mild anemia -Mild chronic anemia, secondary to extensive history of treatment for malignancy -Baseline hemoglobin 10 range, stable I was just curious to understand why the patient opted for hospice. He stated that basically, he has "had enough". From an oncology standpoint, at this time patient has oligometastatic disease, unknown primary. No current evidence to suggest widespread metastatic disease. Patient is supported in his choice. All future appointments with medical oncology will be canceled at this time. Patient has any further questions for medical oncology, please let us know.
--- NOTE | 2024-05-01 04:54 | P.PN ---
Subjective This is a pleasant 73 years old male with past medical history of esophageal cancer, and also recently diagnosed with hip cancer and he is supposed to get radiotherapy this coming Sunday. He presents because of fall. He was bringing his groceries from the car to the house when he lost his step and he fell. Patient denies dizziness or loss of co nsciousness. After fall on his left side of the hip, is complaining from pain 09/16, he could not get up. He denies chest pain or dyspnea. No specific GI or symptoms. He complains from little cough and phlegm He smokes about 2 packs/day and he was counseled to quit and he agrees to the nicotine patch. No alcohol or illicit drugs. On exam he has significant bilateral leg swelling Patient is hemodynamically stable, afebrile Hemoglobin 10.6 other than that his CBC, BMP, LFT and INR were unremarkable Troponin is elevated 0.035, repeat troponin is normal at 0.032 at 0.032 at 0.0 28 proBNP is elevated 3770 CT of the head and brain is negative for acute process but there is slightly large right apex lung nodules Chest x-ray showing low lung volume with COPD chronic changes, no acute process other than that EKG sinus rhythm at [address] elevation but there is ST depression in V3-V5 04/28 Patient complaining from left hip pain secondary to acetabular metastatic disease related to his esophageal cancer Sister at bedside Patient states that he is supposed to get radiotherapy today but he missed his appointment because of the hospital Patient states he was able to ambulate at home using crutches with his left hip pain. No other new complaint no chest pain and dyspnea. And elevated troponin deemed by maternity nurse secondary to type 2 diabetes mellitus We will consult hematology/oncology team And will consult PT/OT pending the recommendation Orthopedic team also evaluated the patient today per their recommendation no surgical intervention and patient can put weight on the lower extremity as tolerated 04/29 Patient still complaining from pain in his left hip area related to his metastatic cancerous disease Patient evaluated by radiation oncology today and they were trying to give him a dose of radiotherapy however patient declined because he feels so weak and tired I discussed the case with the patient and his sister at bedside. Looks like patient wants to pursue treatment with more palliative approach. The patient and his sister both asked me for him to be DNR and also they ask for hospice consult which is requested Patient is currently looks pain controlled and continue on narcotics and stool softeners as ordered Possible patient will need to be discharged to facility under hospice care if needed as it is hard for him to manage his care at home by himself or with limited family help 04/30 Patient and sister requested hospice care yesterday to be consulted which was called for him. As per staff patient was accepted under hospice care Plan for the patient to be discharged tomorrow to [facility] with hospice Oncology team are following and they are aware with these recommendations and plan Continue with pain management, pain looks controlled now Objective - Vital Signs Vital signs: Vital Signs Temp 97.6 F 04/30/24 19:18 Pulse 78 04/30/24 19:18 Resp 16 04/30/24 19:18 BP 87/55 04/30/24 19:18 Pulse Ox 97 04/30/24 19:18 FiO2 Intake & Output 04/30/24 04/30/24 05/01/24 06:59 18:59 06:59 Intake Total 480 1974 Output Total 200 1600 Balance 280 374 Intake: Oral 480 1974 Output: Urine 200 1600 Other: Voiding Method Urinal Diaper Incontinent # Bowel Movements 0 - Exam GENERAL: The patient is alert and oriented x3, not in any acute distress. Well developed, well nourished. HEENT: Pupils are round and equally reacting to light. EOMI. No scleral icterus. No conjunctival pallor. Normocephalic, atraumatic. No pharyngeal erythema. No thyromegaly. CARDIOVASCULAR: S1 and S2 present. No murmurs, rubs, or gallops. PULMONARY: Chest is clear to auscultation, no wheezing , no crackles. ABDOMEN: Soft, nontender, nondistended, normoactive bowel sounds. No palpable organomegaly. MUSCULOSKELETAL: No joint swelling or deformity. -EXTREMITIES: No cyanosis, clubbing, or pedal edema. Mild left hip tenderness, with limitation of movement because of pain NEUROLOGICAL: Gross neurological examination did not reveal any focal deficits. SKIN: No rashes. no petechiae. - Labs CBC & Chem 7: 04/29/24 05:22 04/29/24 05:22 Assessment and Plan Assessment: Fall without syncope Elevated troponin secondary to type 2 [place] Left hip pain secondary to metastatic esophageal cancer to the left acetabulum Bilateral leg swelling Recent history of hip cancer supposed to get radiotherapy in 1 week History of esophageal cancer hyperlipidemia Osteoarthritis COPD Plan: Patient requested hospice care. Hospice consult was placed. Patient planned to be discharged with hospice to facility Patient and sister asking for the patient to be DNR and asking for hospice consult which is requested upon their wishes. This looks appropriate and helpful for the patient to control his symptoms and directly care towards the symptoms rather than the disease itself. Consult hematology/oncology team and radiation oncology continue with aspirin and Lipitor C follow-up echocardiogram and if it is unremarkable is going to be cleared by maternity nurse Continue with PT/OT evaluation Pain management Orthopedic team consult signed off the case, no need for surgical intervention Discontinue IV fluid and start IV Lasix Hematology/oncology team consult Labs and medication were reviewed.. Continue same treatment. Continue with symptomatic treatment. Resume home medication. Monitor labs and vitals. DVT and GI prophylaxis. Further recommendations as per clinical course of the patient DVT prophylaxis: Subcutaneous heparin GI Prophylaxis: Pepcid PT/OT: Pending Prognosis is guarded
[2024-05-01 07:14] LABS: Glucose,Whole Blood 120 mg/dL (70-110)
[2024-05-01] MEDS: POTASSIUM CHLORIDE ER 20 MEQ TAB.ER PO STA (11:23)
--- NOTE | 2024-05-01 12:00 | P.PN ---
Subjective Progress Note Date: 05/01/24 Reason for Consult (text): High troponin, ST depression History of present illness: This is a 73-year-old male patient of Dr. Gladys Cordero with past medical history of coronary artery disease diagnosed on CT scan, tobacco use, hyperlipidemia, esophageal cancer, history of aortoiliac endograft done in [address] Hayes. We have been asked to evaluate the patient for high troponin and ST depression. Patient presented to the hospital due to altered mental status and had a fall with left hip pain. Patient denies mental status changes. He states that he has had ongoing pain and after the fall became significantly worse. He states he was bringing his groceries in and tripped. He has been using crutches prior to the fall. He denies having any chest pain or chest pressure no shortness of breath. Regarding esophageal cancer, patient was scheduled to start radiation therapy today. Blood pressure 131/66, heart rate 93, pulse ox 98% on 2 L nasal cannula. -EKG: Sinus rhythm, incomplete right bundle branch block, LAD, T wave abnormality -Chest x-ray: Low lung volumes. No acute process. COPD. -Left hip and pelvis x-ray: No acute process -CT head and cervical spine. No acute intracranial process. No evidence of cervical spine fracture. -Laboratory studies: WBC 7.8, hemoglobin 10.6. Sodium 134, potassium 3.5, BUN 17 and creatinine 0.63. Troponin 0.035, 0.032 and 0.028. proBNP 3770. -Home cardiac medications: Aspirin 81 mg daily, atorvastatin 80 mg daily, isosorbide 30 mg daily -Lexiscan Cardiolite stress test performed in the office on 04/13/2023 reveals negative stress test by EKG criteria. Normal myocardial perfusion and function. 04/29 Patient seen and examined. Patient is complaining of significant hip pain. He has been seen by orthopedics with no plan for any surgical interventions. Patient is also not eating or drinking. He was scheduled for radiation therapy but has refused that due to pain. Blood pressure 120/64, heart rate 109, pulse ox 97% on 3 L nasal cannula. Sodium 138, potassium 3.4, BUN 9 and creatinine 0.8. Patient has been maintained on IV Lasix 40 mg daily. Repeat chest x-ray will be ordered as well as CBC. Echocardiogram is pending. 04/30 Patient seen and examined. Patient is complaining of some shortness of breath and has some wheezing noted today. He has some sputum production that he cannot seem to bring up. He is encouraged to use his inhalers. Blood pressure 95/57, heart rate 70s, pulse ox 92% on 2 L nasal cannula. No repeat blood work today. Patient has been maintained on IV Lasix 40 mg daily. Echocardiogram reveals EF 50 to 55%, mild aortic regurgitation, mild tricuspid regurgitation, no pericardial effusion. Repeat chest x-ray COPD, possible venous congestion or interstitial pneumonitis. 05/01 Patient is seen and examined. Patient states that he is not feeling well. He continues to have a cough that is congested. Nebulizers are available and seem to help him. Blood pressure 102/60, heart rate 92, pulse ox 94% on 3 L nasal cannula. Patient has been maintained on IV Lasix. He is urinating into brief so output is not accurate. Physical examination: Gen: This is a 73-year-old male uncomfortable d/t pain VS: reviewed HEENT: Head is atraumatic, normocephalic. Pupils equal, round. Sclerae is anicteric. Voice is hoarse. NECK: Supple. No JVD. LUNGS: Bilateral wheezing. No intercostal retractions. HEART: Regular rate and rhythm. No murmur. ABDOMEN: Soft No tenderness. EXTREMITIES: No pedal edema. No calf tenderness. NEUROLOGICAL: Patient is awake, alert and oriented x3. Assessment: Elevated troponins type II [place] Fall, mechanical Left hip pain Coronary artery disease Hyperlipidemia Esophageal cancer with metastatic disease Tobacco use Plan: Continue patient's home cardiac medications Discontinue IV Lasix No further cardiac workup at this time Cardiology will sign off this case and follow on an as-needed basis. Please reconsult for any new concerns. Patient may follow-up in the office in one to 2 weeks. Nurse practitioner note has been reviewed, I agree with documented findings and plan of care. Patient was seen and examined. I 73-year-old Objective - Vital Signs Vital signs: Vital Signs Temp 98.2 F 05/01/24 07:09 Pulse 92 05/01/24 07:09 Resp 18 05/01/24 07:09 BP 102/60 05/01/24 07:09 Pulse Ox 94 L 05/01/24 01:25 FiO2 Intake & Output 04/30/24 05/01/24 05/01/24 18:59 06:59 18:59 Intake Total 1973 Output Total 1600 150 Balance 374 -150 Weight 79.379 kg Intake: Oral 1973 Output: Urine 1600 150 Other: Voiding Method Urinal Urinal Diaper Diaper Incontinent Incontinent # Bowel Movements 0 - Labs CBC & Chem 7: 04/29/24 05:22 04/29/24 05:22 Labs: Abnormal Lab Results - Last 24 Hours (Table) 05/01/24 Range/Units 07:12 POC Glucose (mg/dL) 120 H (70-110) mg/dL
[2024-05-01 12:18] LABS: Glucose,Whole Blood 111 mg/dL (70-110)
[2024-05-01 14:38] VITALS: PULSE 91; TEMP 97.7
[2024-05-01 14:39] VITALS: BP 95/45
--- NOTE | 2024-05-01 14:45 | P.DS ---
Providers Date of admission: 04/29/24 06:35 Expected date of discharge: 05/01/24 Attending physician: Carina Ravi Consults: 04/27/24 10:21 Consult Physician Urgent Consulting Provider: Clinton Brooke Consult Reason/Comments: hihg troponin, st depression Do you want consulting provider notified?: Yes 04/27/24 11:00 Consult Physician Routine Consulting Provider: Jose Turcios Consult Reason/Comments: left hip pain after fall Do you want consulting provider notified?: Yes 04/28/24 14:02 Consult Physician Routine Consulting Provider: Cameron Salguero Consult Reason/Comments: radiation left hip Do you want consulting provider notified?: Yes Consult Physician Routine Consulting Provider: Mikal Grajeda Consult Reason/Comments: history of esophageal ca with left hip mets Do you want consulting provider notified?: Yes Primary care physician: Stanton Ontiveros Hospital Course: Final diagnosis Fall without syncope Elevated troponin secondary to type 2 [place] Left hip pain secondary to metastatic esophageal cancer to the left acetabulum Bilateral leg swelling Recent history of hip cancer supposed to get radiotherapy in 1 week History of esophageal cancer hyperlipidemia Osteoarthritis COPD Discharge disposition Patient is being discharged in a stable condition with guarded prognosis to [facility]. Patient will follow-up with Dr. Ontiveros in the outpatient setting upon discharge. Patient is to continue with hospice services. Total time taken is greater than 35 minutes. Hospital course This is a 73-year-old male who was recently admitted with falls and generalized weakness. Patient with significant history of esophageal cancer also recently diagnosed with hip cancer was supposed to undergo radiation treatment although has decided on hospice. Patient has met with [facility] hospice and is agreeable. Patient will be going to [facility] for continued hospice services. Patient does not want any further oncological services. Please refer to other consultation notes for further HPI. Currently no reports of chest pain, shortness of breath, or palpitations. Patient is afebrile. No reports of nausea or vomiting and patient is tolerating diet. Patient will be discharged to [facility] today. Overall poor prognosis Physical exam: Gen: This is a 73-year-old male who is awake, alert and oriented x 3, thin build, elderly appearing, ill-appearing HEENT: Head is atraumatic, normocephalic. Pupils equal, round. Sclerae is anicteric. NECK: Supple. No JVD. No lymphadenopathy. No thyromegaly. LUNGS: Diminished breath sounds bilaterally otherwise clear to auscultation. No wheezes or rhonchi. No intercostal retractions. HEART: S1, S2 are muffled ABDOMEN: Soft. Bowel sounds are present. No masses. No tenderness. EXTREMITIES: No pedal edema. No calf tenderness. NEUROLOGICAL: Patient is awake, alert and oriented x3. Cranial nerves 2 through 12 are grossly intact. Diffusely weak Please refer to medication reconciliation sheet for a list of medications. The impression and plan of care has been dictated by Liliana Villar, Nurse Practitioner as directed. Dr. Trav MD I have performed a history and examination and MDM of this patient, discussed the same with the dictator, and agree with the dictator's assessment and plan as written ,documented as a scribe. Based on total visit time, I have performed more than 50% of the visit. Patient Condition at Discharge: Fair Plan - Discharge Summary New Discharge Prescriptions: New bisacodyL [Dulcolax] 10 mg PO DAILY PRN tab PRN Reason: Constipation polyethylene glycoL 3350 [Miralax] 17 gm PO DAILY packet Sennosides [Senokot] 8.6 mg PO BID tab Nicotine 21Mg/24Hr Patch [Habitrol] 1 patch TRANSDERM DAILY patch Heparin Sodium,Porcine (1 ml) [Heparin Sodium] 5,000 unit SQ Q8HR each Continue Albuterol Sulfate [Albuterol Sulfate Hfa] 1 puff INHALATION RT-Q6H PRN PRN Reason: Shortness Of Breath Aspirin [Adult Low Dose Aspirin EC] 81 mg PO DAILY Atorvastatin [Lipitor] 80 mg PO DAILY Isosorbide Mononitrate [Isosorbide Mononitrate ER] 30 mg PO DAILY HYDROcodone/APAP 7.5-325MG [[place] 7.5-325] 1 tab PO QID PRN PRN Reason: Pain Gabapentin 600 mg PO TID Discharge Medication List Aspirin [Adult Low Dose Aspirin EC] 81 mg PO DAILY 12/09/20 [History] Atorvastatin [Lipitor] 80 mg PO DAILY 07/06/21 [History] Isosorbide Mononitrate [Isosorbide Mononitrate ER] 30 mg PO DAILY 09/18/22 [History] Albuterol Sulfate [Albuterol Sulfate Hfa] 1 puff INHALATION RT-Q6H PRN 04/27/24 [History] Gabapentin 600 mg PO TID 04/27/24 [History] HYDROcodone/APAP 7.5-325MG [[place] 7.5-325] 1 tab PO QID PRN 04/27/24 [History] Heparin Sodium,Porcine (1 ml) [Heparin Sodium] 5,000 unit SQ Q8HR each 05/01/24 [Rx] Nicotine 21Mg/24Hr Patch [Habitrol] 1 patch TRANSDERM DAILY patch 05/01/24 [Rx] Sennosides [Senokot] 8.6 mg PO BID tab 05/01/24 [Rx] bisacodyL [Dulcolax] 10 mg PO DAILY PRN tab 05/01/24 [Rx] polyethylene glycoL 3350 [Miralax] 17 gm PO DAILY packet 05/01/24 [Rx] Follow up Appointment(s)/Referral(s): Stanton Ontiveros DO [Primary Care Provider] - 1-2 days Activity/Diet/Wound Care/Special Instructions: Patient is going to [facility] on hospice Continue current supportive measures and comfort measures Discharge Disposition: TRANSFER TO SNF/ECF
[2024-05-01 17:13] LABS: Glucose,Whole Blood 127 mg/dL (70-110)
[2024-05-01 23:13] VITALS: RESP 16
== END 2024-05-01 23:00 | disposition hospice, inpatient (51) | DRG 542 ==
LOC: EC 20:00 → 3SCARD 21:24 → 4SSUR 04-27 12:19 → 5NMEDONC 04-27 12:52 → OBSVTOIN 04-29 06:35
PROVIDERS: ADMIT Hospitalist; ATTEND Hospitalist
DX: C79.51 Secondary malignant neoplasm of bone (principal); I21.A1 Myocardial infarction type 2; C15.5 Malignant neoplasm of lower third of esophagus; C34.10 Malignant neoplasm of upper lobe, unspecified bronchus or lung; Z51.5 Encounter for palliative care; Z66 Do not resuscitate; R13.10 Dysphagia, unspecified; D63.0 Anemia in neoplastic disease; J44.9 Chronic obstructive pulmonary disease, unspecified; Z95.828 Presence of other vascular implants and grafts; E11.9 Type 2 diabetes mellitus without complications; D64.81 Anemia due to antineoplastic chemotherapy; M16.0 Bilateral primary osteoarthritis of hip; E78.5 Hyperlipidemia, unspecified; I25.10 Atherosclerotic heart disease of native coronary artery without angina pectoris; G89.3 Neoplasm related pain (acute) (chronic); S00.81XA Abrasion of other part of head, initial encounter; F17.210 Nicotine dependence, cigarettes, uncomplicated; T45.1X5A Adverse effect of antineoplastic and immunosuppressive drugs, initial encounter; R32 Unspecified urinary incontinence; Z79.82 Long term (current) use of aspirin; Z79.899 Other long term (current) drug therapy; Z17.32 Human epidermal growth factor receptor 2 negative status; Z85.46 Personal history of malignant neoplasm of prostate; Z92.3 Personal history of irradiation; Z85.828 Personal history of other malignant neoplasm of skin; Z85.819 Personal history of malignant neoplasm of unspecified site of lip, oral cavity, and pharynx; Z85.21 Personal history of malignant neoplasm of larynx; W18.30XA Fall on same level, unspecified, initial encounter; Y92.89 Other specified places as the place of occurrence of the external cause; Z88.8 Allergy status to other drugs, medicaments and biological substances
CPT/HCPCS: 36415; 70450; 71045; 71046; 72125; 73502; 80048; 80053; 81003; 82550; 83605; 83735; 83880; 84100; 84443; 84484; 85025; 85610; 85730; 93005; 93306; 94640; 94760; 96361; 96372; 96374; 96375; 96376; 99285